=== PATIENT | female | born 1960 | race Two or more races ===

== ENCOUNTER 2020-02-11 13:58 | Inpatient (IN) | payer MEDICARE, OTHER ==
[~2020-02-11] VITALS: Ht 165.1 cm; Wt 74.9 kg
[2020-02-11 16:23] VITALS: BP 128/94
[2020-02-11] MEDS ORDERED: MAG HYDROX/AL HYDROX/SIMETH 30 ML ORAL.SUSP PO PRN ×2 (16:45)
[2020-02-11] MEDS ORDERED: METHYL SALICYLATE/MENTHOL TOPICAL OINTMENT 57GM TUBE. TP PRN ×2 (16:45)
[2020-02-11] MEDS ORDERED: MAGNESIUM HYDROXIDE 2,400 MG/30 ML ORAL.SUSP. PO PRN ×2 (16:45)
[2020-02-11] MEDS ORDERED: ACETAMINOPHEN 325 MG TABLET PO PRN (16:45)
--- NOTE | 2020-02-11 17:00 | NUR ---
Admission Note with Justification for Admission to [facility] Patient admitted to [facility] for protective oversight for emergency stabilization of acute psychiatric crisis. Pt admitted from: [facility] ER Mode of arrival: Secure Transport Accompanied By: Secure Transport Precipitating behaviors that initiated intake and admission: Patient was reportedly for agitation, aggression, scared, unable to settle, skin picking, and had six falls in a 24hour period. Description of failure of out patient attempts at stabilization in previous setting list behavior and medication trials: Patient recently returned form [facility], sent to [facility] ER Behaviors and assessment findings upon admission: Patient was minimally responsive to questions or directions. She did not assist in transfer from Secure transport and -weighted as staff transferred her into a wheelchair and then into her bed. She was minimally participatory in assessment and when asked questions. Patient has multiple tattoos and some mild redness in skin folds. She has several small wounds on her buttocks; photos taken. She also has small wounds in between her left great toe and second toe, and an abrasion just inferior to her left knee. Plan: Admit for protective oversight for adjustment and stabilization of medications, behaviors and mood. Intense treatment regimen including groups, medication adjustments, therapy, consistent regimen for ADL's, self care, and sleep hygiene. Daily monitoring by Inpatient staff, Psychiatry, and Medical Physician.
[2020-02-11] MEDS ORDERED: CETIRIZINE HCL 10 MG TABLET PO PRN (17:45)
[2020-02-11] MEDS ORDERED: LEVO25TA55 PO (17:50)
[2020-02-11] MEDS ORDERED: LORA-254 PO (17:50)
[2020-02-11] MEDS ORDERED: CETI10TA16 PO (17:50)
[2020-02-11] MEDS ORDERED: MELA3TAB4 PO (17:50)
[2020-02-11] MEDS ORDERED: LIPITOR80 MG PO (17:50)
[2020-02-11] MEDS ORDERED: CITA40TA12 PO (17:50)
[2020-02-11] MEDS ORDERED: METF500T16 PO (17:50)
[2020-02-11] MEDS ORDERED: LAMO100T5 PO (17:50)
[2020-02-11] MEDS ORDERED: METF10007 PO (17:50)
[2020-02-11] MEDS ORDERED: LISI10TA2 PO (17:50)
[2020-02-11] MEDS ORDERED: FAMO20TA5 PO (17:50)
[2020-02-11] MEDS: MELATONIN 3 MG TABLET PO SCH (20:52)
[2020-02-11] MEDS: ATORVASTATIN CALCIUM 20 MG TABLET PO SCH (20:52)
--- NOTE | 2020-02-11 21:11 | NUR ---
Pt lying in bed with eyes open at shift change. Pt calm but tearful at times, confused, and disorganized. Pt will will respond to questions with one word or short answers. Pt cooperative with assessment and compliant with medications administered whole in applesauce. Pt daughter/DPOA called and informed this nurse that pt better able to feed herself when given finger foods. Diet order modified in EMR.
--- NOTE | 2020-02-11 22:15 | PDOC ---
Exam Note: Gary Note: Please also refer to the separate dictated note~for this date of service dictated separately. Discussed the patient with Nursing staff reviewed the chart.~Reviewed interim history and current functioning. Reviewed vital signs,~Labs/ Radiology~and current medications noted below. Continue current treatment with the changes noted in the dictated addendum note Assessment: Vital Signs/I&O: Vital Signs Date Time Temp Pulse Resp B/P (MAP) Pulse Ox O2 Delivery O2 Flow Rate FiO2 02/11/20 20:26 98.3 95 02/11/20 16:23 102 18 128/94 (105) Current Medications: Meds: Current Medications Medications (Trade) Dose Ordered Sig/Britta Route PRN Reason Start Time Stop Time Status Last Admin Dose Admin Melatonin (Melatonin) 9 mg QHS PO 02/11/20 21:00 02/11/20 20:52 Atorvastatin Calcium (Lipitor) 80 mg QHS PO 02/11/20 21:00 02/11/20 20:52 I have reviewed the current psychotropics carefully including drug interactions. Risk benefit ratio favors no change other than as noted in my dictated progress note. KISHAN BECK MD Feb 11, 2020 22:15
[2020-02-12] MEDS: LEVOTHYROXINE 25 MCG TABLET. PO SCH (05:18)
[2020-02-12 05:43] VITALS: BP 119/74
[2020-02-12 07:34] LABS: ALBUMIN 3.2 g/dL (3.4-5.0); ALBUMIN/GLOBULIN RATIO 0.8 (1.0-1.7); CALCIUM 9.4 mg/dL (8.5-10.1); CREATININE 0.6 mg/dL (0.6-1.0); GFR 101.3; MAGNESIUM 1.8 mg/dL (1.8-2.4); POTASSIUM 3.3 mmol/L (3.5-5.1); TOTAL BILIRUBIN 0.5 mg/dL (0.2-1.0); TOTAL PROTEIN 7.3 g/dL (6.4-8.2)
[2020-02-12 07:47] LABS: BASO # 0.1 x10^3/uL (0.0-0.2); BASO % 1 % (0-3); EOS # 0.2 x10^3/uL (0.0-0.7); EOS % 3 % (0-3); HEMATOCRIT 44.6 % (36.0-47.0); LYMPH # 3.9 x10^3/uL (1.0-4.8); LYMPH % 44 % (24-48); MEAN CORPUSCULAR HEMOGLOBIN 32 pg (25-35); MEAN CORPUSCULAR HGB CONC 34 g/dL (31-37); MEAN CORPUSCULAR VOLUME 94 fL (79-100); MONO # 0.8 x10^3/uL (0.0-1.1); MONO % 9 % (0-9); NEUT # 3.9 x10^3uL (1.8-7.7); NEUT % 44 % (31-73); PLATELET COUNT 256 x10^3/uL (140-400); RED BLOOD COUNT 4.75 x10^6/uL (3.50-5.40); RED CELL DISTRIBUTION WIDTH 14.5 % (11.5-14.5); WHITE BLOOD COUNT 8.8 x10^3/uL (4.0-11.0)
[2020-02-12] MEDS: metFORMIN 500 MG TABLET PO SCH ×2 (09:22→17:20)
[2020-02-12] MEDS: LISINOPRIL 10 MG TABLET PO SCH (09:22)
[2020-02-12] MEDS: FAMOTIDINE 20 MG TABLET PO SCH (09:22)
[2020-02-12] MEDS: CITALOPRAM 20 MG TABLET. PO SCH (09:22)
[2020-02-12] MEDS: lamoTRIgine 100 MG TABLET. PO SCH (09:22)
[2020-02-12] MEDS ORDERED: POTASSIUM CHLORIDE 20 MEQ TABLET.ER. PO ONE (09:30)
[2020-02-12 15:57] VITALS: BP 138/81
[2020-02-12 16:31] LABS: THYROID STIM HORMONE (TSH) 1.386 uIU/mL (0.358-3.740)
--- NOTE | 2020-02-12 17:44 | NUR ---
Pt in room for morning meds and assessment. Pt sleeping, hard to wake for meds, but took them whole in pudding. Non-verbal for this nurse, tearful in the afternoon.
--- NOTE | 2020-02-12 20:09 | CONS ---
DATE OF CONSULTATION: 02/12/2020 REASON FOR CONSULTATION: Medical management. HISTORY OF PRESENT ILLNESS: The patient is a 60-year-old female patient who was referred from [facility], where she was seen for worsening agitation and aggression, she is scared, unable to settle, skin picking. She apparently was at [facility] and had had 6 falls and since then she has been unable to walk, all this in a background of major neurocognitive disorder, vascular Alzheimer with delusion, depression, behavioral disturbances. Medically, the patient is known to have hypertension, type 2 diabetes, gastroesophageal reflux disease, chronic back pain, and carpal tunnel syndrome. PAST PSYCHIATRIC HISTORY: Significant for schizophrenia, bipolar disorder, anxiety and Alzheimer's disease. PAST SURGICAL HISTORY: Unobtainable. ALLERGIES: She is allergic to ARIPIPRAZOLE and RISPERIDONE. MEDICATIONS: She is currently on cetirizine 10 mg once a day, atorvastatin calcium 80 mg once a day, lisinopril 10 mg once a day, lamotrigine 100 mg once a day, citalopram hydrobromide 40 mg once a day, lorazepam 0.5 mg every 6 hours, famotidine 20 mg once a day, metformin 1000 mg daily and 500 mg with supper, levothyroxine sodium 25 mcg once a day and melatonin 9 mg at bedtime. FAMILY HISTORY: Unobtainable. SOCIAL HISTORY: Unobtainable. PHYSICAL EXAMINATION: GENERAL: When I examined her this afternoon, she was resting slightly propped up in bed, in no apparent respiratory distress. She was pale, but no jaundice or cyanosis. No lymphadenopathy or thyromegaly. No jugular venous distention or limb edema. VITAL SIGNS: Her heart rate was 79, blood pressure was 138/81, temperature was 97.8, respiratory rate was 18 and oxygen saturation was 97%. HEAD, EYES, EARS, NOSE AND THROAT: Showed normocephalic, atraumatic. NECK: Supple. HEART: Showed normal first and second heart sounds. No gallop, rub or murmur. CHEST: Clear to auscultation. No crepitation or rhonchi. ABDOMEN: Distended, soft, nontender. NEUROLOGIC: She is awake, alert, opens eyes, occasionally attempts to mouth some words, but mostly she is nonverbal. She seemed to be able to move her upper extremities to much good extent than lower extremities and she has myoclonic jerks that is episodic and non-purposeful. LABORATORY DATA: Showed a white cell count of 8800, hemoglobin 15, hematocrit 44, MCV 94 and platelet count 256,000. Her serum sodium was 142, potassium 3.3, chloride 105, bicarbonate 29, anion gap of 8, BUN 8, creatinine 0.6, estimated GFR was 101 mL per minute. Her glucose was 100, calcium was 9.4, magnesium was 1.8. Serum iron, TIBC and iron saturation are low. Her total bilirubin, AST, ALT, alkaline phosphatase were normal. Total protein 7.3, albumin 3.2. Her serum triglycerides were 104, total cholesterol 105, LDL was 46, VLDL was 20, HDL was 39, the ratio was 2. Her vitamin B12 was 529 pg/mL, 25-hydroxy vitamin D is extremely low at 5.5 and her TSH was normal and her Treponema pallidum antibodies were nonreactive. IMPRESSION: In summary, this is a 60-year-old female patient who was admitted on account of increased agitation, aggression, scared, unable to settle, skin picking, she is mostly nonverbal, has had 6 falls after returning from [place], apparently all this in a background of major neurocognitive disorder, vascular Alzheimer with delusion, depression. Medically, she seemed to have some form of almost like myoclonic jerks. She is complaining of pain in her neck that she describes as shooting and in her lab work, she has hypokalemia and severe vitamin D deficiency. PLAN: My plan is to replenish potassium and vitamin D. I will also arrange for her to have a CT scan of her cervical spine and we will follow the rest of her lab work and make any necessary recommendations. Thank you, Dr. Cao for allowing me to participate in the care of this patient. LEE CASTANEDA MD DR: SUHAS/kitty JOB#: [id number] / [id number]
--- NOTE | 2020-02-12 20:23 | HP ---
ADMIT DATE: 02/11/2020 ADMISSION HISTORY/EVALUATION This late entry of 02/11/2020 covers the elements not covered in my initial note of 02/11/2020. SUBJECTIVE: I met with the patient in the evening of 02/11/2020. IDENTIFYING DATA: The patient is a 60-year-old female referred to us from [facility] where she presented from the skilled nursing where she resides on account of increased agitation and aggression. She had appeared paranoid, scared, unable to settle down, picking on her skin. This was all within the context of her dementia, Alzheimer's, vascular with delusions, behavioral disturbance. She was medically stable with no evidence of UTI, had failed outpatient psychiatric interventions, deemed a potential danger, disruptive, unable to be cared for at the facility resulting in this referral. CHIEF COMPLAINT: "No." HISTORY OF PRESENT ILLNESS: The patient has a history of dementia, Alzheimer's, vascular type. She has been residing at the above skilled nursing for some time. Recently, she has been more anxious, agitated with sleep and appetite changes, paranoid, marked mood lability, difficult to redirect, picking on her skin. She has failed outpatient psychiatric interventions resulting in this referral. PAST PSYCHIATRIC HISTORY: As above. MEDICAL HISTORY: Hypertension, type 2 diabetes mellitus, GERD, chronic back pain, carpal tunnel syndrome. ACCU-CHEKS: None. DIET: Regular, diabetic. She eats finger foods. Takes medications whole in applesauce, ambulates in Nina, normally ambulates with walker. ALLERGIES: ABILIFY. CODE STATUS: DNR. CURRENT PSYCHOTROPICS: Celexa 40 mg a day, Lamictal 100 mg a day, Ativan p.r.n., melatonin 9 mg at bedtime. FAMILY HISTORY: Noncontributory. SOCIAL HISTORY: No history of alcohol, drug abuse, physical, sexual or elder abuse. She is not known to be a perpetrator. REACTION TO HOSPITALIZATION: The patient oblivious of this. ASSETS: Supportive family, supportive living at the above facility. MENTAL STATUS EXAMINATION: I met with the patient in the evening of 02/11/2020 in her room. This was shortly after she was admitted. She was lying in bed, anxious, restless, constantly moving, oriented to herself, not very verbal. Insight, judgment, recent and remote memory, attention, concentration, fund of knowledge poor, consistent with her diagnoses. IMPRESSION: Major neurocognitive disorder, Alzheimer's, vascular with delusion; depression; behavioral disturbance; anxiety disorder, unspecified; impulse control disorder, unspecified. Rest unchanged as above. PLAN: Admit to Geropsychiatry Unit at . I will see the patient daily individually from a psychiatric standpoint. Medical followup per Dr. Hedrick/Dr. Salinas. Continue the patient on her current psychotropics, observe baseline, then adjust as clinically indicated. Consider changing Celexa to Zoloft and adjusting her Lamictal, considering an atypical antipsychotic Seroquel if psychotic symptoms, mood lability persist despite this. ESTIMATED LENGTH OF STAY: 10-12 days. DISPOSITION: Plans back to skilled nursing when stable. MAN Zenobia BECK MD DR: WILLIAM/kitty JOB#: [id number] / [id number]
[2020-02-12] MEDS: CHOLECALCIFEROL (VITAMIN D3) 50,000 UNIT CAPSULE PO SCH (20:35)
[2020-02-12] MEDS: ATORVASTATIN CALCIUM 20 MG TABLET PO SCH (20:35)
[2020-02-12] MEDS: POTASSIUM CHLORIDE 20 MEQ TABLET.ER. PO SCH (20:36)
[2020-02-12] MEDS: MELATONIN 3 MG TABLET PO SCH (20:36)
[2020-02-12] MEDS: LORazepam 0.5 MG TABLET PO PRN (20:40)
--- NOTE | 2020-02-12 20:42 | PN ---
DATE: 02/12/2020 PSYCHIATRIC PROGRESS NOTE This note covers elements not covered in my initial note 02/12/2020. SUBJECTIVE: I met with the patient evening of 02/12/2020 and staffed a treatment team meeting with the entire team morning of 02/12/2020. Reviewed further background historical information including history of frequent falls while at the half-way. She remains in a Broda chair, confused, unable to even feed herself, was nonweightbearing, potassium 3.31. Slept 7-1/2 hours previous night. At the treatment team meeting, we discussed with TRA Lees, Annemarie Carver and Randa, social service staff and Renata, activity therapy staff. In the evening, discussed with TRA Johnson. She has been tearful, somewhat tired in the morning. REVIEW OF SYSTEMS: No CV, , pulmonary, eye, ENT system symptoms on review. MENTAL STATUS EXAM: Oriented to herself. Insight, judgment, recent and remote memory, attention, concentration, fund of knowledge poor, consistent with her diagnoses. IMPRESSION: Major neurocognitive disorder, Alzheimer, vascular with delusion, depression, behavioral disturbance, anxiety disorder, unspecified; impulse control disorder, unspecified. Rest unchanged. PLAN: Continue psychotropics from initial note. Consider adding Seroquel as a mood stabilizer. We will give another 24 hours for baseline evaluation before deciding on this. Estimated length of stay 10-12 days. MAN Zenobia BECK MD DR: WILLIAM/kitty JOB#: [id number] / [id number]
--- NOTE | 2020-02-12 22:00 | NUR ---
Patient in her room on assumption of care, laying down in bed with her eyes open. Disorganized, confused, anxious, tearful. Seems to have difficulty verbalizing thoughts, responds to questions with one word answers if at all. Compliant with assessments and medications taken whole floated in applesauce. PRN Ativan given with HS meds for increased anxiety, with good effect. Patient appears to be sleeping comfortabably at present time. Will continue to monitor.
--- NOTE | 2020-02-12 22:08 | PDOC ---
Exam Note: Gary Note: Please also refer to the separate dictated note~for this date of service dictated separately.~Patient seen individually. Discussed the patient with Nursing staff reviewed the chart.~Reviewed interim history and current functioning. Reviewed vital signs,~Labs/ Radiology~and current medications noted below. Continue current treatment with the changes noted in the dictated addendum note Assessment: Vital Signs/I&O: Vital Signs Date Time Temp Pulse Resp B/P (MAP) Pulse Ox O2 Delivery O2 Flow Rate FiO2 02/12/20 22:04 97.8 96 02/12/20 15:57 79 138/81 (100) 02/12/20 05:43 18 Room Air I & O 02/11/20 02/11/20 02/12/20 15:00 23:00 07:00 Intake Total 440 ml Balance 440 ml Labs: Laboratory Tests Test 02/12/20 06:54 White Blood Count 8.8 x10^3/uL (4.0-11.0) Red Blood Count 4.75 x10^6/uL (3.50-5.40) Hemoglobin 15.0 g/dL (12.0-15.5) Hematocrit 44.6 % (36.0-47.0) Mean Corpuscular Volume 94 fL (79-100) Mean Corpuscular Hemoglobin 32 pg (25-35) Mean Corpuscular Hemoglobin Concent 34 g/dL (31-37) Red Cell Distribution Width 14.5 % (11.5-14.5) Platelet Count 256 x10^3/uL (140-400) Neutrophils (%) (Auto) 44 % (31-73) Lymphocytes (%) (Auto) 44 % (24-48) Monocytes (%) (Auto) 9 % (0-9) Eosinophils (%) (Auto) 3 % (0-3) Basophils (%) (Auto) 1 % (0-3) Neutrophils # (Auto) 3.9 x10^3uL (1.8-7.7) Lymphocytes # (Auto) 3.9 x10^3/uL (1.0-4.8) Monocytes # (Auto) 0.8 x10^3/uL (0.0-1.1) Eosinophils # (Auto) 0.2 x10^3/uL (0.0-0.7) Basophils # (Auto) 0.1 x10^3/uL (0.0-0.2) Sodium Level 142 mmol/L (136-145) Potassium Level 3.3 mmol/L (3.5-5.1) L Chloride Level 105 mmol/L (98-107) Carbon Dioxide Level 29 mmol/L (21-32) Anion Gap 8 (6-14) Blood Urea Nitrogen 8 mg/dL (7-20) Creatinine 0.6 mg/dL (0.6-1.0) Estimated GFR (Cockcroft-Gault) 101.3 BUN/Creatinine Ratio 13 (6-20) Glucose Level 100 mg/dL (70-99) H Calcium Level 9.4 mg/dL (8.5-10.1) Magnesium Level 1.8 mg/dL (1.8-2.4) Iron Level 59 ug/dL (50-170) Total Iron Binding Capacity 279 ug/dL (250-450) Iron Saturation 21 % (15-34) Total Bilirubin 0.5 mg/dL (0.2-1.0) Aspartate Amino Transferase (AST) 16 U/L (15-37) Alanine Aminotransferase (ALT) 24 U/L (14-59) Alkaline Phosphatase 61 U/L (46-116) Total Protein 7.3 g/dL (6.4-8.2) Albumin 3.2 g/dL (3.4-5.0) L Albumin/Globulin Ratio 0.8 (1.0-1.7) L Triglycerides Level 104 mg/dL (0-150) Cholesterol Level 105 mg/dL (0-200) LDL Cholesterol, Calculated 46 mg/dL (0-100) VLDL Cholesterol, Calculated 20 mg/dL (0-40) Non-HDL Cholesterol Calculated 66 mg/dL (0-129) HDL Cholesterol 39 mg/dL (40-60) L Cholesterol/HDL Ratio 2.0 Vitamin B12 Level 529 pg/mL (247-911) 25-Hydroxy Vitamin D Total 5.5 ng/mL (30-100) L Thyroid Stimulating Hormone (TSH) 1.386 uIU/mL (0.358-3.740) Treponema pallidum Antibody Nonreactive (Nonreactive) Current Medications: Meds: Current Medications Medications (Trade) Dose Ordered Sig/Britta Route PRN Reason Start Time Stop Time Status Last Admin Dose Admin Famotidine (Pepcid) 20 mg DAILY PO 02/12/20 09:00 02/12/20 09:22 Lamotrigine (LaMICtal) 100 mg DAILY PO 02/12/20 09:00 02/12/20 09:22 Levothyroxine Sodium (Synthroid) 25 mcg DAILY06 PO 02/12/20 06:00 02/12/20 05:18 Lisinopril (Prinivil) 10 mg DAILY PO 02/12/20 09:00 02/12/20 09:22 Metformin HCl (Glucophage) 500 mg DAILYBFRSUP PO 02/12/20 17:00 02/12/20 17:20 Citalopram Hydrobromide (CeleXA) 40 mg DAILY PO 02/12/20 09:00 02/12/20 09:22 Metformin HCl (Glucophage) 1,000 mg DAILYWBKFT PO 02/12/20 08:00 02/12/20 09:22 Potassium Chloride (Klor-Con) 40 meq 1X ONCE PO 02/12/20 09:30 02/12/20 09:31 DC 02/12/20 09:30 Vitamin D (Vitamin D3) 50,000 unit WEEKLY PO 02/12/20 19:10 02/12/20 20:35 Potassium Chloride (Klor-Con) 20 meq BID PO 02/12/20 21:00 02/12/20 20:36 I have reviewed the current psychotropics carefully including drug interactions. Risk benefit ratio favors no change other than as noted in my dictated progress note. Diagnosis: Problems: (1) Major neurocognitive disorder, due to vascular disease, with behavioral disturbance, mild (2) Dementia in Alzheimer's disease with delusions (3) Dementia in Alzheimer's disease with depression (4) Dementia, vascular, with delusions (5) Dementia, vascular, with depression (6) Anxiety disorder, unspecified (7) Impulse control disorder, unspecified KSIHAN BECK MD Feb 12, 2020 22:08
[2020-02-12 23:07] LABS: THYROXINE 7.8 ug/dL (4.5-12.0)
[2020-02-13 00:07] LABS: HEMOGLOBIN A1C 5.5 % (4.8-5.6)
[2020-02-13] MEDS: ACETAMINOPHEN 325 MG TABLET PO PRN (05:56)
[2020-02-13] MEDS: LEVOTHYROXINE 25 MCG TABLET. PO SCH (05:56)
[2020-02-13 06:40] VITALS: BP 129/87
[2020-02-13] MEDS: lamoTRIgine 100 MG TABLET. PO SCH (08:35)
[2020-02-13] MEDS: metFORMIN 500 MG TABLET PO SCH ×2 (08:35→16:23)
[2020-02-13] MEDS: FAMOTIDINE 20 MG TABLET PO SCH (08:35)
[2020-02-13] MEDS: POTASSIUM CHLORIDE 20 MEQ TABLET.ER. PO SCH ×2 (08:35→20:32)
[2020-02-13] MEDS: CITALOPRAM 20 MG TABLET. PO SCH (08:35)
[2020-02-13] MEDS: LISINOPRIL 10 MG TABLET PO SCH (08:36)
--- NOTE | 2020-02-13 13:47 | NUR ---
Patient was in the hallway during morning rounding working on her breakfast, took medications whole floated in apple sauce, allowed for morning assessment. Pt didn't appear to be anxious at this time, no agitation noted. Will continue to monitor.
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
[2020-02-13] MEDS: LORazepam 0.5 MG TABLET PO PRN (16:23)
[2020-02-13 16:28] VITALS: BP 124/83
--- NOTE | 2020-02-13 16:33 | EKG ---
[address] [address] Test Date: 2020-02-13 Test Time: 15:47:39 Pat Name: MARVIN GALDAMEZ Department: Room: [address] [place] [address] Gender: F Physical Anthropologist: : 1960 Requested By: KISHAN BECK Order Number: [id number] Reading MD: Galo Bose MD Measurements Intervals [place] Rate: 95 P: 52 KS: 158 QRS: 26 QRSD: 78 T: 16 QT: 348 QTc: 441 Interpretive Statements SINUS RHYTHM Electronically Signed On 02-19-2020 11:12:56 CDT by Galo Bose MD
--- NOTE | 2020-02-13 16:41 | NUR ---
Pt was in the hallway starting to become tearful, pt was upset, breathing deeply, PRN ativan given @1623. Pt is now calm and sitting by the nurse. Will continue to monitor.
[2020-02-13 18:27] LABS: BILIRUBIN,URINE NEG (NEG); CLARITY,URINE CLEAR; COLOR,URINE AMBER; GLUCOSE,URINE NEG (NEG); NITRITE,URINE NEG (NEG); RBC,URINE 0 /HPF (0-2)
[2020-02-13 18:28] LABS: BACTERIA,URINE FEW /HPF (0-FEW); HYALINE CASTS, URINE OCC /HPF; SQUAMOUS EPITHELIAL CELL,UR MOD /LPF
--- NOTE | 2020-02-13 19:18 | RAD ---
Exam: CT of abdomen and pelvis without contrast INDICATION: Left mass in groin TECHNIQUE: Sequential axial images through the abdomen and pelvis obtained without IV contrast. Sagittal and coronal reformatted images were reconstructed from the axial data and reviewed. Comparisons: None FINDINGS: Heart size is normal. No pericardial effusion. Evaluation lung bases limited secondary to respiratory motion. No pleural effusion. Evaluation of solid organs is limited secondary to noncontrast technique. Liver, spleen, pancreas, gallbladder and adrenals are unremarkable. No perinephric inflammation or hydronephrosis. No renal or ureteral calculi are identified. Bladder is decompressed not well evaluated. Red balloon is noted within the bladder. Uterus is not enlarged. No abnormal adnexal mass. Few scattered diverticula noted at the sigmoid colon without evidence of acute diverticulitis. The remainder of the large and small bowel are unremarkable. Appendix is not identified. No free intra-abdominal air or fluid. No obstruction. Abdominal aorta has a normal course and caliber. No enlarged abdominal lymph nodes are identified. No suspicious osseous lesions or acute fractures. IMPRESSION: 1. No groin mass identified. No inguinal hernia. 2. Diverticulosis without evidence of acute diverticulitis. Exposure: One or more of the following in the visualized dose reduction techniques were utilized for this examination: 1. Automated exposure control 2. Adjustment of the MA and/or KV according to patient size 3. Use of iterative of reconstructive technique Electronically signed by: Myles Quintero MD (02/13/2020 7:15 PM) [id number]
[2020-02-13] MEDS: MELATONIN 3 MG TABLET PO SCH (20:33)
[2020-02-13] MEDS: ATORVASTATIN CALCIUM 20 MG TABLET PO SCH (20:33)
--- NOTE | 2020-02-13 22:15 | PDOC ---
Exam Note: Gary Note: Please also refer to the separate dictated note~for this date of service dictated separately.~Patient seen individually. Discussed the patient with Nursing staff reviewed the chart.~Reviewed interim history and current functioning. Reviewed vital signs,~Labs/ Radiology~and current medications noted below. Continue current treatment with the changes noted in the dictated addendum note Assessment: Vital Signs/I&O: Vital Signs Date Time Temp Pulse Resp B/P (MAP) Pulse Ox O2 Delivery O2 Flow Rate FiO2 02/13/20 18:17 98.4 02/13/20 16:28 99 18 124/83 (97) 98 02/12/20 05:43 Room Air I & O 02/12/20 02/12/20 02/13/20 15:00 23:00 07:00 Intake Total 0 ml 1520 ml Balance 0 ml 1520 ml Labs: Laboratory Tests Test 02/13/20 17:56 Urine Collection Type U cath Urine Color Yadira Urine Clarity Clear Urine pH 6.0 Urine Specific [place] 1.020 Urine Protein Neg (NEG-TRACE) Urine Glucose (UA) Neg mg/dL (NEG) Urine Ketones (Stick) Trace mg/dL (NEG) Urine Blood Neg (NEG) Urine Nitrite Neg (NEG) Urine Bilirubin Neg (NEG) Urine Urobilinogen Dipstick 4.0 mg/dL (0.2 mg/dL) Urine Leukocyte Esterase Neg (NEG) Urine RBC 0 /HPF (0-2) Urine WBC 1-4 /HPF (0-4) Urine Squamous Epithelial Cells Mod /LPF Urine Bacteria Few /HPF (0-FEW) Urine Hyaline Casts Occ /HPF Urine Mucus Marked /LPF Current Medications: I have reviewed the current psychotropics carefully including drug interactions. Risk benefit ratio favors no change other than as noted in my dictated progress note. Diagnosis: Problems: (1) Impulse control disorder, unspecified (2) Anxiety disorder, unspecified (3) Dementia, vascular, with depression (4) Dementia, vascular, with delusions (5) Dementia in Alzheimer's disease with depression (6) Dementia in Alzheimer's disease with delusions (7) Major neurocognitive disorder, due to vascular disease, with behavioral disturbance, mild KISHAN BECK MD Feb 13, 2020 22:15
--- NOTE | 2020-02-14 01:10 | NUR ---
Nursing Note The patient was located in her room for her assessment and medication pass. The patient was very disorganized and was unable to reliably answer assessment questions. The patient was compliant with her medication and took them whole in ice cream. The patient was noted to have redness located on various areas of her body notably on her buttocks, side and shoulders. The patient is to be rotated from side to side on a 2 hour rotation to prevent skin breakdown and wounds. The patient is currently sleeping in her room.
[2020-02-14 05:59] VITALS: BP 132/76
[2020-02-14] MEDS: LEVOTHYROXINE 25 MCG TABLET. PO SCH (06:18)
[2020-02-14 07:43] LABS: BASO # 0.1 x10^3/uL (0.0-0.2); BASO % 1 % (0-3); EOS # 0.3 x10^3/uL (0.0-0.7); EOS % 3 % (0-3); HEMATOCRIT 44.4 % (36.0-47.0); HEMOGLOBIN 14.9 g/dL (12.0-15.5); LYMPH # 3.9 x10^3/uL (1.0-4.8); LYMPH % 36 % (24-48); MEAN CORPUSCULAR HEMOGLOBIN 32 pg (25-35); MEAN CORPUSCULAR HGB CONC 34 g/dL (31-37); MEAN CORPUSCULAR VOLUME 94 fL (79-100); MONO # 0.9 x10^3/uL (0.0-1.1); MONO % 9 % (0-9); NEUT # 5.5 x10^3uL (1.8-7.7); NEUT % 52 % (31-73); PLATELET COUNT 288 x10^3/uL (140-400); RED BLOOD COUNT 4.73 x10^6/uL (3.50-5.40); RED CELL DISTRIBUTION WIDTH 14.4 % (11.5-14.5); WHITE BLOOD COUNT 10.6 x10^3/uL (4.0-11.0)
[2020-02-14] MEDS: POTASSIUM CHLORIDE 20 MEQ TABLET.ER. PO SCH ×2 (08:10→20:07)
[2020-02-14] MEDS: lamoTRIgine 100 MG TABLET. PO SCH (08:10)
[2020-02-14] MEDS: FAMOTIDINE 20 MG TABLET PO SCH (08:10)
[2020-02-14] MEDS: CITALOPRAM 20 MG TABLET. PO SCH (08:10)
[2020-02-14] MEDS: LISINOPRIL 10 MG TABLET PO SCH (08:10)
--- NOTE | 2020-02-14 08:12 | NUR ---
Patient in Broda chair, asleep and snoring loudly with what sounds like intermittent apnea episodes. She does not appear to be having any s/s pain and does not appear anxious or agitated at this time.
[2020-02-14 08:34] LABS: ALBUMIN 3.1 g/dL (3.4-5.0); ALBUMIN/GLOBULIN RATIO 0.7 (1.0-1.7); CALCIUM 8.9 mg/dL (8.5-10.1); CREATININE 0.6 mg/dL (0.6-1.0); GFR 101.3; POTASSIUM 3.8 mmol/L (3.5-5.1); TOTAL BILIRUBIN 0.5 mg/dL (0.2-1.0); TOTAL PROTEIN 7.3 g/dL (6.4-8.2)
--- NOTE | 2020-02-14 09:33 | NUR ---
Morning medications given floated in applesauce. Patient continues to be drowsy and sleeping. Held metformin as patient did not eat breakfast. Will re-evaluate if she eats this morning.
[2020-02-14] MEDS: metFORMIN 500 MG TABLET PO SCH ×2 (09:52→17:00)
[2020-02-14] MEDS: LORazepam 0.5 MG TABLET PO PRN (10:19)
--- NOTE | 2020-02-14 10:21 | NUR ---
patient became very anxious, tearful and restless after being taken to the bathroom. Patient is in day room in broda chair. she is unable to state what is bothering her. PRN lorazepam given per order for anxiety.
[2020-02-14] MEDS: ACETAMINOPHEN 325 MG TABLET PO PRN (10:37)
--- NOTE | 2020-02-14 10:40 | NUR ---
Pt was saying she was in pain, asking for a pain pill. PRN tylenol given @1040. Pt is now in dayroom. Will continue to monitor.
--- NOTE | 2020-02-14 11:00 | NUR ---
ACTIVITY THERAPY ASSESSMENT Pt was laying down in her broda during the assessment. Pt was able to say yes and no at times, however she could not verbally and clearly communicate. Pt was able to make eye contact and facial expressions. Pt knows name however was unable to verbally confirm her age, location, and family. Pt has reddish, [place], and balck hair. Pt utilizes a broda to ambulate. Pt will need help with all forms of ADLs. Individual Therapy Assessment: Pt will engage In at least three individual/group activity therapy sessions per week that will increase recreation education and socialization. Addendum: 02/26/20 at 1049 by THEODORA KAPLAN ACT Goal changed 02/25: Pt. will participate in at least one individual/group activity therapy session before discharge
[2020-02-14 15:56] VITALS: BP 108/72
--- NOTE | 2020-02-14 18:23 | RAD ---
PQRS Compliance Statement: One or more of the following individualized dose reduction techniques were utilized for this examination: 1. Automated exposure control 2. Adjustment of the mA and/or kV according to patient size 3. Use of iterative reconstruction technique CT head and cervical spine without contrast 02/14/2020 5:12 PM INDICATION: Altered mental status with history of multiple falls COMPARISON: None available TECHNIQUE: Multiple axial CT images of the head were obtained from skull base through the vertex without intravenous contrast. Multiple axial CT images of the cervical spine were obtained without intravenous contrast. Coronal and sagittal reformats are provided. FINDINGS: Head: Ventricles, sulci and basal cisterns are prominent compatible with mild to moderate generalized cerebral volume loss. Low-attenuation in the periventricular white matter is suggestive of chronic small vessel ischemic changes. There is no hydrocephalus. Donaldson-white matter differentiation is normal. There is no acute intracranial hemorrhage. There is no mass, mass effect or midline shift. Posterior fossa is normal in appearance. Visualized portions of the orbits are normal. Mild mucosal thickening of the maxillary sinuses. Moderate mucosal thickening of the sphenoid sinus with air-fluid level. Mastoid air cells are well aerated. Scalp and calvaria are normal. Cervical spine: Rotation of the patient limits evaluation. No significant malalignment. Skull base is intact. Craniocervical junction is normal in appearance. Atlantoaxial articulation is normal. Vertebral body heights are maintained without evidence for acute fracture. Abnormality cervical spine spondylosis. During degrees of mild to moderate neuroforaminal stenosis. No significant osseous spinal canal stenosis. There is no prevertebral soft tissue swelling. Thyroid gland is normal in appearance. Visualized portions of the lung apices are normal without evidence for suspicious pulmonary nodule or infiltrate. IMPRESSION: 1. No acute intracranial hemorrhage. Mild to moderate generalized cerebral volume loss. Low-attenuation in the periventricular white matter is suggestive of chronic small vessel ischemic changes. 2. No acute fracture or malalignment of the cervical spine. Mild/moderate cervical spondylosis. 3. Mild to moderate mucosal plantar changes of the paranasal sinuses predominantly involving the sphenoid sinus. Electronically signed by: Shara Young MD (02/14/2020 6:21 PM) [facility]
[2020-02-14] MEDS: ATORVASTATIN CALCIUM 20 MG TABLET PO SCH (20:08)
[2020-02-14] MEDS: MELATONIN 3 MG TABLET PO SCH (20:08)
--- NOTE | 2020-02-14 21:56 | PDOC ---
Exam Note: Gary Note: Please also refer to the separate dictated note~for this date of service dictated separately.~Patient seen individually. Discussed the patient with Nursing staff reviewed the chart.~Reviewed interim history and current functioning. Reviewed vital signs,~Labs/ Radiology~and current medications noted below. Continue current treatment with the changes noted in the dictated addendum note Assessment: Vital Signs/I&O: Vital Signs Date Time Temp Pulse Resp B/P (MAP) Pulse Ox O2 Delivery O2 Flow Rate FiO2 02/14/20 15:56 97.5 69 18 108/72 (84) 97 Room Air I & O 02/13/20 02/13/20 02/14/20 15:00 23:00 07:00 Intake Total 720 ml 240 ml Output Total 200 ml Balance 720 ml 240 ml -200 ml Labs: Laboratory Tests Test 02/14/20 07:00 White Blood Count 10.6 x10^3/uL (4.0-11.0) Red Blood Count 4.73 x10^6/uL (3.50-5.40) Hemoglobin 14.9 g/dL (12.0-15.5) Hematocrit 44.4 % (36.0-47.0) Mean Corpuscular Volume 94 fL (79-100) Mean Corpuscular Hemoglobin 32 pg (25-35) Mean Corpuscular Hemoglobin Concent 34 g/dL (31-37) Red Cell Distribution Width 14.4 % (11.5-14.5) Platelet Count 288 x10^3/uL (140-400) Neutrophils (%) (Auto) 52 % (31-73) Lymphocytes (%) (Auto) 36 % (24-48) Monocytes (%) (Auto) 9 % (0-9) Eosinophils (%) (Auto) 3 % (0-3) Basophils (%) (Auto) 1 % (0-3) Neutrophils # (Auto) 5.5 x10^3uL (1.8-7.7) Lymphocytes # (Auto) 3.9 x10^3/uL (1.0-4.8) Monocytes # (Auto) 0.9 x10^3/uL (0.0-1.1) Eosinophils # (Auto) 0.3 x10^3/uL (0.0-0.7) Basophils # (Auto) 0.1 x10^3/uL (0.0-0.2) Sodium Level 138 mmol/L (136-145) Potassium Level 3.8 mmol/L (3.5-5.1) Chloride Level 105 mmol/L (98-107) Carbon Dioxide Level 22 mmol/L (21-32) Anion Gap 11 (6-14) Blood Urea Nitrogen 10 mg/dL (7-20) Creatinine 0.6 mg/dL (0.6-1.0) Estimated GFR (Cockcroft-Gault) 101.3 BUN/Creatinine Ratio 17 (6-20) Glucose Level 105 mg/dL (70-99) H Calcium Level 8.9 mg/dL (8.5-10.1) Total Bilirubin 0.5 mg/dL (0.2-1.0) Aspartate Amino Transferase (AST) 18 U/L (15-37) Alanine Aminotransferase (ALT) 23 U/L (14-59) Alkaline Phosphatase 61 U/L (46-116) Total Protein 7.3 g/dL (6.4-8.2) Albumin 3.1 g/dL (3.4-5.0) L Albumin/Globulin Ratio 0.7 (1.0-1.7) L Current Medications: I have reviewed the current psychotropics carefully including drug interactions. Risk benefit ratio favors no change other than as noted in my dictated progress note. Diagnosis: Problems: (1) Impulse control disorder, unspecified (2) Anxiety disorder, unspecified (3) Dementia, vascular, with depression (4) Dementia, vascular, with delusions (5) Dementia in Alzheimer's disease with depression (6) Dementia in Alzheimer's disease with delusions (7) Major neurocognitive disorder, due to vascular disease, with behavioral disturbance, mild KISHAN BECK MD Feb 14, 2020 21:56
--- NOTE | 2020-02-14 22:00 | NUR ---
Patient in her room on assumption of care, laying down in bed with her eyes open. Disorganized, confused, anxious. Seems to have difficulty verbalizing thoughts, responds to questions with one word answers if at all. Compliant with assessments and medications taken whole floated in applesauce. Patient appears to be sleeping comfortably at present time. Will continue to monitor.
--- NOTE | 2020-02-15 02:51 | PN ---
DATE: SUBJECTIVE: The patient was seen today at the request of the nursing staff as she seems to be encephalopathic. She has twitching movement in all 4 extremities that is sudden, ____ and she apparently has multiple falls when she was in [place] and she was extensively investigated. She had had a CT scan, which showed as she might have a subacute infarct. MRI could not be done because she was unable to sit still. In any case, I reviewed all her medication and she was on Celexa 40 mg and her symptoms are consistent with serotonin syndrome and I spoke with Dr. Cao and he agreed to discontinue the Celexa. PHYSICAL EXAMINATION: GENERAL: When I saw her this afternoon, she was resting slightly propped up in bed, no apparent distress. There was no pallor, jaundice, cyanosis or thyromegaly. No jugular venous distention. No lower limb edema. VITAL SIGNS: Her heart rate was 69, blood pressure was 108/72, temperature was 97.5, respiratory rate was 18 and oxygen saturation was 97%. HEAD, EYES, EARS, NOSE AND THROAT: Showed normocephalic, atraumatic. NECK: Supple. HEART: Showed normal first and second heart sounds. No gallop, rub or murmur. CHEST: Clear to auscultation. No crepitation or rhonchi. ABDOMEN: Distended, soft, nontender. NEUROLOGIC: She is awake, alert, but she is unresponsive, does not really respond verbally. She has all this twitching movement of both upper and lower extremities and therefore, I recommended to discontinue Celexa. I have arranged for her to have a CT scan of the head and cervical spine without contrast and given the dramatic decline in her mobility as apparently she was able to walk before, has had multiple falls before, I will arrange for her to have a total body bone scan probably on Sunday or Sunday. LEE CASTANEDA MD DR: SUHAS/kitty JOB#: [id number] / [id number]
[2020-02-15] MEDS: LEVOTHYROXINE 25 MCG TABLET. PO SCH (05:08)
[2020-02-15 06:26] VITALS: BP 108/73
--- NOTE | 2020-02-15 07:38 | PDOC ---
Exam Note: Gary Note: This note is a late entry for 02/13/2020 covers elements not covered in my initial note. Subjective: The patient was seen face to face in the evening of 02/13/2020. Nursing report was with Tammy DUTTA. She slept 2-3/4 hours previous night. She is complaining of abdominal pain, anxious. We will defer to Dr. Hedrick for the medical management. She received Ativan at 04.30.p.m. Review of Systems: No CV, , pulmonary, eye, ENT system symptoms on review. Reliability poor. Mental Status Exam: She was lying in bed. Insight and judgment, recent and remote memory, attention and concentration, fund of knowledge is poor consistent with her diagnoses. Laboratory Data: Reviewed. Impression: Major neurocognitive disorder, Alzheimer, vascular with delusions, depression and behavioral disturbance. Anxiety disorder unspecified. Impulse control disorder unspecified. Plan: The patient had a straight cath. Dr. Hedrick is working her up to rule out UTI. Continue psychotropics from initial note. Adjust further as clinically indicated. Assessment: Vital Signs/I&O: Vital Signs Date Time Temp Pulse Resp B/P (MAP) Pulse Ox O2 Delivery O2 Flow Rate FiO2 02/15/20 06:26 97.3 56 18 108/73 (85) 98 02/14/20 15:56 Room Air I & O 02/14/20 02/14/20 02/15/20 15:00 23:00 07:00 Intake Total 360 ml 240 ml Output Total 500 ml 250 ml Balance 360 ml -260 ml -250 ml Current Medications: I have reviewed the current psychotropics carefully including drug interactions. Risk benefit ratio favors no change other than as noted in my dictated progress note. Diagnosis: Problems: (1) Impulse control disorder, unspecified (2) Anxiety disorder, unspecified (3) Dementia, vascular, with depression (4) Dementia, vascular, with delusions (5) Dementia in Alzheimer's disease with depression (6) Dementia in Alzheimer's disease with delusions (7) Major neurocognitive disorder, due to vascular disease, with behavioral disturbance, mild KISHAN BECK MD Feb 15, 2020 07:38
--- NOTE | 2020-02-15 07:55 | PDOC ---
Exam Note: Gary Note: This note is a late entry for 02/14/2020 covers elements not covered in my initial note. Subjective: The patient was seen face to face in the evening of 02/14/2020. Nursing report was with Tammy DUTTA. She slept 5-1/2 hours previous night. She slept through breakfast, still complains of abdominal pain. I discussed the patient with Dr. Hedrick evening of 02/13. Dr. 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 She did have bladder scan which showed [address] Hedrick has recommended a Red catheter. She has a soft mass in the left inguinal area. CT abdomen was negative. Again defer to Dr. Hedrick. She was tearful, anxious. Received Ativan and Tylenol. Review of Systems: Ambulation impaired. She was lying in bed as I met with her. No CV, , pulmonary, eye, ENT system symptoms on review. Reliability poor. Mental Status Exam: Oriented to herself. Insight and judgment, recent and remote memory, attention and concentration, fund of knowledge is poor consistent with her diagnoses. Laboratory Data: Reviewed. Impression: Major neurocognitive disorder, Alzheimer, vascular with delusions, depression and behavioral disturbance. Anxiety disorder unspecified. Impulse control disorder unspecified. Plan: Stop the Celexa. Continue rest of the psychotropics from initial note. Adjust further as clinically indicated. Assessment: Vital Signs/I&O: Vital Signs Date Time Temp Pulse Resp B/P (MAP) Pulse Ox O2 Delivery O2 Flow Rate FiO2 02/15/20 06:26 97.3 56 18 108/73 (85) 98 02/14/20 15:56 Room Air I & O 02/14/20 02/14/20 02/15/20 15:00 23:00 07:00 Intake Total 360 ml 240 ml Output Total 500 ml 250 ml Balance 360 ml -260 ml -250 ml Current Medications: I have reviewed the current psychotropics carefully including drug interactions. Risk benefit ratio favors no change other than as noted in my dictated progress note. Diagnosis: Problems: (1) Impulse control disorder, unspecified (2) Anxiety disorder, unspecified (3) Dementia, vascular, with depression (4) Dementia, vascular, with delusions (5) Dementia in Alzheimer's disease with depression (6) Dementia in Alzheimer's disease with delusions (7) Major neurocognitive disorder, due to vascular disease, with behavioral disturbance, mild KISHAN BECK MD Feb 15, 2020 07:55
[2020-02-15] MEDS: FAMOTIDINE 20 MG TABLET PO SCH (08:35)
[2020-02-15] MEDS: POTASSIUM CHLORIDE 20 MEQ TABLET.ER. PO SCH ×2 (08:35→20:23)
[2020-02-15] MEDS: metFORMIN 500 MG TABLET PO SCH ×2 (08:36→17:09)
[2020-02-15] MEDS: lamoTRIgine 100 MG TABLET. PO SCH (08:36)
[2020-02-15] MEDS: LISINOPRIL 10 MG TABLET PO SCH (09:00)
[2020-02-15] MEDS: ACETAMINOPHEN 325 MG TABLET PO PRN (09:50)
--- NOTE | 2020-02-15 12:34 | NUR ---
Patient has been compliant, crying most of day. Will start to say a sentence then stop. Unable to verbalize concerns or needs. When asked if she had pain, pt said. "yes, over there". RN placed her hand on both sides of abdomen asking patient if it hurt, pt said yes. Dr Hedrick has orders for bone scan tomorrow since patient had 6 falls [employer]. Pt eats with assistance. RN had to crush pills and mix with applesauce as patient was chewing pills. Serotonin syndrome suspected by Dr Hedrick, Dr Cao stopped celexa. TM.
[2020-02-15 16:00] VITALS: BP 122/82
[2020-02-15] MEDS: MELATONIN 3 MG TABLET PO SCH (20:24)
[2020-02-15] MEDS: ATORVASTATIN CALCIUM 20 MG TABLET PO SCH (20:24)
--- NOTE | 2020-02-15 21:36 | NUR ---
Nursing note: Assumed care of pt in her room. She is withdrawn and tired. No c/o pain to me but she wasn't very interactive.
[2020-02-16] MEDS: LEVOTHYROXINE 25 MCG TABLET. PO SCH (05:44)
[2020-02-16 06:15] VITALS: BP 134/76
--- NOTE | 2020-02-16 06:48 | PDOC ---
Exam Note: Gary Note: This note is a late entry for 02/15/2020 covers elements not covered in my initial note. Subjective: The patient was seen face to face in the evening of 02/15/2020. Nursing report was with Radha DUTTA. She slept 7-1/2 hours previous night. She remains confused, but less restless, anxious and at times making very brief semi-lucid sentences per nursing staff. She takes her medications crushed in apple sauce. Dr. Hedrick has ordered a bone scan. UA is negative. We did stop her Celexa due to the consideration of serotonergic syndrome. Review of Systems: Ambulation impaired. No CV, , pulmonary, eye, ENT system symptoms on review. Mental Status Exam: Oriented to herself. Insight and judgment, recent and remote memory, attention and concentration, fund of knowledge is poor consistent with her diagnoses. Laboratory Data: Reviewed. Impression: Major neurocognitive disorder, Alzheimer, vascular with delusions, depression and behavioral disturbance. Anxiety disorder unspecified. Impulse control disorder unspecified. Plan: Maintain Lamictal 100 mg a day, Ativan p.r.n., melatonin 9 mg h.s. We will observe another 24 hours and then decide further changes in her psychotropics. Assessment: Vital Signs/I&O: Vital Signs Date Time Temp Pulse Resp B/P (MAP) Pulse Ox O2 Delivery O2 Flow Rate FiO2 02/16/20 06:15 97.4 75 18 134/76 (95) 96 02/15/20 16:00 Room Air I & O 02/15/20 02/15/20 02/16/20 14:59 22:59 06:59 Intake Total 480 ml 240 ml Output Total 500 ml 150 ml Balance 480 ml -260 ml -150 ml Labs: Laboratory Tests Test 02/15/20 10:00 Prothrombin Time 10.5 SEC (9.4-11.4) Prothrombin Time INR 1.0 (0.9-1.1) Ammonia 18 mcmol/L (11-34) Current Medications: I have reviewed the current psychotropics carefully including drug interactions. Risk benefit ratio favors no change other than as noted in my dictated progress note. Diagnosis: Problems: (1) Impulse control disorder, unspecified (2) Anxiety disorder, unspecified (3) Dementia, vascular, with depression (4) Dementia, vascular, with delusions (5) Dementia in Alzheimer's disease with depression (6) Dementia in Alzheimer's disease with delusions (7) Major neurocognitive disorder, due to vascular disease, with behavioral disturbance, mild KISHAN BECK MD Feb 16, 2020 06:48
[2020-02-16 07:53] LABS: CREATININE 0.6 mg/dL (0.6-1.0); GFR 101.3; POTASSIUM 4.1 mmol/L (3.5-5.1)
[2020-02-16 08:14] LABS: HEMATOCRIT 46.1 % (36.0-47.0); HEMOGLOBIN 15.6 g/dL (12.0-15.5); RED BLOOD COUNT 4.94 x10^6/uL (3.50-5.40); RED CELL DISTRIBUTION WIDTH 14.7 % (11.5-14.5); WHITE BLOOD COUNT 8.8 x10^3/uL (4.0-11.0)
[2020-02-16] MEDS: QUEtiapine 25 MG TABLET. PO SCH (08:51)
[2020-02-16] MEDS: POTASSIUM CHLORIDE 20 MEQ TABLET.ER. PO SCH ×2 (08:51→20:17)
[2020-02-16] MEDS: lamoTRIgine 100 MG TABLET. PO SCH (08:51)
[2020-02-16] MEDS: FAMOTIDINE 20 MG TABLET PO SCH (08:51)
[2020-02-16] MEDS: LISINOPRIL 10 MG TABLET PO SCH (08:52)
[2020-02-16] MEDS: metFORMIN 500 MG TABLET PO SCH ×2 (08:52→18:04)
--- NOTE | 2020-02-16 15:50 | NUR ---
Pt compliant with meds and assessment. Took meds crushed in pudding. Pt is non-verbal, doesn't appear to be in pain at this time.
[2020-02-16 16:03] VITALS: BP 115/89
--- NOTE | 2020-02-16 16:08 | RAD ---
Nuclear medicine whole body bone scan History: Recurrent falls with complaint of pain and poor mobility. Chronic back pain. Comparison: CT abdomen and pelvis without contrast, 3 days ago. Technique: Examination performed after intravenous administration of 25 mCi Technetium 99m MDP. Images of the whole body were obtained in the anterior and posterior projections after routine delay. PARKS and LPO static images of the ribs. Findings: Tracer uptake in the ribs is symmetric. Tracer uptake in the spine is moderately heterogeneous. There is increased tracer uptake of L3 and L4 that is likely due to multilevel facet hypertrophy and endplate sclerosis at L3/L4. Tracer uptake of pelvic bones is symmetric. Tracer in the urinary bladder obscures the pubic rami and the lower sacrum. Periarticular tracer uptake of the knees is probably degenerative. Tracer uptake in the feet is nonspecific. Tracer distribution in the soft tissues appears normal. IMPRESSION: There are no suspicious or acute bone scan findings. Electronically signed by: Demar Hernandez MD (02/16/2020 4:05 PM) [facility]
[2020-02-16] MEDS: MELATONIN 3 MG TABLET PO SCH (20:16)
[2020-02-16] MEDS: ATORVASTATIN CALCIUM 20 MG TABLET PO SCH (20:17)
--- NOTE | 2020-02-16 22:07 | PDOC ---
Exam Note: Gary Note: Please also refer to the separate dictated note~for this date of service dictated separately.~Patient seen individually. Discussed the patient with Nursing staff reviewed the chart.~Reviewed interim history and current functioning. Reviewed vital signs,~Labs/ Radiology~and current medications noted below. Continue current treatment with the changes noted in the dictated addendum note Assessment: Vital Signs/I&O: Vital Signs Date Time Temp Pulse Resp B/P (MAP) Pulse Ox O2 Delivery O2 Flow Rate FiO2 02/16/20 16:03 97.8 108 20 115/89 (98) 97 02/15/20 16:00 Room Air I & O 02/15/20 02/15/20 02/16/20 15:00 23:00 07:00 Intake Total 480 ml 240 ml Output Total 500 ml 150 ml Balance 480 ml -260 ml -150 ml Labs: Laboratory Tests Test 02/16/20 07:08 White Blood Count 8.8 x10^3/uL (4.0-11.0) Red Blood Count 4.94 x10^6/uL (3.50-5.40) Hemoglobin 15.6 g/dL (12.0-15.5) H Hematocrit 46.1 % (36.0-47.0) Mean Corpuscular Volume 93 fL (79-100) Mean Corpuscular Hemoglobin 32 pg (25-35) Mean Corpuscular Hemoglobin Concent 34 g/dL (31-37) Red Cell Distribution Width 14.7 % (11.5-14.5) H Platelet Count 340 x10^3/uL (140-400) Sodium Level 142 mmol/L (136-145) Potassium Level 4.1 mmol/L (3.5-5.1) Chloride Level 108 mmol/L (98-107) H Carbon Dioxide Level 23 mmol/L (21-32) Anion Gap 11 (6-14) Blood Urea Nitrogen 16 mg/dL (7-20) Creatinine 0.6 mg/dL (0.6-1.0) Estimated GFR (Cockcroft-Gault) 101.3 Glucose Level 112 mg/dL (70-99) H Calcium Level 9.0 mg/dL (8.5-10.1) Current Medications: Meds: Current Medications Medications (Trade) Dose Ordered Sig/Britta Route PRN Reason Start Time Stop Time Status Last Admin Dose Admin Quetiapine Fumarate (SEROquel) 12.5 mg DAILY PO 02/16/20 09:00 02/16/20 08:51 I have reviewed the current psychotropics carefully including drug interactions. Risk benefit ratio favors no change other than as noted in my dictated progress note. Diagnosis: Problems: (1) Impulse control disorder, unspecified (2) Anxiety disorder, unspecified (3) Dementia, vascular, with depression (4) Dementia, vascular, with delusions (5) Dementia in Alzheimer's disease with depression (6) Dementia in Alzheimer's disease with delusions (7) Major neurocognitive disorder, due to vascular disease, with behavioral disturbance, mild KISHAN BECK MD Feb 16, 2020 22:07
[2020-02-17] MEDS: LEVOTHYROXINE 25 MCG TABLET. PO SCH (05:23)
[2020-02-17 05:56] VITALS: BP 125/84
[2020-02-17] MEDS: buPROPion 100 MG TABLET PO SCH ×2 (08:54→20:29)
[2020-02-17] MEDS: LISINOPRIL 10 MG TABLET PO SCH (08:55)
[2020-02-17] MEDS: FAMOTIDINE 20 MG TABLET PO SCH (08:55)
[2020-02-17] MEDS: metFORMIN 500 MG TABLET PO SCH ×2 (08:56→17:24)
[2020-02-17] MEDS: lamoTRIgine 100 MG TABLET. PO SCH (08:56)
[2020-02-17] MEDS: QUEtiapine 25 MG TABLET. PO SCH (08:56)
[2020-02-17] MEDS: POTASSIUM CHLORIDE 20 MEQ TABLET.ER. PO SCH ×2 (08:57→20:30)
[2020-02-17] MEDS ORDERED: buPROPion XL 150 MG TAB.ER.24H PO SCH (09:00)
[2020-02-17] MEDS: LORazepam 0.5 MG TABLET PO PRN ×2 (12:54→18:10)
[2020-02-17] MEDS: ACETAMINOPHEN 325 MG TABLET PO PRN (12:55)
[2020-02-17 16:00] VITALS: BP 127/84
[2020-02-17] MEDS: oxyCODONE IR 5 MG TABLET PO PRN (18:10)
--- NOTE | 2020-02-17 18:12 | NUR ---
Patient is tearful and quivering, she appears to be hallucinating or having some thoughts that are distressing her. PRN given for anxiety. Patient is saying "ow' and "that hurts" but is unable to report wear her pain is. PRN pain medication given for pain. Patients nurse is at her side, assisting her to eat dinner and comforting her.
[2020-02-17] MEDS: MELATONIN 3 MG TABLET PO SCH (20:30)
[2020-02-17] MEDS: ATORVASTATIN CALCIUM 20 MG TABLET PO SCH (20:30)
--- NOTE | 2020-02-17 21:48 | PDOC ---
Exam Note: Gary Note: Please also refer to the separate dictated note~for this date of service dictated separately.~Patient seen individually. Discussed the patient with Nursing staff reviewed the chart.~Reviewed interim history and current functioning. Reviewed vital signs,~Labs/ Radiology~and current medications noted below. Continue current treatment with the changes noted in the dictated addendum note Assessment: Vital Signs/I&O: Vital Signs Date Time Temp Pulse Resp B/P (MAP) Pulse Ox O2 Delivery O2 Flow Rate FiO2 02/17/20 18:10 18 97 Room Air 02/17/20 16:00 97.9 94 127/84 (98) I & O 02/16/20 02/16/20 02/17/20 15:00 23:00 07:00 Intake Total 960 ml 360 ml Output Total 525 ml Balance 960 ml -165 ml Current Medications: Meds: Current Medications Medications (Trade) Dose Ordered Sig/Britta Route PRN Reason Start Time Stop Time Status Last Admin Dose Admin Bupropion HCl (Wellbutrin) 100 mg BID PO 02/17/20 09:00 02/17/20 20:29 Oxycodone HCl (Roxicodone) 5 mg PRN Q6HRS PRN PO PAIN, 2ND CHOICE 02/17/20 13:45 02/17/20 18:10 I have reviewed the current psychotropics carefully including drug interactions. Risk benefit ratio favors no change other than as noted in my dictated progress note. Diagnosis: Problems: (1) Impulse control disorder, unspecified (2) Anxiety disorder, unspecified (3) Dementia, vascular, with depression (4) Dementia, vascular, with delusions (5) Dementia in Alzheimer's disease with depression (6) Dementia in Alzheimer's disease with delusions (7) Major neurocognitive disorder, due to vascular disease, with behavioral disturbance, mild KISHAN BECK MD Feb 17, 2020 21:48
--- NOTE | 2020-02-18 01:40 | NUR ---
Last evening pt was in day room dozing in her broda. She was awake for meds taken in applesauce. She responds to name and only says a word or two if she speaks at all. After going to bed she has slept well and has had no behaviors tonight.
[2020-02-18] MEDS: LEVOTHYROXINE 25 MCG TABLET. PO SCH (05:24)
[2020-02-18 06:06] VITALS: BP 126/84
--- NOTE | 2020-02-18 07:44 | PDOC ---
Exam Note: Gary Note: This note is a late entry for 02/16/2020 covers elements not covered in my initial note. Subjective: The patient was seen face to face in the evening of 02/16/2020. Nursing report was with Elizabeth DUTTA. She slept 8-1/2 hours previous night. She is quite non-verbal, tearful, labile in her mood, anxious. Dr. Hedrick is following up medically. Bone scan has been requested. Review of Systems: Ambulation impaired. No CV, , pulmonary, eye, ENT system symptoms on review. Mental Status Exam: Oriented to herself. Insight and judgment, recent and remote memory, attention and concentration, fund of knowledge is poor consistent with her diagnoses. Laboratory Data: Reviewed. Impression: Major neurocognitive disorder, Alzheimer, vascular with delusions, depression and behavioral disturbance. Anxiety disorder unspecified. Impulse control disorder unspecified. Plan: Continue Lamictal 100 mg a day, Ativan p.r.n., melatonin 9 mg h.s., Seroquel 12.5 mg daily. Start Wellbutrin XL 150 mg a day for apathy, withdrawal, depressive symptoms. Adjust further as clinically indicated. Assessment: Vital Signs/I&O: Vital Signs Date Time Temp Pulse Resp B/P (MAP) Pulse Ox O2 Delivery O2 Flow Rate FiO2 02/18/20 06:06 97.8 86 22 126/84 (98) 95 02/17/20 18:10 Room Air I & O 02/17/20 02/17/20 02/18/20 15:00 23:00 07:00 Intake Total 720 ml 240 ml Output Total 1200 ml 525 ml Balance 720 ml -960 ml -525 ml Current Medications: Meds: Current Medications Medications (Trade) Dose Ordered Sig/Britta Route PRN Reason Start Time Stop Time Status Last Admin Dose Admin Bupropion HCl (Wellbutrin) 100 mg BID PO 02/17/20 09:00 02/17/20 20:29 Oxycodone HCl (Roxicodone) 5 mg PRN Q6HRS PRN PO PAIN, 2ND CHOICE 02/17/20 13:45 02/17/20 18:10 I have reviewed the current psychotropics carefully including drug interactions. Risk benefit ratio favors no change other than as noted in my dictated progress note. Diagnosis: Problems: (1) Impulse control disorder, unspecified (2) Anxiety disorder, unspecified (3) Dementia, vascular, with depression (4) Dementia, vascular, with delusions (5) Dementia in Alzheimer's disease with depression (6) Dementia in Alzheimer's disease with delusions (7) Major neurocognitive disorder, due to vascular disease, with behavioral disturbance, mild KISHAN BECK MD Feb 18, 2020 07:44
--- NOTE | 2020-02-18 07:45 | PDOC ---
Exam Note: Gray Note: This note is a late entry for 02/17/2020 covers elements not covered in my initial note. Subjective: The patient was seen face to face in the evening of 02/17/2020. Nursing report was with Elizabeth DUTTA. She slept 6-3/4 hours previous night. Pharmacy has substituted Wellbutrin XL 150 mg a day to Wellbutrin 100 mg twice a day since the patient chews her medications. Appetite is 50% for lunch. She is restless, tearful at lunch time. She received Seroquel 12.5 mg at 1 p.m. and we will use this scheduled. Review of Systems: Ambulation impaired. No CV, , pulmonary, eye, ENT system symptoms on review. Mental Status Exam: Oriented to herself. Insight and judgment, recent and remote memory, attention and concentration, fund of knowledge is poor consistent with her diagnoses. Laboratory Data: Reviewed. Impression: Major neurocognitive disorder, Alzheimer, vascular with delusions, depression and behavioral disturbance. Anxiety disorder unspecified. Impulse control disorder unspecified. Plan: She received Seroquel 12.5 mg at 1 p.m. and we will use this scheduled. Rest unchanged for now. Assessment: Vital Signs/I&O: Vital Signs Date Time Temp Pulse Resp B/P (MAP) Pulse Ox O2 Delivery O2 Flow Rate FiO2 02/18/20 06:06 97.8 86 22 126/84 (98) 95 02/17/20 18:10 Room Air I & O 02/17/20 02/17/20 02/18/20 15:00 23:00 07:00 Intake Total 720 ml 240 ml Output Total 1200 ml 525 ml Balance 720 ml -960 ml -525 ml Current Medications: Meds: Current Medications Medications (Trade) Dose Ordered Sig/Britta Route PRN Reason Start Time Stop Time Status Last Admin Dose Admin Bupropion HCl (Wellbutrin) 100 mg BID PO 02/17/20 09:00 02/17/20 20:29 Oxycodone HCl (Roxicodone) 5 mg PRN Q6HRS PRN PO PAIN, 2ND CHOICE 02/17/20 13:45 02/17/20 18:10 I have reviewed the current psychotropics carefully including drug interactions. Risk benefit ratio favors no change other than as noted in my dictated progress note. Diagnosis: Problems: (1) Impulse control disorder, unspecified (2) Anxiety disorder, unspecified (3) Dementia, vascular, with depression (4) Dementia, vascular, with delusions (5) Dementia in Alzheimer's disease with depression (6) Dementia in Alzheimer's disease with delusions (7) Major neurocognitive disorder, due to vascular disease, with behavioral disturbance, mild KISHAN BECK MD Feb 18, 2020 07:45
[2020-02-18] MEDS: buPROPion 100 MG TABLET PO SCH (08:37)
[2020-02-18] MEDS: metFORMIN 500 MG TABLET PO SCH ×2 (08:38→17:20)
[2020-02-18] MEDS: LORazepam 0.5 MG TABLET PO PRN ×2 (08:38→18:33)
[2020-02-18] MEDS: LISINOPRIL 10 MG TABLET PO SCH (08:38)
[2020-02-18] MEDS: FAMOTIDINE 20 MG TABLET PO SCH (08:38)
[2020-02-18] MEDS: lamoTRIgine 100 MG TABLET. PO SCH (08:38)
[2020-02-18] MEDS: POTASSIUM CHLORIDE 20 MEQ TABLET.ER. PO SCH ×2 (08:38→20:15)
[2020-02-18] MEDS: QUEtiapine 25 MG TABLET. PO SCH ×2 (08:39→12:50)
--- NOTE | 2020-02-18 15:43 | NUR ---
Patient has been labile, tearful, disorganized, and anxious this morning. She has difficulties following commands and answering questions; she occasionally makes random statements, otherwise says very little. She has been in bed since lunch, eyes closed, NAD. Will continue to monitor.
[2020-02-18 15:49] VITALS: BP 115/76
--- NOTE | 2020-02-18 18:34 | NUR ---
Patient has been tearful, anxious, calling out 'No' and 'Mama' as well as making whimpering sounds. Prn medication provided per eMAR, will continue to monitor.
--- NOTE | 2020-02-18 19:12 | TX PLAN ---
Interdisciplinary Tx Plan Admission Information Feb 11, 2020 at 15:47 Legal Status (on Admission): Voluntary DPOA/Guardian Name: Asia Bhatt Contact Other Contact Name: [facility] Other Contact Verified Code Status: DNR Allergies: Coded Allergies: aripiprazole (Verified Allergy, Intermediate, 02/11/20) risperidone (Verified Allergy, Intermediate, 02/11/20) Diagnoses Primary Diagnosis: Major Neurocognitive D/O vascular Alzheimer's with delusions, depressions, BD; Anxiety D/O unspecified, Impulse Control D/O Reasons for Admission: Agitated, Anxiety/Panic, Poor impulse control, Other Problem in Patient's Words: Decline within her Dementia Additional Admission Comments: According to the intake, pt is anxious, agitated, scared and unable to be redirected. Pt is impulsive, name calling, verbally aggressive and picking her skin. Problems Active Problems: Delusions Impulsive Tearful Anxious Restless Inactive Problems: Medication compliant Pt Strengths/Limitations Ability for [place]: Poor Cognitive Functioning/Ability: Poor Communication Skills/Ability: Poor Financial Resources: Fair Insight/Judgement: Poor Intellectual Ability: Poor Physical Health: Poor Social Skills: Poor Stability in Family: Fair Stability in School/Work: Poor Verbal Skills: Poor Discharge Criteria Discharge Criteria: No need for close observ., Adequate arrangements @DC, Improved behavior, Improved mood/thought Preliminary Discharge Plan Preliminary DC Plan: Current Living Arrange. Special Precautions Fall Risk: Moderate Initial D/C Plan Pt will plan to return to [facility] Identified Discharge Needs: Continued psychiatric follow up Currently Utilized Resources Currently Utilized Resources/P: PCP Psychiatrist Identified Problems/Hx/Goals Objectives/Short-Term Goals Short Term Goals: Dec. Anxiety/Panic, Dec. Hallucination/Delus, Dec. Outbursts, Medication Stabilization, Promote Coping Skill Short Term Goals in Patient's: N/A Interventions/Frequency Staff Interventions/Frequency&: Psychiatrist to asses pt at least 3x per week. Social Work to assess pt at least 2x per week. Nursing to assess medications, behaviors and complete 15 minutes checks daily Encouarge participation in activities or 1:1 engagement based of activity assessment and goals. 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 Education: Pt did graduate high school in 1975 and attended some college courses. Pt applied for the police academy and completed over 3/4 of the program before dropping out. "She never finished anything". Community Follow-up PCP Psychiatrist Treatment Plan Explained Patient/Wide Area Network Administrator had this treatment plan explained to him/her as indicated by the signature below and has been given the opportunity to ask questions and make suggestions: Date: Patient/Wide Area Network Administrator Signature: Patient/Wide Area Network Administrator Decline: No (Pt dtr to participate in pt care on [facility] JOSY RUSSO Feb 18, 2020 19:12
[2020-02-18] MEDS: MELATONIN 3 MG TABLET PO SCH (20:14)
[2020-02-18] MEDS: ATORVASTATIN CALCIUM 20 MG TABLET PO SCH (20:14)
--- NOTE | 2020-02-18 22:10 | PDOC ---
Exam Note: Gary Note: Please also refer to the separate dictated note~for this date of service dictated separately.~Patient seen individually. Discussed the patient with Nursing staff reviewed the chart.~Reviewed interim history and current functioning. Reviewed vital signs,~Labs/ Radiology~and current medications noted below. Continue current treatment with the changes noted in the dictated addendum note Assessment: Vital Signs/I&O: Vital Signs Date Time Temp Pulse Resp B/P (MAP) Pulse Ox O2 Delivery O2 Flow Rate FiO2 02/18/20 15:49 97.2 94 16 115/76 (89) 96 02/17/20 18:10 Room Air I & O 02/17/20 02/17/20 02/18/20 15:00 23:00 07:00 Intake Total 720 ml 240 ml Output Total 1200 ml 525 ml Balance 720 ml -960 ml -525 ml Current Medications: Meds: Current Medications Medications (Trade) Dose Ordered Sig/Britta Route PRN Reason Start Time Stop Time Status Last Admin Dose Admin Quetiapine Fumarate (SEROquel) 12.5 mg Q24H PO 02/18/20 13:00 02/18/20 12:50 I have reviewed the current psychotropics carefully including drug interactions. Risk benefit ratio favors no change other than as noted in my dictated progress note. Diagnosis: Problems: (1) Impulse control disorder, unspecified (2) Anxiety disorder, unspecified (3) Dementia, vascular, with depression (4) Dementia, vascular, with delusions (5) Dementia in Alzheimer's disease with depression (6) Dementia in Alzheimer's disease with delusions (7) Major neurocognitive disorder, due to vascular disease, with behavioral disturbance, mild KISHAN BECK MD Feb 18, 2020 22:10
[2020-02-19 05:25] VITALS: BP 123/86
[2020-02-19] MEDS: ACETAMINOPHEN 325 MG TABLET PO PRN (06:00)
[2020-02-19] MEDS: LEVOTHYROXINE 25 MCG TABLET. PO SCH (06:01)
--- NOTE | 2020-02-19 06:10 | NUR ---
Last evening pt was in day room, she responded to name but barely spoke. Meds were given crushed in pudding with some prompting. She was cooperative with cares and slept fairly well. When awake through the night she laid in bed quietly. This morning she is in her broda in the day room quietly sobbing and appears anxious. She will not answer questions but did nod yes to having pain but gave no indication of where she hurts. PRN tylenol given .
--- NOTE | 2020-02-19 07:16 | PN ---
DATE: 02/18/2020 PSYCHIATRIC PROGRESS NOTE This late entry 02/18/2020 covers elements not covered in my initial note. SUBJECTIVE: I met with the patient evening of 02/18/2020. Per TRA Andrews, the patient slept 1-3/4 hours previous night. She remains confused, anxious, restless, disorganized. REVIEW OF SYSTEMS: Ambulation impaired. She is in Broda chair extremely tearful, labile in her mood, confused, crying as I met with her in the evening. REVIEW OF SYSTEMS: No CV, , pulmonary, eye system symptoms on review. Reliability poor. MENTAL STATUS EXAM: Oriented to herself. Insight, judgment, recent and remote memory, attention, concentration, fund of knowledge poor, consistent with her diagnoses. IMPRESSION: Major neurocognitive disorder, Alzheimer, vascular with delusion, depression, behavioral disturbance; anxiety disorder, unspecified; impulse control disorder, unspecified. Rest unchanged. PLAN: The patient's Wellbutrin-XL 150 mg a day was changed to Wellbutrin 100 mg a.m. and at bedtime per pharmacy intervention. The bedtime Wellbutrin could well be worsening her marked insomnia and we will change it to 100 mg 9 a.m. and noon. Continue rest unchanged, but may need to increase her Seroquel as a mood stabilizer, currently at 12.5 mg daily and 1 p.m. MAN Zenobia BECK MD DR: WILLIAM/kitty JOB#: [id number] / [id number]
[2020-02-19] MEDS: FAMOTIDINE 20 MG TABLET PO SCH (08:33)
[2020-02-19] MEDS: lamoTRIgine 100 MG TABLET. PO SCH (08:33)
[2020-02-19] MEDS: CHOLECALCIFEROL (VITAMIN D3) 50,000 UNIT CAPSULE PO SCH (08:33)
[2020-02-19] MEDS: buPROPion 100 MG TABLET PO SCH ×2 (08:33→14:10)
[2020-02-19] MEDS: POTASSIUM CHLORIDE 20 MEQ TABLET.ER. PO SCH ×2 (08:33→20:39)
[2020-02-19] MEDS: metFORMIN 500 MG TABLET PO SCH ×2 (08:33→17:00)
[2020-02-19] MEDS: QUEtiapine 25 MG TABLET. PO SCH ×2 (08:34→14:10)
[2020-02-19] MEDS: oxyCODONE IR 5 MG TABLET PO PRN (08:34)
[2020-02-19] MEDS: LISINOPRIL 10 MG TABLET PO SCH (08:34)
--- NOTE | 2020-02-19 10:25 | NUR ---
WEEKLY ACTIVITY THERAPY NOTE Date of Admission: 02/11/20 Date of AT Assessment: 02/14/20 Precipitating behaviors that initiated intake and admission: Patient was reportedly for agitation, aggression, scared, unable to settle, skin picking, and had six falls in a 24hour period. Goal aimed: to increase recreation education and socialization Initial Goal: Pt will engage In at least three individual/group activity therapy sessions per week Weekly progress towards goal: achieved 3/3 Group participation level: varied Weekly highlights: listened to music Behaviors observed: isolated to room (admission policy on ), sleeps a lot, tearful/ crying spells, restless, not around group much Plan: no change to goal Beneficial adaptations: sensory stimulation possibly
[2020-02-19 10:54] LABS: BASO # 0.1 x10^3/uL (0.0-0.2); BASO % 1 % (0-3); EOS # 0.3 x10^3/uL (0.0-0.7); EOS % 3 % (0-3); HEMATOCRIT 45.7 % (36.0-47.0); HEMOGLOBIN 15.4 g/dL (12.0-15.5); LYMPH # 3.2 x10^3/uL (1.0-4.8); LYMPH % 32 % (24-48); MEAN CORPUSCULAR HEMOGLOBIN 31 pg (25-35); MEAN CORPUSCULAR HGB CONC 34 g/dL (31-37); MEAN CORPUSCULAR VOLUME 92 fL (79-100); MONO # 0.8 x10^3/uL (0.0-1.1); MONO % 8 % (0-9); NEUT # 5.6 x10^3uL (1.8-7.7); NEUT % 56 % (31-73); PLATELET COUNT 352 x10^3/uL (140-400); RED BLOOD COUNT 4.97 x10^6/uL (3.50-5.40); RED CELL DISTRIBUTION WIDTH 14.4 % (11.5-14.5)
[2020-02-19 11:04] LABS: ALBUMIN 3.4 g/dL (3.4-5.0); ALBUMIN/GLOBULIN RATIO 0.9 (1.0-1.7); CALCIUM 9.9 mg/dL (8.5-10.1); CREATININE 0.7 mg/dL (0.6-1.0); GFR 84.8; TOTAL BILIRUBIN 0.5 mg/dL (0.2-1.0); TOTAL PROTEIN 7.4 g/dL (6.4-8.2)
--- NOTE | 2020-02-19 11:54 | TX PLAN ---
Interdisciplinary Tx Plan Admission Information Feb 11, 2020 at 15:47 Legal Status (on Admission): Voluntary DPOA/Guardian Name: Asia Bhatt Contact Other Contact Name: [facility] Other Contact Verified Code Status: DNR Allergies: Coded Allergies: aripiprazole (Verified Allergy, Intermediate, 02/11/20) risperidone (Verified Allergy, Intermediate, 02/11/20) Diagnoses Primary Diagnosis: Major Neurocognitive D/O vascular Alzheimer's with delusions, depressions, BD; Anxiety D/O unspecified, Impulse Control D/O Reasons for Admission: Agitated, Anxiety/Panic, Poor impulse control, Other Problem in Patient's Words: Decline within her Dementia Additional Admission Comments: According to the intake, pt is anxious, agitated, scared and unable to be redirected. Pt is impulsive, name calling, verbally aggressive and picking her skin. Problems Active Problems: Delusions Impulsive Tearful Anxious Restless Inactive Problems: Medication compliant Pt Strengths/Limitations Ability for [place]: Poor Cognitive Functioning/Ability: Poor Communication Skills/Ability: Poor Financial Resources: Fair Insight/Judgement: Poor Intellectual Ability: Poor Physical Health: Poor Social Skills: Poor Stability in Family: Fair Stability in School/Work: Poor Verbal Skills: Poor Discharge Criteria Discharge Criteria: No need for close observ., Adequate arrangements @DC, Improved behavior, Improved mood/thought Preliminary Discharge Plan Preliminary DC Plan: Current Living Arrange. Special Precautions Fall Risk: Moderate Initial D/C Plan Pt will plan to return to [facility] Identified Discharge Needs: Continued psychiatric follow up Currently Utilized Resources Currently Utilized Resources/P: PCP Psychiatrist Identified Problems/Hx/Goals Objectives/Short-Term Goals Short Term Goals: Dec. Anxiety/Panic, Dec. Hallucination/Delus, Dec. Outbursts, Medication Stabilization, Promote Coping Skill Short Term Goals in Patient's: N/A Interventions/Frequency Staff Interventions/Frequency&: Psychiatrist to asses pt at least 3x per week. Social Work to assess pt at least 2x per week. Nursing to assess medications, behaviors and complete 15 minutes checks daily Encouarge participation in activities or 1:1 engagement based of activity assessment and goals. 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 Education: Pt did graduate high school in 1975 and attended some college courses. Pt applied for the police academy and completed over 3/4 of the program before dropping out. "She never finished anything". Community Follow-up PCP Psychiatrist Treatment Plan Explained Patient/Enamel Cracker had this treatment plan explained to him/her as indicated by the signature below and has been given the opportunity to ask questions and make suggestions: Date: Patient/Enamel Cracker Signature: Status Update Update Please note that pt first treatment team was held on 02/11. This is an update on pt care on [facility]. Pt dtr, Asia, participated in tx team via telephone. Pt is eating roughly 50% of meals and sleeping on average 6 hours per night. Pt is medication compliant; however, pt is tearful, anxious and very restless. Pt tends to be mute with staff during the assessment, but during periods of hallucinations, pt is seen talking to herself and to others who are not present. 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 Pt will have her Depakote increased to 250mg q HS with labs and levels in 3 days. Pt will plan to return to [facility] once stable. SW will continue to follow up with pt dtr and the facility on pt progress. JOSY RUSSO Feb 19, 2020 11:54
--- NOTE | 2020-02-19 13:30 | NUR ---
Patient has been labile, tearful, disorganized, and anxious this morning. She was hallucinating, reaching out above her to grab whatever she is seeing. At breakfast, patient did answer 'yes' when asked if she had pain; prn medication provided. She has been in bed since just before lunch, eyes closed, NAD. Will continue to monitor.
--- NOTE | 2020-02-19 14:15 | NUR ---
Patient is in bed, eyes open, laying quietly. Scheduled meds provided per eMAR. Patient is calm, will let her sta in bed for now and continue to monitor.
[2020-02-19 15:31] VITALS: BP 94/66
--- NOTE | 2020-02-19 17:56 | NUR ---
Unit [facility] are not connecting to hospital network. Suppertime medications administered manually.
[2020-02-19] MEDS: DIVALPROEX 125 MG CAP.SPRINK PO SCH (20:39)
[2020-02-19] MEDS: MELATONIN 3 MG TABLET PO SCH (20:39)
[2020-02-19] MEDS: ATORVASTATIN CALCIUM 20 MG TABLET PO SCH (20:39)
--- NOTE | 2020-02-19 22:27 | PDOC ---
Exam Note: Gary Note: Please also refer to the separate dictated note~for this date of service dictated separately.~Patient seen individually. Discussed the patient with Nursing staff reviewed the chart.~Reviewed interim history and current functioning. Reviewed vital signs,~Labs/ Radiology~and current medications noted below. Continue current treatment with the changes noted in the dictated addendum note Assessment: Vital Signs/I&O: Vital Signs Date Time Temp Pulse Resp B/P (MAP) Pulse Ox O2 Delivery O2 Flow Rate FiO2 02/19/20 15:31 97.8 93 18 94/66 (75) 96 02/19/20 09:40 Room Air I & O 02/18/20 02/18/20 02/19/20 15:00 23:00 07:00 Intake Total 600 ml 480 ml Output Total 650 ml Balance 600 ml 480 ml -650 ml Labs: Laboratory Tests Test 02/19/20 10:17 White Blood Count 10.0 x10^3/uL (4.0-11.0) Red Blood Count 4.97 x10^6/uL (3.50-5.40) Hemoglobin 15.4 g/dL (12.0-15.5) Hematocrit 45.7 % (36.0-47.0) Mean Corpuscular Volume 92 fL (79-100) Mean Corpuscular Hemoglobin 31 pg (25-35) Mean Corpuscular Hemoglobin Concent 34 g/dL (31-37) Red Cell Distribution Width 14.4 % (11.5-14.5) Platelet Count 352 x10^3/uL (140-400) Neutrophils (%) (Auto) 56 % (31-73) Lymphocytes (%) (Auto) 32 % (24-48) Monocytes (%) (Auto) 8 % (0-9) Eosinophils (%) (Auto) 3 % (0-3) Basophils (%) (Auto) 1 % (0-3) Neutrophils # (Auto) 5.6 x10^3uL (1.8-7.7) Lymphocytes # (Auto) 3.2 x10^3/uL (1.0-4.8) Monocytes # (Auto) 0.8 x10^3/uL (0.0-1.1) Eosinophils # (Auto) 0.3 x10^3/uL (0.0-0.7) Basophils # (Auto) 0.1 x10^3/uL (0.0-0.2) Sodium Level 139 mmol/L (136-145) Potassium Level 4.0 mmol/L (3.5-5.1) Chloride Level 105 mmol/L (98-107) Carbon Dioxide Level 21 mmol/L (21-32) Anion Gap 13 (6-14) Blood Urea Nitrogen 15 mg/dL (7-20) Creatinine 0.7 mg/dL (0.6-1.0) Estimated GFR (Cockcroft-Gault) 84.8 BUN/Creatinine Ratio 21 (6-20) H Glucose Level 148 mg/dL (70-99) H Calcium Level 9.9 mg/dL (8.5-10.1) Total Bilirubin 0.5 mg/dL (0.2-1.0) Aspartate Amino Transferase (AST) 16 U/L (15-37) Alanine Aminotransferase (ALT) 28 U/L (14-59) Alkaline Phosphatase 73 U/L (46-116) Total Protein 7.4 g/dL (6.4-8.2) Albumin 3.4 g/dL (3.4-5.0) Albumin/Globulin Ratio 0.9 (1.0-1.7) L Current Medications: Meds: Current Medications Medications (Trade) Dose Ordered Sig/Britta Route PRN Reason Start Time Stop Time Status Last Admin Dose Admin Bupropion HCl (Wellbutrin) 100 mg 0900,1300 PO 02/19/20 09:00 02/19/20 14:10 Divalproex Sodium (Depakote Sprinkles) 250 mg HS PO 02/19/20 21:00 02/19/20 20:39 I have reviewed the current psychotropics carefully including drug interactions. Risk benefit ratio favors no change other than as noted in my dictated progress note. Diagnosis: Problems: (1) Impulse control disorder, unspecified (2) Anxiety disorder, unspecified (3) Dementia, vascular, with depression (4) Dementia, vascular, with delusions (5) Dementia in Alzheimer's disease with depression (6) Dementia in Alzheimer's disease with delusions (7) Major neurocognitive disorder, due to vascular disease, with behavioral disturbance, mild KISHAN BECK MD Feb 19, 2020 22:27
--- NOTE | 2020-02-20 00:25 | NUR ---
Last evening pt was in bed and was alert and cooperative. Meds were taken crushed in pudding. She responds to speaker but does not answer. No behaviors tonight.
[2020-02-20] MEDS: LEVOTHYROXINE 25 MCG TABLET. PO SCH (05:28)
[2020-02-20 05:57] VITALS: BP 127/86
[2020-02-20] MEDS: lamoTRIgine 100 MG TABLET. PO SCH (08:00)
[2020-02-20] MEDS: LISINOPRIL 10 MG TABLET PO SCH (08:00)
[2020-02-20] MEDS: FAMOTIDINE 20 MG TABLET PO SCH (08:01)
[2020-02-20] MEDS: oxyCODONE IR 5 MG TABLET PO PRN ×3 (08:01→22:30)
[2020-02-20] MEDS: buPROPion 100 MG TABLET PO SCH ×2 (08:01→12:31)
[2020-02-20] MEDS: metFORMIN 500 MG TABLET PO SCH ×2 (08:01→17:10)
[2020-02-20] MEDS: POTASSIUM CHLORIDE 20 MEQ TABLET.ER. PO SCH ×2 (08:02→20:08)
[2020-02-20] MEDS: QUEtiapine 25 MG TABLET. PO SCH ×2 (08:02→12:31)
[2020-02-20 15:45] VITALS: BP 107/74
[2020-02-20] MEDS ORDERED: traZODone 50 MG TABLET. PO PRN (17:45)
--- NOTE | 2020-02-20 18:09 | NUR ---
Patient was labile, tearful, disorganized, and anxious this morning. She was hallucinating, reaching out above her to grab whatever she is seeing. At breakfast, patient complained of pain; prn medication provided. She was calmer throughout the rest of the morning and into the afternoon, becoming more agitated at supper. Patient again complained of pain; prn med provided per eMAR. Will continue to monitor.
[2020-02-20 18:39] LABS: BILIRUBIN,URINE NEG (NEG); CLARITY,URINE CLOUDY; COLOR,URINE AMBER; GLUCOSE,URINE NEG (NEG)
[2020-02-20 18:40] LABS: BACTERIA,URINE MANY /HPF (0-FEW); NITRITE,URINE NEG (NEG); RBC,URINE >40 /HPF (0-2); SQUAMOUS EPITHELIAL CELL,UR FEW /LPF; WBC,URINE >40 /HPF (0-4)
[2020-02-20] MEDS: MELATONIN 3 MG TABLET PO SCH (20:08)
[2020-02-20] MEDS: ATORVASTATIN CALCIUM 20 MG TABLET PO SCH (20:08)
[2020-02-20] MEDS: DIVALPROEX 125 MG CAP.SPRINK PO SCH (20:09)
[2020-02-20] MEDS: traZODone 50 MG TABLET. PO SCH (20:09)
--- NOTE | 2020-02-20 22:21 | PDOC ---
Exam Note: Gary Note: Please also refer to the separate dictated note~for this date of service dictated separately.~Patient seen individually. Discussed the patient with Nursing staff reviewed the chart.~Reviewed interim history and current functioning. Reviewed vital signs,~Labs/ Radiology~and current medications noted below. Continue current treatment with the changes noted in the dictated addendum note Assessment: Vital Signs/I&O: Vital Signs Date Time Temp Pulse Resp B/P (MAP) Pulse Ox O2 Delivery O2 Flow Rate FiO2 02/20/20 18:27 16 98 Room Air 02/20/20 15:45 97.8 104 107/74 (85) I & O 02/19/20 02/19/20 02/20/20 15:00 23:00 07:00 Intake Total 720 ml 480 ml Output Total 550 ml Balance 720 ml 480 ml -550 ml Labs: Laboratory Tests Test 02/20/20 18:10 Urine Collection Type U cath Urine Color Yadira Urine Clarity Cloudy Urine pH 7.5 Urine Specific Irons 1.025 Urine Protein >100 mg/dl (NEG-TRACE) Urine Glucose (UA) Neg mg/dL (NEG) Urine Ketones (Stick) Trace mg/dL (NEG) Urine Blood Large (NEG) Urine Nitrite Neg (NEG) Urine Bilirubin Neg (NEG) Urine Urobilinogen Dipstick 1.0 mg/dL (0.2 mg/dL) Urine Leukocyte Esterase Small (NEG) Urine RBC >40 /HPF (0-2) Urine WBC >40 /HPF (0-4) Urine Squamous Epithelial Cells Few /LPF Urine Bacteria Many /HPF (0-FEW) Current Medications: Meds: Current Medications Medications (Trade) Dose Ordered Sig/Britta Route PRN Reason Start Time Stop Time Status Last Admin Dose Admin Trazodone HCl (Desyrel) 50 mg QHS PO 02/20/20 21:00 02/20/20 20:09 I have reviewed the current psychotropics carefully including drug interactions. Risk benefit ratio favors no change other than as noted in my dictated progress note. Diagnosis: Problems: (1) Impulse control disorder, unspecified (2) Anxiety disorder, unspecified (3) Dementia, vascular, with depression (4) Dementia, vascular, with delusions (5) Dementia in Alzheimer's disease with depression (6) Dementia in Alzheimer's disease with delusions (7) Major neurocognitive disorder, due to vascular disease, with behavioral disturbance, mild KISHAN BECK MD Feb 20, 2020 22:21
--- NOTE | 2020-02-20 23:17 | NUR ---
Pt located in the dayroom this evening resting quietly in her broda chair. Pt resistant to medications crushed in pudding, requiring multiple attempts. Later in the evening, pt became tearful and restless. PRN Oxycodone administered. Will continue to monitor.
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
[2020-02-21] MEDS: LEVOTHYROXINE 25 MCG TABLET. PO SCH (05:04)
[2020-02-21] MEDS: oxyCODONE IR 5 MG TABLET PO PRN ×3 (05:53→17:29)
[2020-02-21 06:03] VITALS: BP 125/88
[2020-02-21] MEDS: metFORMIN 500 MG TABLET PO SCH ×2 (08:29→17:29)
[2020-02-21] MEDS: LISINOPRIL 10 MG TABLET PO SCH (08:30)
[2020-02-21] MEDS: QUEtiapine 25 MG TABLET. PO SCH ×2 (08:30→12:28)
[2020-02-21] MEDS: lamoTRIgine 100 MG TABLET. PO SCH (08:30)
[2020-02-21] MEDS: FAMOTIDINE 20 MG TABLET PO SCH (08:30)
[2020-02-21] MEDS: POTASSIUM CHLORIDE 20 MEQ TABLET.ER. PO SCH ×2 (08:30→20:13)
[2020-02-21] MEDS: buPROPion 100 MG TABLET PO SCH ×2 (08:30→12:28)
--- NOTE | 2020-02-21 10:39 | NUR ---
Pt is confused, disorganized, unable to verbalize wants and needs at times. Pt is restless and cries at times. She is compliant with her medication and assessment.
[2020-02-21] MEDS: LORazepam 0.5 MG TABLET PO PRN ×2 (12:28→17:29)
[2020-02-21 15:58] VITALS: BP 112/72
[2020-02-21] MEDS ORDERED: BISACODYL 10 MG SUPP.RECT PR PRN (19:45)
[2020-02-21] MEDS: ATORVASTATIN CALCIUM 20 MG TABLET PO SCH (20:12)
[2020-02-21] MEDS: DIVALPROEX 125 MG CAP.SPRINK PO SCH (20:12)
[2020-02-21] MEDS: traZODone 50 MG TABLET. PO SCH (20:12)
[2020-02-21] MEDS: MELATONIN 3 MG TABLET PO SCH (20:12)
--- NOTE | 2020-02-21 22:14 | PDOC ---
Exam Note: Gary Note: Please also refer to the separate dictated note~for this date of service dictated separately.~Patient seen individually. Discussed the patient with Nursing staff reviewed the chart.~Reviewed interim history and current functioning. Reviewed vital signs,~Labs/ Radiology~and current medications noted below. Continue current treatment with the changes noted in the dictated addendum note Assessment: Vital Signs/I&O: Vital Signs Date Time Temp Pulse Resp B/P (MAP) Pulse Ox O2 Delivery O2 Flow Rate FiO2 02/21/20 19:14 98 02/21/20 17:29 20 02/21/20 15:58 98.3 107 112/72 (85) 02/21/20 06:03 Room Air I & O 02/20/20 02/20/20 02/21/20 15:00 23:00 07:00 Intake Total 1080 ml 840 ml Output Total 250 ml 1000 ml Balance 1080 ml 590 ml -1000 ml Current Medications: I have reviewed the current psychotropics carefully including drug interactions. Risk benefit ratio favors no change other than as noted in my dictated progress note. Diagnosis: Problems: (1) Impulse control disorder, unspecified (2) Anxiety disorder, unspecified (3) Dementia, vascular, with depression (4) Dementia, vascular, with delusions (5) Dementia in Alzheimer's disease with depression (6) Dementia in Alzheimer's disease with delusions (7) Major neurocognitive disorder, due to vascular disease, with behavioral disturbance, mild KISHAN BECK MD Feb 21, 2020 22:14
--- NOTE | 2020-02-21 23:23 | NUR ---
Pt located in the dayroom this evening. Pt restless in her broda chair, tearful and yelling out at times. Compliant with crushed medications after multiple attempts.
[2020-02-22] MEDS: LEVOTHYROXINE 25 MCG TABLET. PO SCH (05:08)
[2020-02-22 06:09] VITALS: BP 84/62
[2020-02-22] MEDS: oxyCODONE IR 5 MG TABLET PO PRN (06:30)
[2020-02-22 07:24] LABS: BASO # 0.1 x10^3/uL (0.0-0.2); BASO % 1 % (0-3); EOS # 0.3 x10^3/uL (0.0-0.7); EOS % 3 % (0-3); HEMATOCRIT 46.1 % (36.0-47.0); HEMOGLOBIN 15.6 g/dL (12.0-15.5); LYMPH # 4.5 x10^3/uL (1.0-4.8); LYMPH % 44 % (24-48); MEAN CORPUSCULAR HEMOGLOBIN 31 pg (25-35); MEAN CORPUSCULAR HGB CONC 34 g/dL (31-37); MEAN CORPUSCULAR VOLUME 93 fL (79-100); MONO % 10 % (0-9); NEUT # 4.3 x10^3uL (1.8-7.7); NEUT % 42 % (31-73); PLATELET COUNT 411 x10^3/uL (140-400); RED BLOOD COUNT 4.98 x10^6/uL (3.50-5.40); RED CELL DISTRIBUTION WIDTH 14.6 % (11.5-14.5); WHITE BLOOD COUNT 10.2 x10^3/uL (4.0-11.0)
[2020-02-22 07:54] LABS: ALBUMIN 3.2 g/dL (3.4-5.0); ALBUMIN/GLOBULIN RATIO 0.8 (1.0-1.7); ALK PHOS 73 U/L (46-116); ALT (SGPT) 27 U/L (14-59); ANION GAP 12 (6-14); AST (SGOT) 19 U/L (15-37); BLOOD UREA NITROGEN 15 mg/dL (7-20); BUN/CREATININE RATIO 25 (6-20); CALCIUM 9.8 mg/dL (8.5-10.1); CARBON DIOXIDE 21 mmol/L (21-32); CHLORIDE 104 mmol/L (98-107); CREATININE 0.6 mg/dL (0.6-1.0); GFR 101.3; GLUCOSE 108 mg/dL (70-99); POTASSIUM 4.4 mmol/L (3.5-5.1); SODIUM 137 mmol/L (136-145); TOTAL BILIRUBIN 0.4 mg/dL (0.2-1.0); TOTAL PROTEIN 7.3 g/dL (6.4-8.2)
[2020-02-22 08:14] LABS: VAL ACID 16 mcg/mL (50-100)
[2020-02-22] MEDS: metFORMIN 500 MG TABLET PO SCH ×2 (08:34→17:29)
[2020-02-22] MEDS: FAMOTIDINE 20 MG TABLET PO SCH (08:34)
[2020-02-22] MEDS: POTASSIUM CHLORIDE 20 MEQ TABLET.ER. PO SCH ×2 (08:34→20:06)
[2020-02-22] MEDS: ACETAMINOPHEN 325 MG TABLET PO PRN (08:34)
[2020-02-22] MEDS: buPROPion 100 MG TABLET PO SCH ×2 (08:45→13:22)
[2020-02-22] MEDS: QUEtiapine 25 MG TABLET. PO SCH ×2 (08:45→13:22)
[2020-02-22 08:46] VITALS: BP 122/70
[2020-02-22] MEDS: LISINOPRIL 10 MG TABLET PO SCH ×2 (08:47→09:00)
--- NOTE | 2020-02-22 10:33 | NUR ---
Pt is confused, disorganized, unable to verbalize wants and needs at times. She is compliant with her medication and assessment. Pt is restless and cries at times.
--- NOTE | 2020-02-22 10:34 | NUR ---
Dr Salinas here for rounds and saw the pt. Reviewed labs. New order for keflex 500mg po TID x 5 days.
[2020-02-22] MEDS: CEPHALEXIN 250 MG/5 ML ORAL.SUSP. PO SCH ×2 (13:22→20:08)
--- NOTE | 2020-02-22 13:23 | PN ---
DATE: 02/20/2020 PSYCHIATRIC PROGRESS NOTE This late entry 02/20/2020 covers elements not covered in my initial note. SUBJECTIVE: I met with the patient evening of 02/20/2020. Per TRA Andrews, the patient slept 3-3/4 hours previous night. Labs from the day before BUN 15, creatinine 0.7. Appetite 50%. We will check a UA, make sure she does not have a UTI. She had no behaviors previous night. She was restless and tearful in the morning with lab draw, was in pain, received oxycodone then was calmer. REVIEW OF SYSTEMS: Ambulation impaired. No CV, , pulmonary, eye, ENT system symptoms on review. Reliability poor. MENTAL STATUS EXAM: Oriented to herself. Insight, judgment, recent and remote memory, attention, concentration, fund of knowledge poor, consistent with her diagnoses. IMPRESSION: Major neurocognitive disorder, Alzheimer, vascular with delusion, depression, behavioral disturbance; bipolar 1 disorder, mixed; anxiety disorder, unspecified; impulse control disorder, unspecified. PLAN: Given her insomnia, we will start trazodone 50 mg at bedtime, may repeat x 1 for insomnia. Maintain Depakote, which was initiated. We will stop the Lamictal in due course as the Depakote is adjusted. Continue melatonin, Seroquel, Wellbutrin for now. MAN Zenobia BECK MD DR: WILLIAM/kitty JOB#: [id number] / [id number]
--- NOTE | 2020-02-22 14:59 | NUR ---
Pt's mac line flushed with 100cc NS and stat lock replaced. Pt tolerated well.
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
[2020-02-22 16:59] VITALS: BP 101/70
[2020-02-22] MEDS: MELATONIN 3 MG TABLET PO SCH (20:06)
[2020-02-22] MEDS: traZODone 50 MG TABLET. PO SCH (20:06)
[2020-02-22] MEDS: DIVALPROEX 125 MG CAP.SPRINK PO SCH (20:08)
[2020-02-22] MEDS: ATORVASTATIN CALCIUM 20 MG TABLET PO SCH (20:08)
--- NOTE | 2020-02-22 22:22 | PDOC ---
Exam Note: Gary Note: Please also refer to the separate dictated note~for this date of service dictated separately.~Patient seen individually. Discussed the patient with Nursing staff reviewed the chart.~Reviewed interim history and current functioning. Reviewed vital signs,~Labs/ Radiology~and current medications noted below. Continue current treatment with the changes noted in the dictated addendum note Assessment: Vital Signs/I&O: Vital Signs Date Time Temp Pulse Resp B/P (MAP) Pulse Ox O2 Delivery O2 Flow Rate FiO2 02/22/20 16:59 97.4 98 16 101/70 (80) 97 02/22/20 06:09 Room Air I & O 02/21/20 02/21/20 02/22/20 14:59 22:59 06:59 Intake Total 840 ml 240 ml Output Total 300 ml 300 ml Balance 840 ml -60 ml -300 ml Labs: Laboratory Tests Test 02/22/20 06:38 White Blood Count 10.2 x10^3/uL (4.0-11.0) Red Blood Count 4.98 x10^6/uL (3.50-5.40) Hemoglobin 15.6 g/dL (12.0-15.5) H Hematocrit 46.1 % (36.0-47.0) Mean Corpuscular Volume 93 fL (79-100) Mean Corpuscular Hemoglobin 31 pg (25-35) Mean Corpuscular Hemoglobin Concent 34 g/dL (31-37) Red Cell Distribution Width 14.6 % (11.5-14.5) H Platelet Count 411 x10^3/uL (140-400) H Neutrophils (%) (Auto) 42 % (31-73) Lymphocytes (%) (Auto) 44 % (24-48) Monocytes (%) (Auto) 10 % (0-9) H Eosinophils (%) (Auto) 3 % (0-3) Basophils (%) (Auto) 1 % (0-3) Neutrophils # (Auto) 4.3 x10^3uL (1.8-7.7) Lymphocytes # (Auto) 4.5 x10^3/uL (1.0-4.8) Monocytes # (Auto) 1.0 x10^3/uL (0.0-1.1) Eosinophils # (Auto) 0.3 x10^3/uL (0.0-0.7) Basophils # (Auto) 0.1 x10^3/uL (0.0-0.2) Sodium Level 137 mmol/L (136-145) Potassium Level 4.4 mmol/L (3.5-5.1) Chloride Level 104 mmol/L (98-107) Carbon Dioxide Level 21 mmol/L (21-32) Anion Gap 12 (6-14) Blood Urea Nitrogen 15 mg/dL (7-20) Creatinine 0.6 mg/dL (0.6-1.0) Estimated GFR (Cockcroft-Gault) 101.3 BUN/Creatinine Ratio 25 (6-20) H Glucose Level 108 mg/dL (70-99) H Calcium Level 9.8 mg/dL (8.5-10.1) Total Bilirubin 0.4 mg/dL (0.2-1.0) Aspartate Amino Transferase (AST) 19 U/L (15-37) Alanine Aminotransferase (ALT) 27 U/L (14-59) Alkaline Phosphatase 73 U/L (46-116) Total Protein 7.3 g/dL (6.4-8.2) Albumin 3.2 g/dL (3.4-5.0) L Albumin/Globulin Ratio 0.8 (1.0-1.7) L Valproic Acid Level 16 mcg/mL (50-100) L Valproic Acid Last Dose Date 02/21/20 Valproic Acid Last Dose Time 2100 Current Medications: Meds: Current Medications Medications (Trade) Dose Ordered Sig/Britta Route PRN Reason Start Time Stop Time Status Last Admin Dose Admin Cephalexin HCl (Keflex Oral Susp) 500 mg TID PO 02/22/20 14:00 02/27/20 13:59 02/22/20 20:08 Divalproex Sodium (Depakote Sprinkles) 500 mg HS PO 02/22/20 21:00 02/22/20 20:08 I have reviewed the current psychotropics carefully including drug interactions. Risk benefit ratio favors no change other than as noted in my dictated progress note. Diagnosis: Problems: (1) Impulse control disorder, unspecified (2) Anxiety disorder, unspecified (3) Dementia, vascular, with depression (4) Dementia, vascular, with delusions (5) Dementia in Alzheimer's disease with depression (6) Dementia in Alzheimer's disease with delusions (7) Major neurocognitive disorder, due to vascular disease, with behavioral disturbance, mild KISHAN BECK MD Feb 22, 2020 22:22
--- NOTE | 2020-02-22 22:31 | NUR ---
Pt located in her room, restless in bed. Compliant with crushed medications and liquid Keflex. Pt continues to cry out at times.
[2020-02-23] MEDS: LEVOTHYROXINE 25 MCG TABLET. PO SCH (05:17)
[2020-02-23 06:02] VITALS: BP 112/78
[2020-02-23] MEDS: LISINOPRIL 10 MG TABLET PO SCH (09:00)
[2020-02-23] MEDS: metFORMIN 500 MG TABLET PO SCH ×2 (09:18→17:34)
[2020-02-23] MEDS: FAMOTIDINE 20 MG TABLET PO SCH (09:18)
[2020-02-23] MEDS: POTASSIUM CHLORIDE 20 MEQ TABLET.ER. PO SCH ×2 (09:18→20:20)
[2020-02-23] MEDS: buPROPion 100 MG TABLET PO SCH ×2 (09:20→12:26)
[2020-02-23] MEDS: CEPHALEXIN 250 MG/5 ML ORAL.SUSP. PO SCH ×3 (09:20→20:21)
[2020-02-23] MEDS: QUEtiapine 25 MG TABLET. PO SCH ×2 (09:20→12:26)
--- NOTE | 2020-02-23 10:20 | NUR ---
Pt is restless and cries at times. Pt is confused, disorganized, unable to verbalize wants and needs at times. She is compliant with her medication and assessment.
[2020-02-23] MEDS: oxyCODONE IR 5 MG TABLET PO PRN (11:17)
--- NOTE | 2020-02-23 13:30 | NUR ---
ODALYS received call from Asia, pt dtr, to discuss how pt is doing and to also talk about setting up a video conference for pt to see family. That video conference will happen around 1300 on . Asia then brought up a weekend report on how a staff member here knows her mother. Pt dtr has asked for specific time frames to see if she is able to put pieces together with pt history. ODALYS will ask and let Asia know on before having the pt join on the video call.
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
[2020-02-23 16:12] VITALS: BP 127/85
[2020-02-23] MEDS: traZODone 50 MG TABLET. PO SCH (20:17)
[2020-02-23] MEDS: MELATONIN 3 MG TABLET PO SCH (20:17)
[2020-02-23] MEDS: DIVALPROEX 125 MG CAP.SPRINK PO SCH (20:17)
[2020-02-23] MEDS: ATORVASTATIN CALCIUM 20 MG TABLET PO SCH (20:20)
--- NOTE | 2020-02-23 22:22 | PDOC ---
Exam Note: Gary Note: Please also refer to the separate dictated note~for this date of service dictated separately.~Patient seen individually. Discussed the patient with Nursing staff reviewed the chart.~Reviewed interim history and current functioning. Reviewed vital signs,~Labs/ Radiology~and current medications noted below. Continue current treatment with the changes noted in the dictated addendum note Assessment: Vital Signs/I&O: Vital Signs Date Time Temp Pulse Resp B/P (MAP) Pulse Ox O2 Delivery O2 Flow Rate FiO2 02/23/20 16:12 97.3 61 18 127/85 (99) 99 02/22/20 06:09 Room Air I & O 02/22/20 02/22/20 02/23/20 15:00 23:00 07:00 Intake Total 240 ml 600 ml Output Total 300 ml Balance 240 ml 600 ml -300 ml Current Medications: I have reviewed the current psychotropics carefully including drug interactions. Risk benefit ratio favors no change other than as noted in my dictated progress note. Diagnosis: Problems: (1) Impulse control disorder, unspecified (2) Anxiety disorder, unspecified (3) Dementia, vascular, with depression (4) Dementia, vascular, with delusions (5) Dementia in Alzheimer's disease with depression (6) Dementia in Alzheimer's disease with delusions (7) Major neurocognitive disorder, due to vascular disease, with behavioral disturbance, mild KISHAN BECK MD Feb 23, 2020 22:22
--- NOTE | 2020-02-23 22:29 | NUR ---
Pt located in her room, awake in bed. Pt continues to be restless and tearful. Compliant with crushed medications.
[2020-02-24] MEDS: LEVOTHYROXINE 25 MCG TABLET. PO SCH (05:31)
[2020-02-24 06:34] VITALS: BP 124/88
--- NOTE | 2020-02-24 07:30 | NUR ---
wound care patient seen per wound care consult. patient has a scab on the right 2nd toe, no open area noted at this time. skin prep applied to the area. wound care is signing off at this time, please re-consult wound care if the integumentary assessment changes. notified RN about the POC.
[2020-02-24] MEDS: FAMOTIDINE 20 MG TABLET PO SCH (08:08)
[2020-02-24] MEDS: CEPHALEXIN 250 MG/5 ML ORAL.SUSP. PO SCH ×3 (08:08→21:00)
[2020-02-24] MEDS: metFORMIN 500 MG TABLET PO SCH ×2 (08:08→16:59)
[2020-02-24] MEDS: QUEtiapine 25 MG TABLET. PO SCH ×2 (08:09→12:43)
[2020-02-24] MEDS: LISINOPRIL 10 MG TABLET PO SCH (08:09)
[2020-02-24] MEDS: buPROPion 100 MG TABLET PO SCH ×2 (08:09→12:43)
[2020-02-24] MEDS: POTASSIUM CHLORIDE 20 MEQ TABLET.ER. PO SCH ×2 (08:09→20:32)
--- NOTE | 2020-02-24 10:10 | NUR ---
Patient in dining room in a broda wheelchair. She does not answer orientation questions but does respond to her name. Staff is unsureif patient can't answer questions or is just refusing. Staff was assisting patient to eat by feeding her. Patient compliant with medications given crushed in apple sauce. Potassium was dissolved in juice. Patient spends her day in dayroom watching tv or sleeping. Patient is currently on antibiotics for UTI. Patient in Broda chair for safety and Nina lift is used for transferring. Patient does not appear to be in pain, she is restless but not aggressive.
[2020-02-24 15:47] VITALS: BP 101/68
[2020-02-24] MEDS: ATORVASTATIN CALCIUM 20 MG TABLET PO SCH (20:32)
[2020-02-24] MEDS: traZODone 50 MG TABLET. PO SCH (20:33)
[2020-02-24] MEDS: MELATONIN 3 MG TABLET PO SCH (20:33)
[2020-02-24] MEDS: DIVALPROEX 125 MG CAP.SPRINK PO SCH (20:33)
[2020-02-24] MEDS: oxyCODONE IR 5 MG TABLET PO PRN (20:34)
--- NOTE | 2020-02-24 22:15 | PN ---
DATE: 02/23/2020 PSYCHIATRIC PROGRESS NOTE This late entry of 02/23/2020 covers the elements not covered in my initial note. SUBJECTIVE: Per Freda RN, the patient slept 7-3/4 hours previous night. She remains confused, withdrawn with some mood lability, crying spells, but the latter are better. REVIEW OF SYSTEMS: Ambulation impaired, in Broda chair. No CV, , pulmonary, eye, ENT system symptoms on review. Reliability poor. MENTAL STATUS EXAM: Oriented to herself. Insight, judgment, recent and remote memory, attention, concentration, fund of knowledge poor, consistent with her diagnosis mentioned in my initial note. PLAN: No change from initial note. KISHAN BECK MD DR: WILLIAM/kitty JOB#: [id number] / [id number]
--- NOTE | 2020-02-24 22:16 | PN ---
DATE: 02/22/2020 This late entry of 02/21 covers elements not covered in my initial note. SUBJECTIVE: I met with the patient on the evening of 02/21. Per Freda RN, the patient slept 7 hours the previous night. She has been somewhat sedated. UA is positive and she is being started on Keflex 500 mg t.i.d. for 5 days, Proteus positive. REVIEW OF SYSTEMS: Ambulation impaired, in Broda chair. No CV, , pulmonary, eye, ENT system symptoms on review. Reliability poor. MENTAL STATUS EXAMINATION: Oriented to herself. Insight, judgment, recent and remote memory, attention, concentration, fund of knowledge poor; consistent with her diagnosis mentioned in my initial note. PLAN: Valproic acid level subtherapeutic. She is currently on Depakote 250 mg at bedtime, we will increase to 500 mg p.o. at bedtime. Check CBC, CMP, valproic acid level in 3 days. Heart rate varies up to 117 per minute; we will defer to Dr. Salinas/Dr. Hedrick for medical management. Rest unchanged from initial note. MAN Zenobia BECK MD DR: WILLIAM/kitty JOB#: [id number] / [id number]
--- NOTE | 2020-02-24 22:19 | PDOC ---
Exam Note: Gary Note: Please also refer to the separate dictated note~for this date of service dictated separately.~Patient seen individually. Discussed the patient with Nursing staff reviewed the chart.~Reviewed interim history and current functioning. Reviewed vital signs,~Labs/ Radiology~and current medications noted below. Continue current treatment with the changes noted in the dictated addendum note Assessment: Vital Signs/I&O: Vital Signs Date Time Temp Pulse Resp B/P (MAP) Pulse Ox O2 Delivery O2 Flow Rate FiO2 02/24/20 21:48 94 Room Air 02/24/20 20:34 20 02/24/20 15:47 97.5 114 101/68 (79) I & O 02/23/20 02/23/20 02/24/20 15:00 23:00 07:00 Intake Total 900 ml 360 ml 100 ml Output Total 300 ml 350 ml Balance 900 ml 60 ml -250 ml Current Medications: I have reviewed the current psychotropics carefully including drug interactions. Risk benefit ratio favors no change other than as noted in my dictated progress note. Diagnosis: Problems: (1) Impulse control disorder, unspecified (2) Anxiety disorder, unspecified (3) Dementia, vascular, with depression (4) Dementia, vascular, with delusions (5) Dementia in Alzheimer's disease with depression (6) Dementia in Alzheimer's disease with delusions (7) Major neurocognitive disorder, due to vascular disease, with behavioral disturbance, mild KISHAN BECK MD Feb 24, 2020 22:19
--- NOTE | 2020-02-24 23:56 | NUR ---
Pt. was sitting up in [facility] at time of assessment pt. moaning unable to answer any orientation questions pt. nodded yes when asked if she was in pain. pt. given PRN Oxycodone along with scheduled HS meds crushed in one bite of chocolate pudding requiring some coaxing. pt. assisted X2 to bed using lift now resting comfortably TRA Ybarra
[2020-02-25] MEDS: LEVOTHYROXINE 25 MCG TABLET. PO SCH (05:55)
[2020-02-25 06:04] VITALS: BP 144/72
--- NOTE | 2020-02-25 06:14 | NUR ---
While techs were performing morning cares, mac noted to be torn and leaking. This nurse accompanied by TRA Huang, replaced catheter using sterile technique. Pt. tolerated fair. TRA Ybarra
[2020-02-25 06:30] LABS: BASO % 1 % (0-3); EOS # 0.2 x10^3/uL (0.0-0.7); EOS % 3 % (0-3); HEMATOCRIT 42.6 % (36.0-47.0); HEMOGLOBIN 14.6 g/dL (12.0-15.5); LYMPH # 2.6 x10^3/uL (1.0-4.8); LYMPH % 36 % (24-48); MEAN CORPUSCULAR HEMOGLOBIN 32 pg (25-35); MEAN CORPUSCULAR HGB CONC 34 g/dL (31-37); MEAN CORPUSCULAR VOLUME 92 fL (79-100); MONO # 0.8 x10^3/uL (0.0-1.1); MONO % 11 % (0-9); NEUT # 3.5 x10^3uL (1.8-7.7); NEUT % 49 % (31-73); PLATELET COUNT 335 x10^3/uL (140-400); RED BLOOD COUNT 4.63 x10^6/uL (3.50-5.40); RED CELL DISTRIBUTION WIDTH 14.3 % (11.5-14.5); WHITE BLOOD COUNT 7.2 x10^3/uL (4.0-11.0)
[2020-02-25 06:54] LABS: ALBUMIN 2.9 g/dL (3.4-5.0); ALBUMIN/GLOBULIN RATIO 0.7 (1.0-1.7); ALK PHOS 67 U/L (46-116); ALT (SGPT) 24 U/L (14-59); ANION GAP 11 (6-14); AST (SGOT) 18 U/L (15-37); BLOOD UREA NITROGEN 7 mg/dL (7-20); BUN/CREATININE RATIO 14 (6-20); CALCIUM 9.2 mg/dL (8.5-10.1); CARBON DIOXIDE 22 mmol/L (21-32); CHLORIDE 103 mmol/L (98-107); CREATININE 0.5 mg/dL (0.6-1.0); GLUCOSE 99 mg/dL (70-99); POTASSIUM 3.6 mmol/L (3.5-5.1); SODIUM 136 mmol/L (136-145); TOTAL BILIRUBIN 0.3 mg/dL (0.2-1.0); TOTAL PROTEIN 6.9 g/dL (6.4-8.2); VAL ACID 29 mcg/mL (50-100)
--- NOTE | 2020-02-25 08:17 | NUR ---
Patient only slept 5.25 hours last night. Patient sleeping soundly at this time. Will save breakfast tray and awaken patient at 1000.
[2020-02-25] MEDS: LISINOPRIL 10 MG TABLET PO SCH (10:04)
[2020-02-25] MEDS: QUEtiapine 25 MG TABLET. PO SCH ×2 (10:04→13:28)
[2020-02-25] MEDS: buPROPion 100 MG TABLET PO SCH ×2 (10:04→13:28)
[2020-02-25] MEDS: POTASSIUM CHLORIDE 20 MEQ TABLET.ER. PO SCH ×2 (10:05→21:00)
[2020-02-25] MEDS: FAMOTIDINE 20 MG TABLET PO SCH (10:05)
[2020-02-25] MEDS: metFORMIN 500 MG TABLET PO SCH ×2 (10:06→17:27)
[2020-02-25] MEDS: oxyCODONE IR 5 MG TABLET PO PRN ×2 (10:08→17:27)
[2020-02-25] MEDS: CEPHALEXIN 250 MG/5 ML ORAL.SUSP. PO SCH ×3 (10:14→21:00)
--- NOTE | 2020-02-25 10:50 | NUR ---
Patient got up at 1000. Patient in day room in Broda chair, semi-reclined. Patient has tear filled eyes and is making small whimpering sounds. Patient unable to report pain but shook her head yes when nurse asked if she was having pain. PRN oxycodone given at 1008 with morning. meds. Patient compliant with medications given crushed in chocolate pudding. Potassium dissolved. Patient continues on antibiotic for UTI. Patient continues to have mac for urinary retention. Patient is calm, no aggression or agitation noted at this time.
[2020-02-25 15:42] VITALS: BP 134/84
--- NOTE | 2020-02-25 17:25 | NUR ---
Patient observed to be crying in hallway. Patient told a nurse that she had pain in her right side. Patient had been napping in bed prior to that and had just been brought to the dining room. PRN oxycodone provided for pain per order. Will continue to monitor.
--- NOTE | 2020-02-25 17:49 | NUR ---
Patient remains tearful and is mumbling words staff cannot understand. When nurse asks patient what is the matter, patient is unable to express herself and continues to cry. Multiple staff members have attempted to find out what is bothering her but patient is either unable or unwilling to talk. Patient appears to be in distress and is saying "no, no, no" while crying.
[2020-02-25] MEDS: DIVALPROEX 125 MG CAP.SPRINK PO SCH (21:00)
[2020-02-25] MEDS: traZODone 50 MG TABLET. PO SCH (21:00)
[2020-02-25] MEDS: MELATONIN 3 MG TABLET PO SCH (21:00)
[2020-02-25] MEDS: ATORVASTATIN CALCIUM 20 MG TABLET PO SCH (21:00)
--- NOTE | 2020-02-25 22:31 | PDOC ---
Exam Note: Gary Note: Please also refer to the separate dictated note~for this date of service dictated separately.~Patient seen individually. Discussed the patient with Nursing staff reviewed the chart.~Reviewed interim history and current functioning. Reviewed vital signs,~Labs/ Radiology~and current medications noted below. Continue current treatment with the changes noted in the dictated addendum note Assessment: Vital Signs/I&O: Vital Signs Date Time Temp Pulse Resp B/P (MAP) Pulse Ox O2 Delivery O2 Flow Rate FiO2 02/25/20 18:43 17 98 02/25/20 17:27 Room Air 02/25/20 15:42 97.8 63 134/84 (101) I & O 02/24/20 02/24/20 02/25/20 15:00 23:00 07:00 Intake Total 1200 ml 840 ml Output Total 500 ml Balance 1200 ml 340 ml Labs: Laboratory Tests Test 02/25/20 05:50 White Blood Count 7.2 x10^3/uL (4.0-11.0) Red Blood Count 4.63 x10^6/uL (3.50-5.40) Hemoglobin 14.6 g/dL (12.0-15.5) Hematocrit 42.6 % (36.0-47.0) Mean Corpuscular Volume 92 fL (79-100) Mean Corpuscular Hemoglobin 32 pg (25-35) Mean Corpuscular Hemoglobin Concent 34 g/dL (31-37) Red Cell Distribution Width 14.3 % (11.5-14.5) Platelet Count 335 x10^3/uL (140-400) Neutrophils (%) (Auto) 49 % (31-73) Lymphocytes (%) (Auto) 36 % (24-48) Monocytes (%) (Auto) 11 % (0-9) H Eosinophils (%) (Auto) 3 % (0-3) Basophils (%) (Auto) 1 % (0-3) Neutrophils # (Auto) 3.5 x10^3uL (1.8-7.7) Lymphocytes # (Auto) 2.6 x10^3/uL (1.0-4.8) Monocytes # (Auto) 0.8 x10^3/uL (0.0-1.1) Eosinophils # (Auto) 0.2 x10^3/uL (0.0-0.7) Basophils # (Auto) 0.0 x10^3/uL (0.0-0.2) Sodium Level 136 mmol/L (136-145) Potassium Level 3.6 mmol/L (3.5-5.1) Chloride Level 103 mmol/L (98-107) Carbon Dioxide Level 22 mmol/L (21-32) Anion Gap 11 (6-14) Blood Urea Nitrogen 7 mg/dL (7-20) Creatinine 0.5 mg/dL (0.6-1.0) L Estimated GFR (Cockcroft-Gault) 125.0 BUN/Creatinine Ratio 14 (6-20) Glucose Level 99 mg/dL (70-99) Calcium Level 9.2 mg/dL (8.5-10.1) Total Bilirubin 0.3 mg/dL (0.2-1.0) Aspartate Amino Transferase (AST) 18 U/L (15-37) Alanine Aminotransferase (ALT) 24 U/L (14-59) Alkaline Phosphatase 67 U/L (46-116) Total Protein 6.9 g/dL (6.4-8.2) Albumin 2.9 g/dL (3.4-5.0) L Albumin/Globulin Ratio 0.7 (1.0-1.7) L Valproic Acid Level 29 mcg/mL (50-100) L Valproic Acid Last Dose Date 02/24/2020 Valproic Acid Last Dose Time 2100 Current Medications: I have reviewed the current psychotropics carefully including drug interactions. Risk benefit ratio favors no change other than as noted in my dictated progress note. Diagnosis: Problems: (1) Impulse control disorder, unspecified (2) Anxiety disorder, unspecified (3) Dementia, vascular, with depression (4) Dementia, vascular, with delusions (5) Dementia in Alzheimer's disease with depression (6) Dementia in Alzheimer's disease with delusions (7) Major neurocognitive disorder, due to vascular disease, with behavioral disturbance, mild KISHAN BECK MD Feb 25, 2020 22:31
[2020-02-26 03:53] VITALS: BP 118/69
[2020-02-26] MEDS: oxyCODONE IR 5 MG TABLET PO PRN ×2 (05:55→15:24)
[2020-02-26] MEDS: LEVOTHYROXINE 25 MCG TABLET. PO SCH (05:55)
--- NOTE | 2020-02-26 05:58 | NUR ---
Pt has been in her bed until this morning, she slept off and on through the night. When awake she has not answered questions and is tearful at times. Th morning she is wimpering and appears in pain but will not indicate where. PRN oxycodone given
--- NOTE | 2020-02-26 08:55 | PDOC ---
Exam Note: Gary Note: This note is a late entry for 02/24/2020 covers elements not covered in my initial note. Subjective: The patient was seen face to face in the evening of 02/24/2020. Per Yoana DUTTA, she slept 6 hours previous night. She has been crying, restless, resistive to medications. She has had some diarrhea. We will hold the suppository. Platelet count was 411, trending upwards. Review of Systems: Ambulation impaired in bed. No CV, , pulmonary, eye, ENT system symptoms on review. Mental Status Exam: Oriented to herself. Insight and judgment, recent and remote memory, attention and concentration, fund of knowledge is poor consistent with her diagnoses. Laboratory Data: Reviewed. Impression: Major neurocognitive disorder, Alzheimer, vascular with delusions, depression and behavioral disturbance. Anxiety disorder unspecified. Impulse control disorder unspecified. Plan: No change from initial note. Assessment: Vital Signs/I&O: Vital Signs Date Time Temp Pulse Resp B/P (MAP) Pulse Ox O2 Delivery O2 Flow Rate FiO2 02/26/20 08:36 17 Room Air 02/26/20 03:53 97.4 96 118/69 (85) 99 I & O 02/25/20 02/25/20 02/26/20 15:00 23:00 07:00 Intake Total 360 ml 480 ml Balance 360 ml 480 ml Current Medications: Meds: Current Medications Medications (Trade) Dose Ordered Sig/Britta Route PRN Reason Start Time Stop Time Status Last Admin Dose Admin Divalproex Sodium (Depakote Sprinkles) 500 mg BID PO 02/25/20 21:00 02/25/20 21:00 I have reviewed the current psychotropics carefully including drug interactions. Risk benefit ratio favors no change other than as noted in my dictated progress note. Diagnosis: Problems: (1) Impulse control disorder, unspecified (2) Anxiety disorder, unspecified (3) Dementia, vascular, with depression (4) Dementia, vascular, with delusions (5) Dementia in Alzheimer's disease with depression (6) Dementia in Alzheimer's disease with delusions (7) Major neurocognitive disorder, due to vascular disease, with behavioral disturbance, mild KISHAN BECK MD Feb 26, 2020 08:55
--- NOTE | 2020-02-26 09:20 | PDOC ---
Exam Note: Gary Note: This note is a late entry for 02/25/2020 covers elements not covered in my initial note. Subjective: The patient was seen face to face in the evening of 02/25/2020. Per Yoana DUTTA, she slept 5-1/4 hours previous night. She has been whispering and whimpering under her breath. Review of Systems: Ambulation impaired. No CV, , pulmonary, eye, ENT system symptoms on review. Mental Status Exam: Oriented to herself. Insight and judgment, recent and remote memory, attention and concentration, fund of knowledge is poor consistent with her diagnoses. Laboratory Data: Reviewed. Valproic acid level is 29. CBC and CMP unremarkable. Creatinine is 0.5. Rest unremarkable. Impression: Major neurocognitive disorder, Alzheimer, vascular with delusions, depression and behavioral disturbance. Anxiety disorder unspecified. Impulse control disorder unspecified. Plan: Valproic acid level is subtherapeutic at 29 on Depakote Sprinkle 500 mg h.s. We will increase to 500 mg twice a day. Check, CBC, CMP, valproic acid level, ammonia level in 3 days. Rest unchanged for now. Assessment: Vital Signs/I&O: Vital Signs Date Time Temp Pulse Resp B/P (MAP) Pulse Ox O2 Delivery O2 Flow Rate FiO2 02/26/20 08:36 17 Room Air 02/26/20 03:53 97.4 96 118/69 (85) 99 I & O 02/25/20 02/25/20 02/26/20 14:59 22:59 06:59 Intake Total 360 ml 480 ml Balance 360 ml 480 ml Current Medications: Meds: Current Medications Medications (Trade) Dose Ordered Sig/Britta Route PRN Reason Start Time Stop Time Status Last Admin Dose Admin Divalproex Sodium (Depakote Sprinkles) 500 mg BID PO 02/25/20 21:00 02/25/20 21:00 I have reviewed the current psychotropics carefully including drug interactions. Risk benefit ratio favors no change other than as noted in my dictated progress note. Diagnosis: Problems: (1) Impulse control disorder, unspecified (2) Anxiety disorder, unspecified (3) Dementia, vascular, with depression (4) Dementia, vascular, with delusions (5) Dementia in Alzheimer's disease with depression (6) Dementia in Alzheimer's disease with delusions (7) Major neurocognitive disorder, due to vascular disease, with behavioral disturbance, mild KISHAN BECK MD Feb 26, 2020 09:20
--- NOTE | 2020-02-26 09:38 | NUR ---
WEEKLY ACTIVITY THERAPY NOTE Date of Admission: 02/11/20 Date of AT Assessment: 02/14/20 Precipitating behaviors that initiated intake and admission: Patient was reportedly for agitation, aggression, scared, unable to settle, skin picking, and had six falls in a 24hour period. Goal aimed: to increase recreation education and socialization Initial Goal: Pt will engage In at least three individual/group activity therapy sessions per week Weekly progress towards goal: did not achieve Group participation level: zero Weekly highlights: Behaviors observed: restless and tearful most of the time Plan: change goal to: Pt. will participate in at least one individual/group activity therapy session before discharge Beneficial adaptations: sensory stimulation possibly
[2020-02-26] MEDS: metFORMIN 500 MG TABLET PO SCH ×2 (11:04→17:17)
[2020-02-26] MEDS: CEPHALEXIN 250 MG/5 ML ORAL.SUSP. PO SCH ×3 (11:07→20:13)
[2020-02-26] MEDS: buPROPion 100 MG TABLET PO SCH ×2 (11:08→15:24)
[2020-02-26] MEDS: CHOLECALCIFEROL (VITAMIN D3) 50,000 UNIT CAPSULE PO SCH (11:08)
[2020-02-26] MEDS: DIVALPROEX 125 MG CAP.SPRINK PO SCH ×2 (11:08→20:11)
[2020-02-26] MEDS: QUEtiapine 25 MG TABLET. PO SCH ×2 (11:09→15:25)
[2020-02-26] MEDS: FAMOTIDINE 20 MG TABLET PO SCH (11:10)
[2020-02-26] MEDS: POTASSIUM CHLORIDE 20 MEQ TABLET.ER. PO SCH ×2 (11:10→20:12)
[2020-02-26] MEDS: LISINOPRIL 10 MG TABLET PO SCH (11:10)
[2020-02-26] MEDS: LORazepam 0.5 MG TABLET PO PRN ×2 (11:16→20:14)
--- NOTE | 2020-02-26 11:48 | NUR ---
TRA and Frank with SW spoke with john. Per john, prior to patients admittance to [facility] in November, pt was able to make needs known and was walking with a walker. When she returned from [facility] in December, pt was bed bound, tearful, not communicating- the same issues we are seeing here. John unsure of what caused dramatic change with patient while at [facility]. Will reach out to daughter about requesting records from [facility]. LAWSON
--- NOTE | 2020-02-26 13:50 | NUR ---
ODALYS did a Zoom meeting with pt and her dtr. Pt dtr talked to pt in saying frances, that she loved her and asked her to make sure she eats. Pt smiled and appeared to want to talk but could not find her words. SW informed pt dtr that she refused lunch and barely opened her mouth to take her medications. Pt dtr was informed about treatment team and would make sure to let her know about the hospitalist goals for labs.
--- NOTE | 2020-02-26 14:13 | NUR ---
Patient did not eat at breakfast, she drank 2 ensures at lunch. For morning medications patient only took one bite of pudding with meds in it and then refused to eat the rest of the pudding. She spit out half of the liquid antibiotics. Patient continues to cry and make "whimpering" sounds. She is unable to even gesture to anything that is painful to her. She does not seem to get relief from xanax or oxycodone. Patient does appear to have some tenderness on left flank area. Will advise dr babb on rounds.
--- NOTE | 2020-02-26 14:46 | NUR ---
Patient had been napping after lunch and then talking with medical social consultant and paitients daughter on speaker phone. PRN oxycodone given for pain. Patient is moaning and grimacing. This nurse is going to have male nurse give medications and see if she will be less resistive with him.
[2020-02-26 15:48] VITALS: BP 104/63
--- NOTE | 2020-02-26 18:11 | NUR ---
Dr. Hedrick evaluated patients L sided pain. Patient was laying on right side with her hand inside her brief when this nurse and doctor entered ther room. Patient did not communicate with Dr or nurse. Dr Hedrick ordered CRP, CMP AND HEMOGRAM to see if they indicate anything out of the ordinary. Patient has had multiple xrays and CT scans done this visit r/t her history of falls before arrival. He stated that the sediment in the urine was probably because she doesn't move around much and stays in one position.
[2020-02-26] MEDS: ATORVASTATIN CALCIUM 20 MG TABLET PO SCH (20:12)
[2020-02-26] MEDS: traZODone 50 MG TABLET. PO SCH (20:12)
[2020-02-26] MEDS: MELATONIN 3 MG TABLET PO SCH (20:13)
--- NOTE | 2020-02-26 22:27 | NUR ---
Pt lying in bed with eyes open at shift change. Pt anxious, tearful, and disorganized when approached. Pt cooperative with assessment and compliant with medications administered crushed in applesauce. PRN Ativan administered with HS medications for anxiety.
--- NOTE | 2020-02-26 23:01 | PDOC ---
Exam Note: Gary Note: Please also refer to the separate dictated note~for this date of service dictated separately.~Patient seen individually. Discussed the patient with Nursing staff reviewed the chart.~Reviewed interim history and current functioning. Reviewed vital signs,~Labs/ Radiology~and current medications noted below. Continue current treatment with the changes noted in the dictated addendum note Assessment: Vital Signs/I&O: Vital Signs Date Time Temp Pulse Resp B/P (MAP) Pulse Ox O2 Delivery O2 Flow Rate FiO2 02/26/20 16:53 16 98 Room Air 02/26/20 15:48 98.6 100 104/63 (77) I & O 02/25/20 02/25/20 02/26/20 15:00 23:00 07:00 Intake Total 360 ml 480 ml Balance 360 ml 480 ml Current Medications: I have reviewed the current psychotropics carefully including drug interactions. Risk benefit ratio favors no change other than as noted in my dictated progress note. Diagnosis: Problems: (1) Bipolar disorder with psychotic features (2) Dementia, vascular, with depression (3) Dementia, vascular, with delusions (4) Dementia in Alzheimer's disease with depression (5) Dementia in Alzheimer's disease with delusions (6) Major neurocognitive disorder, due to vascular disease, with behavioral disturbance, mild KISHAN BECK MD Feb 26, 2020 23:01
[2020-02-27] MEDS: LEVOTHYROXINE 25 MCG TABLET. PO SCH (05:05)
[2020-02-27 06:21] VITALS: BP 94/66
[2020-02-27 08:01] LABS: BASO # 0.1 x10^3/uL (0.0-0.2); BASO % 1 % (0-3); EOS # 0.3 x10^3/uL (0.0-0.7); EOS % 3 % (0-3); HEMATOCRIT 42.8 % (36.0-47.0); HEMOGLOBIN 14.7 g/dL (12.0-15.5); LYMPH # 2.9 x10^3/uL (1.0-4.8); LYMPH % 35 % (24-48); MEAN CORPUSCULAR HEMOGLOBIN 31 pg (25-35); MEAN CORPUSCULAR HGB CONC 34 g/dL (31-37); MEAN CORPUSCULAR VOLUME 91 fL (79-100); MONO # 0.9 x10^3/uL (0.0-1.1); MONO % 11 % (0-9); NEUT # 4.1 x10^3uL (1.8-7.7); NEUT % 50 % (31-73); PLATELET COUNT 312 x10^3/uL (140-400); RED BLOOD COUNT 4.69 x10^6/uL (3.50-5.40); WHITE BLOOD COUNT 8.3 x10^3/uL (4.0-11.0)
[2020-02-27 08:21] LABS: ALBUMIN 2.9 g/dL (3.4-5.0); ALBUMIN/GLOBULIN RATIO 0.7 (1.0-1.7); ALK PHOS 65 U/L (46-116); ALT (SGPT) 33 U/L (14-59); ANION GAP 10 (6-14); AST (SGOT) 25 U/L (15-37); BLOOD UREA NITROGEN 11 mg/dL (7-20); BUN/CREATININE RATIO 18 (6-20); C REACTIVE PROTEIN < 0.5 mg/L (0-3.3); CALCIUM 9.3 mg/dL (8.5-10.1); CARBON DIOXIDE 25 mmol/L (21-32); CHLORIDE 104 mmol/L (98-107); CREATININE 0.6 mg/dL (0.6-1.0); GFR 101.3; GLUCOSE 99 mg/dL (70-99); SODIUM 139 mmol/L (136-145); TOTAL BILIRUBIN 0.3 mg/dL (0.2-1.0); TOTAL PROTEIN 6.8 g/dL (6.4-8.2)
[2020-02-27] MEDS: LISINOPRIL 10 MG TABLET PO SCH (09:00)
[2020-02-27] MEDS: CEPHALEXIN 250 MG/5 ML ORAL.SUSP. PO SCH (09:50)
[2020-02-27] MEDS: FAMOTIDINE 20 MG TABLET PO SCH (09:51)
[2020-02-27] MEDS: buPROPion 100 MG TABLET PO SCH ×2 (09:51→12:43)
[2020-02-27] MEDS: metFORMIN 500 MG TABLET PO SCH ×2 (09:51→17:19)
[2020-02-27] MEDS: DIVALPROEX 125 MG CAP.SPRINK PO SCH ×2 (09:51→20:14)
[2020-02-27] MEDS: POTASSIUM CHLORIDE 20 MEQ TABLET.ER. PO SCH ×2 (09:51→20:14)
[2020-02-27] MEDS: QUEtiapine 25 MG TABLET. PO SCH ×2 (09:51→12:43)
[2020-02-27] MEDS: oxyCODONE IR 5 MG TABLET PO PRN (12:47)
--- NOTE | 2020-02-27 13:13 | NUR ---
Nursing note: Pt in her room this morning for meds and assessment. She was compliant with her meds crushed in a bite of applesauce and cooperative with her assessment. Pt appears to be in pain, very tearful and moaning. PRN pain med was given with her scheduled 1300 meds. Will continue to monitor.
[2020-02-27 15:54] VITALS: BP 132/81
[2020-02-27] MEDS: MELATONIN 3 MG TABLET PO SCH (20:13)
[2020-02-27] MEDS: traZODone 50 MG TABLET. PO SCH (20:13)
[2020-02-27] MEDS: ATORVASTATIN CALCIUM 20 MG TABLET PO SCH (20:14)
[2020-02-27] MEDS: LORazepam 0.5 MG TABLET PO PRN (20:20)
--- NOTE | 2020-02-27 23:02 | PDOC ---
Exam Note: Gary Note: Please also refer to the separate dictated note~for this date of service dictated separately.~Patient seen individually. Discussed the patient with Nursing staff reviewed the chart.~Reviewed interim history and current functioning. Reviewed vital signs,~Labs/ Radiology~and current medications noted below. Continue current treatment with the changes noted in the dictated addendum note Assessment: Vital Signs/I&O: Vital Signs Date Time Temp Pulse Resp B/P (MAP) Pulse Ox O2 Delivery O2 Flow Rate FiO2 02/27/20 15:54 97.8 111 20 132/81 (98) 97 02/26/20 16:53 Room Air I & O 02/26/20 02/26/20 02/27/20 15:00 23:00 07:00 Intake Total 1080 ml Output Total 900 ml Balance 1080 ml -900 ml Labs: Laboratory Tests Test 02/27/20 07:27 White Blood Count 8.3 x10^3/uL (4.0-11.0) Red Blood Count 4.69 x10^6/uL (3.50-5.40) Hemoglobin 14.7 g/dL (12.0-15.5) Hematocrit 42.8 % (36.0-47.0) Mean Corpuscular Volume 91 fL (79-100) Mean Corpuscular Hemoglobin 31 pg (25-35) Mean Corpuscular Hemoglobin Concent 34 g/dL (31-37) Red Cell Distribution Width 14.0 % (11.5-14.5) Platelet Count 312 x10^3/uL (140-400) Neutrophils (%) (Auto) 50 % (31-73) Lymphocytes (%) (Auto) 35 % (24-48) Monocytes (%) (Auto) 11 % (0-9) H Eosinophils (%) (Auto) 3 % (0-3) Basophils (%) (Auto) 1 % (0-3) Neutrophils # (Auto) 4.1 x10^3uL (1.8-7.7) Lymphocytes # (Auto) 2.9 x10^3/uL (1.0-4.8) Monocytes # (Auto) 0.9 x10^3/uL (0.0-1.1) Eosinophils # (Auto) 0.3 x10^3/uL (0.0-0.7) Basophils # (Auto) 0.1 x10^3/uL (0.0-0.2) Sodium Level 139 mmol/L (136-145) Potassium Level 4.0 mmol/L (3.5-5.1) Chloride Level 104 mmol/L (98-107) Carbon Dioxide Level 25 mmol/L (21-32) Anion Gap 10 (6-14) Blood Urea Nitrogen 11 mg/dL (7-20) Creatinine 0.6 mg/dL (0.6-1.0) Estimated GFR (Cockcroft-Gault) 101.3 BUN/Creatinine Ratio 18 (6-20) Glucose Level 99 mg/dL (70-99) Calcium Level 9.3 mg/dL (8.5-10.1) Total Bilirubin 0.3 mg/dL (0.2-1.0) Aspartate Amino Transferase (AST) 25 U/L (15-37) Alanine Aminotransferase (ALT) 33 U/L (14-59) Alkaline Phosphatase 65 U/L (46-116) C-Reactive Protein < 0.5 mg/L (0-3.3) Total Protein 6.8 g/dL (6.4-8.2) Albumin 2.9 g/dL (3.4-5.0) L Albumin/Globulin Ratio 0.7 (1.0-1.7) L Current Medications: I have reviewed the current psychotropics carefully including drug interactions. Risk benefit ratio favors no change other than as noted in my dictated progress note. Diagnosis: Problems: (1) Impulse control disorder, unspecified (2) Anxiety disorder, unspecified (3) Dementia, vascular, with depression (4) Dementia, vascular, with delusions (5) Dementia in Alzheimer's disease with depression (6) Dementia in Alzheimer's disease with delusions (7) Major neurocognitive disorder, due to vascular disease, with behavioral disturbance, mild (8) Bipolar disorder with psychotic features KISHAN BECK MD Feb 27, 2020 23:02
--- NOTE | 2020-02-27 23:03 | NUR ---
Pt sitting up in Broda chair in the day room at shift change. Pt anxious and tearful, disorganized. Pt cooperative with assessment and compliant with medications administered crushed i yogurt. Staff attempted to encourage pt to eat and drink this evening, however she only took a few bites of yogurt.
--- NOTE | 2020-02-28 01:19 | PN ---
DATE: 02/26/2020 PSYCHIATRIC PROGRESS NOTE This late entry 02/26/2020 covers elements not covered in my initial note. SUBJECTIVE: The patient was staffed at a treatment team meeting with the entire team in the morning and seen individually in the evening. Treatment team meeting and Lindsey, social service staff; Renata, activity therapy staff and TRA Angelo attended. She takes her medications crushed has had intermittent crying. Daughter could not attend the treatment team meeting as planned. Per TRA Lees in the evening, she has been quite labile in her mood. Oxycodone and Xanax helped a little, slept 5-1/4 hours previous night. Often spits out her medications. Does better with male staff members then female. REVIEW OF SYSTEMS: Ambulation impaired, in Broda chair. No CV, , pulmonary, eye, ENT system symptoms on review. Reliability poor. MENTAL STATUS EXAM: Oriented to herself. Insight, judgment, recent and remote memory, attention, concentration, fund of knowledge poor, consistent with her diagnoses. IMPRESSION: Major neurocognitive disorder, Alzheimer, vascular with delusion, depression, behavioral disturbance; anxiety disorder, unspecified; impulse control disorder, unspecified. PLAN: CT abdomen seemed to show diverticulitis, again will defer medical management to Dr. Hedrick. Continue psychotropics from initial note. Depakote is being adjusted to reach therapeutic level. Maintain Wellbutrin, melatonin, Seroquel, Ativan p.r.n., trazodone for insomnia. KISHAN BECK MD DR: WILLIAM/kitty JOB#: [id number] / [id number]
[2020-02-28] MEDS: LEVOTHYROXINE 25 MCG TABLET. PO SCH (05:09)
[2020-02-28 05:57] VITALS: BP 113/72
--- NOTE | 2020-02-28 08:47 | PDOC ---
Exam Note: Gary Note: This note is a late entry for 02/27/2020 covers elements not covered in my initial note. Subjective: The patient was seen individually in the evening of 02/27/2020. Per Yuliana DUTTA, she slept 5 hours previous night. She remains confused, tearful, mourning, anxious took some pain medications at lunch and was a little better. We will be checking labs for Depakote in the morning. Review of Systems: Ambulation impaired in Broda chair. No CV, , pulmonary, eye, ENT system symptoms on review. Reliability poor. Mental Status Exam: Oriented to herself. Insight and judgment, recent and remote memory, attention and concentration, fund of knowledge is poor consistent with her diagnoses. Laboratory Data: Reviewed. Impression: Major neurocognitive disorder, Alzheimer, vascular with delusions, depression and behavioral disturbance. Anxiety disorder unspecified. Impulse control disorder unspecified. Plan: Check labs in the morning. Rest unchanged for now. Assessment: Vital Signs/I&O: Vital Signs Date Time Temp Pulse Resp B/P (MAP) Pulse Ox O2 Delivery O2 Flow Rate FiO2 02/28/20 05:57 97.6 94 18 113/72 (86) 92 02/26/20 16:53 Room Air I & O 02/27/20 02/27/20 02/28/20 15:00 23:00 07:00 Intake Total 960 ml 360 ml Balance 960 ml 360 ml Current Medications: I have reviewed the current psychotropics carefully including drug interactions. Risk benefit ratio favors no change other than as noted in my dictated progress note. Diagnosis: Problems: (1) Impulse control disorder, unspecified (2) Anxiety disorder, unspecified (3) Dementia, vascular, with depression (4) Dementia, vascular, with delusions (5) Dementia in Alzheimer's disease with depression (6) Dementia in Alzheimer's disease with delusions (7) Major neurocognitive disorder, due to vascular disease, with behavioral disturbance, mild (8) Bipolar disorder with psychotic features KISHAN BECK MD Feb 28, 2020 08:47
[2020-02-28] MEDS: metFORMIN 500 MG TABLET PO SCH ×2 (08:48→17:00)
[2020-02-28] MEDS: DIVALPROEX 125 MG CAP.SPRINK PO SCH ×2 (08:50→21:10)
[2020-02-28] MEDS: FAMOTIDINE 20 MG TABLET PO SCH (08:52)
[2020-02-28] MEDS: POTASSIUM CHLORIDE 20 MEQ TABLET.ER. PO SCH ×2 (08:52→21:10)
[2020-02-28] MEDS: QUEtiapine 25 MG TABLET. PO SCH ×2 (08:53→12:17)
[2020-02-28] MEDS: buPROPion 100 MG TABLET PO SCH ×2 (08:53→12:17)
[2020-02-28] MEDS: LISINOPRIL 10 MG TABLET PO SCH (08:53)
[2020-02-28 10:06] LABS: BASO # 0.1 x10^3/uL (0.0-0.2); BASO % 1 % (0-3); EOS # 0.2 x10^3/uL (0.0-0.7); EOS % 3 % (0-3); HEMATOCRIT 44.3 % (36.0-47.0); LYMPH # 2.8 x10^3/uL (1.0-4.8); LYMPH % 41 % (24-48); MEAN CORPUSCULAR HEMOGLOBIN 31 pg (25-35); MEAN CORPUSCULAR HGB CONC 34 g/dL (31-37); MEAN CORPUSCULAR VOLUME 92 fL (79-100); MONO # 0.7 x10^3/uL (0.0-1.1); MONO % 11 % (0-9); NEUT % 44 % (31-73); PLATELET COUNT 285 x10^3/uL (140-400); RED CELL DISTRIBUTION WIDTH 14.1 % (11.5-14.5); WHITE BLOOD COUNT 6.7 x10^3/uL (4.0-11.0)
[2020-02-28 10:16] LABS: ALBUMIN 2.9 g/dL (3.4-5.0); ALBUMIN/GLOBULIN RATIO 0.8 (1.0-1.7); ALK PHOS 65 U/L (46-116); ALT (SGPT) 36 U/L (14-59); ANION GAP 7 (6-14); AST (SGOT) 22 U/L (15-37); BLOOD UREA NITROGEN 13 mg/dL (7-20); BUN/CREATININE RATIO 19 (6-20); CALCIUM 9.2 mg/dL (8.5-10.1); CARBON DIOXIDE 26 mmol/L (21-32); CHLORIDE 105 mmol/L (98-107); CREATININE 0.7 mg/dL (0.6-1.0); GFR 84.8; GLUCOSE 98 mg/dL (70-99); POTASSIUM 4.1 mmol/L (3.5-5.1); SODIUM 138 mmol/L (136-145); TOTAL BILIRUBIN 0.3 mg/dL (0.2-1.0); TOTAL PROTEIN 6.7 g/dL (6.4-8.2); VAL ACID 36 mcg/mL (50-100)
[2020-02-28] MEDS: oxyCODONE IR 5 MG TABLET PO PRN (12:17)
[2020-02-28] MEDS: LORazepam 0.5 MG TABLET PO PRN ×2 (12:17→21:11)
[2020-02-28] MEDS: ACETAMINOPHEN 325 MG TABLET PO PRN (12:18)
[2020-02-28 16:21] VITALS: BP 82/61
[2020-02-28 17:27] VITALS: BP 109/74
[2020-02-28] MEDS: ATORVASTATIN CALCIUM 20 MG TABLET PO SCH (21:09)
[2020-02-28] MEDS: MELATONIN 3 MG TABLET PO SCH (21:10)
[2020-02-28] MEDS: traZODone 50 MG TABLET. PO SCH (21:10)
--- NOTE | 2020-02-28 22:36 | PDOC ---
Exam Note: Gary Note: Please also refer to the separate dictated note~for this date of service dictated separately.~Patient seen individually. Discussed the patient with Nursing staff reviewed the chart.~Reviewed interim history and current functioning. Reviewed vital signs,~Labs/ Radiology~and current medications noted below. Continue current treatment with the changes noted in the dictated addendum note Assessment: Vital Signs/I&O: Vital Signs Date Time Temp Pulse Resp B/P (MAP) Pulse Ox O2 Delivery O2 Flow Rate FiO2 02/28/20 17:27 117 109/74 (86) 02/28/20 16:21 97.9 20 96 Room Air I & O 02/27/20 02/27/20 02/28/20 15:00 23:00 07:00 Intake Total 960 ml 360 ml Balance 960 ml 360 ml Labs: Laboratory Tests Test 02/28/20 09:35 02/28/20 09:40 Ammonia 16 mcmol/L (11-34) White Blood Count 6.7 x10^3/uL (4.0-11.0) Red Blood Count 4.80 x10^6/uL (3.50-5.40) Hemoglobin 15.0 g/dL (12.0-15.5) Hematocrit 44.3 % (36.0-47.0) Mean Corpuscular Volume 92 fL (79-100) Mean Corpuscular Hemoglobin 31 pg (25-35) Mean Corpuscular Hemoglobin Concent 34 g/dL (31-37) Red Cell Distribution Width 14.1 % (11.5-14.5) Platelet Count 285 x10^3/uL (140-400) Neutrophils (%) (Auto) 44 % (31-73) Lymphocytes (%) (Auto) 41 % (24-48) Monocytes (%) (Auto) 11 % (0-9) H Eosinophils (%) (Auto) 3 % (0-3) Basophils (%) (Auto) 1 % (0-3) Neutrophils # (Auto) 3.0 x10^3uL (1.8-7.7) Lymphocytes # (Auto) 2.8 x10^3/uL (1.0-4.8) Monocytes # (Auto) 0.7 x10^3/uL (0.0-1.1) Eosinophils # (Auto) 0.2 x10^3/uL (0.0-0.7) Basophils # (Auto) 0.1 x10^3/uL (0.0-0.2) Sodium Level 138 mmol/L (136-145) Potassium Level 4.1 mmol/L (3.5-5.1) Chloride Level 105 mmol/L (98-107) Carbon Dioxide Level 26 mmol/L (21-32) Anion Gap 7 (6-14) Blood Urea Nitrogen 13 mg/dL (7-20) Creatinine 0.7 mg/dL (0.6-1.0) Estimated GFR (Cockcroft-Gault) 84.8 BUN/Creatinine Ratio 19 (6-20) Glucose Level 98 mg/dL (70-99) Calcium Level 9.2 mg/dL (8.5-10.1) Total Bilirubin 0.3 mg/dL (0.2-1.0) Aspartate Amino Transferase (AST) 22 U/L (15-37) Alanine Aminotransferase (ALT) 36 U/L (14-59) Alkaline Phosphatase 65 U/L (46-116) Total Protein 6.7 g/dL (6.4-8.2) Albumin 2.9 g/dL (3.4-5.0) L Albumin/Globulin Ratio 0.8 (1.0-1.7) L Valproic Acid Level 36 mcg/mL (50-100) L Valproic Acid Last Dose Date 02/27/20 Valproic Acid Last Dose Time 2100 Current Medications: Meds: Current Medications Medications (Trade) Dose Ordered Sig/Britta Route PRN Reason Start Time Stop Time Status Last Admin Dose Admin Divalproex Sodium (Depakote Sprinkles) 750 mg BID PO 02/28/20 21:00 02/28/20 21:10 I have reviewed the current psychotropics carefully including drug interactions. Risk benefit ratio favors no change other than as noted in my dictated progress note. Diagnosis: Problems: (1) Impulse control disorder, unspecified (2) Anxiety disorder, unspecified (3) Dementia, vascular, with depression (4) Dementia, vascular, with delusions (5) Dementia in Alzheimer's disease with depression (6) Dementia in Alzheimer's disease with delusions (7) Major neurocognitive disorder, due to vascular disease, with behavioral disturbance, mild (8) Bipolar disorder with psychotic features KISHAN BECK MD Feb 28, 2020 22:36
--- NOTE | 2020-02-28 23:00 | NUR ---
Pt located in dayroom this evening. Pt restless, tearful and disorganized. Compliant with crushed medication in one bite of pudding. PRN Ativan administered with HS medications.
[2020-02-29] MEDS: LEVOTHYROXINE 25 MCG TABLET. PO SCH (05:33)
[2020-02-29 06:13] VITALS: BP 90/60
[2020-02-29] MEDS: LISINOPRIL 10 MG TABLET PO SCH (09:00)
[2020-02-29] MEDS: POTASSIUM CHLORIDE 20 MEQ TABLET.ER. PO SCH ×2 (09:13→20:20)
[2020-02-29] MEDS: metFORMIN 500 MG TABLET PO SCH ×2 (09:13→17:13)
[2020-02-29] MEDS: FAMOTIDINE 20 MG TABLET PO SCH (09:13)
[2020-02-29] MEDS: DIVALPROEX 125 MG CAP.SPRINK PO SCH ×2 (09:13→20:20)
[2020-02-29] MEDS: buPROPion 100 MG TABLET PO SCH ×2 (09:14→13:00)
[2020-02-29] MEDS: QUEtiapine 25 MG TABLET. PO SCH ×2 (09:14→13:00)
[2020-02-29 16:24] VITALS: BP 100/87
[2020-02-29] MEDS: ATORVASTATIN CALCIUM 20 MG TABLET PO SCH (20:19)
[2020-02-29] MEDS: traZODone 50 MG TABLET. PO SCH (20:20)
[2020-02-29] MEDS: MELATONIN 3 MG TABLET PO SCH (20:20)
--- NOTE | 2020-02-29 22:37 | PDOC ---
Exam Note: Gary Note: Please also refer to the separate dictated note~for this date of service dictated separately.~Patient seen individually. Discussed the patient with Nursing staff reviewed the chart.~Reviewed interim history and current functioning. Reviewed vital signs,~Labs/ Radiology~and current medications noted below. Continue current treatment with the changes noted in the dictated addendum note Assessment: Vital Signs/I&O: Vital Signs Date Time Temp Pulse Resp B/P (MAP) Pulse Ox O2 Delivery O2 Flow Rate FiO2 02/29/20 16:24 98.0 74 20 100/87 (91) 97 02/28/20 16:21 Room Air I & O 02/28/20 02/28/20 02/29/20 15:00 23:00 07:00 Intake Total 240 ml 240 ml 100 ml Output Total 300 ml 200 ml Balance 240 ml -60 ml -100 ml Current Medications: I have reviewed the current psychotropics carefully including drug interactions. Risk benefit ratio favors no change other than as noted in my dictated progress note. Diagnosis: Problems: (1) Impulse control disorder, unspecified (2) Anxiety disorder, unspecified (3) Dementia, vascular, with depression (4) Dementia, vascular, with delusions (5) Dementia in Alzheimer's disease with depression (6) Dementia in Alzheimer's disease with delusions (7) Major neurocognitive disorder, due to vascular disease, with behavioral disturbance, mild (8) Bipolar disorder with psychotic features KISHAN BECK MD Feb 29, 2020 22:37
--- NOTE | 2020-02-29 23:58 | NUR ---
Pt restless in her broda chair this evening. Pt continues to be tearful at times. Compliant with crushed medications in one bite of pudding.
[2020-03-01] MEDS: LEVOTHYROXINE 25 MCG TABLET. PO SCH (06:06)
[2020-03-01 06:32] VITALS: BP 110/75
[2020-03-01] MEDS: LISINOPRIL 10 MG TABLET PO SCH (09:00)
[2020-03-01] MEDS: metFORMIN 500 MG TABLET PO SCH ×2 (09:17→17:08)
[2020-03-01] MEDS: POTASSIUM CHLORIDE 20 MEQ TABLET.ER. PO SCH ×2 (09:17→20:14)
[2020-03-01] MEDS: DIVALPROEX 125 MG CAP.SPRINK PO SCH ×2 (09:17→20:14)
[2020-03-01] MEDS: QUEtiapine 25 MG TABLET. PO SCH ×2 (09:18→12:25)
[2020-03-01] MEDS: FAMOTIDINE 20 MG TABLET PO SCH (09:18)
[2020-03-01] MEDS: buPROPion 100 MG TABLET PO SCH ×2 (09:18→12:25)
--- NOTE | 2020-03-01 10:14 | PDOC ---
Exam Note: Gary Note: This note is a late entry for 02/28/2020 covers elements not covered in my initial note. Subjective: The patient was seen individually in the evening of 02/28/2020. Per Arlene DUTTA, she slept 6 hours previous night. She continues to have emotional ability whining, crying, less labile than before. Review of Systems: Ambulation impaired in wheelchair. No CV, , pulmonary, eye, ENT system symptoms on review. Reliability poor. Mental Status Exam: Oriented to herself. Insight and judgment, recent and remote memory, attention and concentration, fund of knowledge is poor consistent with her diagnoses. Laboratory Data: Reviewed. Impression: Major neurocognitive disorder, Alzheimer, vascular with delusions, depression and behavioral disturbance. Anxiety disorder unspecified. Impulse control disorder unspecified. Plan: Continue psychotropics from initial note. Valproic acid level at last check was 36 on Depakote Sprinkle 500 mg b.i.d. We will increase to 750 mg b.i.d. Check CBC, CMP, valproic acid level, ammonia level in 3 days. Rest unchanged. Assessment: Vital Signs/I&O: Vital Signs Date Time Temp Pulse Resp B/P (MAP) Pulse Ox O2 Delivery O2 Flow Rate FiO2 03/01/20 06:32 98.4 85 18 110/75 (87) 94 02/28/20 16:21 Room Air I & O 02/29/20 02/29/20 03/01/20 15:00 23:00 07:00 Intake Total 0 ml 240 ml Output Total 300 ml 300 ml Balance 0 ml -60 ml -300 ml Current Medications: I have reviewed the current psychotropics carefully including drug interactions. Risk benefit ratio favors no change other than as noted in my dictated progress note. Diagnosis: Problems: (1) Impulse control disorder, unspecified (2) Anxiety disorder, unspecified (3) Dementia, vascular, with depression (4) Dementia, vascular, with delusions (5) Dementia in Alzheimer's disease with depression (6) Dementia in Alzheimer's disease with delusions (7) Major neurocognitive disorder, due to vascular disease, with behavioral disturbance, mild (8) Bipolar disorder with psychotic features KISHAN BECK MD Mar 01, 2020 10:14
--- NOTE | 2020-03-01 10:48 | PDOC ---
Exam Note: Gary Note: This note is a late entry for 02/29/2020 covers elements not covered in my initial note. Subjective: The patient was seen individually in the evening of 02/29/2020. Per Arlene DUTTA, she is somewhat sleepy and tired during the day, less labile. I met with her at length in the evening. She was still somewhat labile in her mood but again better than before. Review of Systems: Ambulation impaired in wheelchair. No CV, , pulmonary, ey e, ENT system symptoms on review. Reliability poor. Mental Status Exam: Oriented to herself. Insight and judgment, recent and remote memory, attention and concentration, fund of knowledge is poor consistent with her diagnoses. Laboratory Data: Reviewed. Impression: Major neurocognitive disorder, Alzheimer, vascular with delusions, depression and behavioral disturbance. Anxiety disorder unspecified. Impulse control disorder unspecified. Plan: Rest unchanged from a psychiatric standpoint. Assessment: Vital Signs/I&O: Vital Signs Date Time Temp Pulse Resp B/P (MAP) Pulse Ox O2 Delivery O2 Flow Rate FiO2 03/01/20 06:32 98.4 85 18 110/75 (87) 94 02/28/20 16:21 Room Air I & O 02/29/20 02/29/20 03/01/20 15:00 23:00 07:00 Intake Total 0 ml 240 ml Output Total 300 ml 300 ml Balance 0 ml -60 ml -300 ml Current Medications: I have reviewed the current psychotropics carefully including drug interactions. Risk benefit ratio favors no change other than as noted in my dictated progress note. Diagnosis: Problems: (1) Impulse control disorder, unspecified (2) Anxiety disorder, unspecified (3) Dementia, vascular, with depression (4) Dementia, vascular, with delusions (5) Dementia in Alzheimer's disease with depression (6) Dementia in Alzheimer's disease with delusions (7) Major neurocognitive disorder, due to vascular disease, with behavioral disturbance, mild (8) Bipolar disorder with psychotic features KISHAN BECK MD Mar 01, 2020 10:48
[2020-03-01 12:59] LABS: BASO # 0.1 x10^3/uL (0.0-0.2); BASO % 1 % (0-3); EOS # 0.2 x10^3/uL (0.0-0.7); EOS % 1 % (0-3); HEMOGLOBIN 15.3 g/dL (12.0-15.5); LYMPH # 4.3 x10^3/uL (1.0-4.8); LYMPH % 37 % (24-48); MEAN CORPUSCULAR HEMOGLOBIN 31 pg (25-35); MEAN CORPUSCULAR HGB CONC 33 g/dL (31-37); MEAN CORPUSCULAR VOLUME 93 fL (79-100); MONO # 1.1 x10^3/uL (0.0-1.1); MONO % 9 % (0-9); NEUT # 6.1 x10^3uL (1.8-7.7); NEUT % 52 % (31-73); PLATELET COUNT 293 x10^3/uL (140-400); RED BLOOD COUNT 4.93 x10^6/uL (3.50-5.40); RED CELL DISTRIBUTION WIDTH 14.1 % (11.5-14.5); WHITE BLOOD COUNT 11.7 x10^3/uL (4.0-11.0)
[2020-03-01 13:08] LABS: ALBUMIN 3.3 g/dL (3.4-5.0); ALBUMIN/GLOBULIN RATIO 0.8 (1.0-1.7); CREATININE 0.7 mg/dL (0.6-1.0); GFR 84.8; POTASSIUM 4.7 mmol/L (3.5-5.1); TOTAL BILIRUBIN 0.3 mg/dL (0.2-1.0); TOTAL PROTEIN 7.4 g/dL (6.4-8.2)
[2020-03-01 13:35] LABS: % ATYL 1 % (0-0); % BANDS 3 % (0-9); % BASOS 1 % (0-3); % EOS 3 % (0-5); % LYMPHS 37 % (24-48); % MONOS 8 % (0-10); % SEGS 47 % (35-66)
[2020-03-01 13:36] LABS: PLT ESTIMATE ADEQUATE (ADEQUATE)
[2020-03-01 16:14] VITALS: BP 117/78
[2020-03-01] MEDS: traZODone 50 MG TABLET. PO SCH (20:14)
[2020-03-01] MEDS: MELATONIN 3 MG TABLET PO SCH (20:14)
[2020-03-01] MEDS: ATORVASTATIN CALCIUM 20 MG TABLET PO SCH (20:14)
[2020-03-01] MEDS: GABAPENTIN 100 MG CAPSULE. PO SCH (20:15)
--- NOTE | 2020-03-01 22:36 | PDOC ---
Exam Note: Gary Note: Please also refer to the separate dictated note~for this date of service dictated separately.~Patient seen individually. Discussed the patient with Nursing staff reviewed the chart.~Reviewed interim history and current functioning. Reviewed vital signs,~Labs/ Radiology~and current medications noted below. Continue current treatment with the changes noted in the dictated addendum note Assessment: Vital Signs/I&O: Vital Signs Date Time Temp Pulse Resp B/P (MAP) Pulse Ox O2 Delivery O2 Flow Rate FiO2 03/01/20 16:14 97.5 98 22 117/78 (91) 95 02/28/20 16:21 Room Air I & O 02/29/20 02/29/20 03/01/20 15:00 23:00 07:00 Intake Total 0 ml 240 ml Output Total 300 ml 300 ml Balance 0 ml -60 ml -300 ml Labs: Laboratory Tests Test 03/01/20 12:41 White Blood Count 11.7 x10^3/uL (4.0-11.0) H Red Blood Count 4.93 x10^6/uL (3.50-5.40) Hemoglobin 15.3 g/dL (12.0-15.5) Hematocrit 46.0 % (36.0-47.0) Mean Corpuscular Volume 93 fL (79-100) Mean Corpuscular Hemoglobin 31 pg (25-35) Mean Corpuscular Hemoglobin Concent 33 g/dL (31-37) Red Cell Distribution Width 14.1 % (11.5-14.5) Platelet Count 293 x10^3/uL (140-400) Neutrophils (%) (Auto) 52 % (31-73) Lymphocytes (%) (Auto) 37 % (24-48) Monocytes (%) (Auto) 9 % (0-9) Eosinophils (%) (Auto) 1 % (0-3) Basophils (%) (Auto) 1 % (0-3) Neutrophils # (Auto) 6.1 x10^3uL (1.8-7.7) Lymphocytes # (Auto) 4.3 x10^3/uL (1.0-4.8) Monocytes # (Auto) 1.1 x10^3/uL (0.0-1.1) Eosinophils # (Auto) 0.2 x10^3/uL (0.0-0.7) Basophils # (Auto) 0.1 x10^3/uL (0.0-0.2) Segmented Neutrophils % 47 % (35-66) Band Neutrophils % 3 % (0-9) Lymphocytes % 37 % (24-48) Atypical Lymphocytes % (Manual) 1 % (0-0) H Monocytes % 8 % (0-10) Eosinophils % 3 % (0-5) Basophils % 1 % (0-3) Platelet Estimate Adequate (ADEQUATE) Sodium Level 137 mmol/L (136-145) Potassium Level 4.7 mmol/L (3.5-5.1) Chloride Level 103 mmol/L (98-107) Carbon Dioxide Level 24 mmol/L (21-32) Anion Gap 10 (6-14) Blood Urea Nitrogen 18 mg/dL (7-20) Creatinine 0.7 mg/dL (0.6-1.0) Estimated GFR (Cockcroft-Gault) 84.8 BUN/Creatinine Ratio 26 (6-20) H Glucose Level 86 mg/dL (70-99) Calcium Level 10.0 mg/dL (8.5-10.1) Total Bilirubin 0.3 mg/dL (0.2-1.0) Aspartate Amino Transferase (AST) 23 U/L (15-37) Alanine Aminotransferase (ALT) 37 U/L (14-59) Alkaline Phosphatase 69 U/L (46-116) Total Protein 7.4 g/dL (6.4-8.2) Albumin 3.3 g/dL (3.4-5.0) L Albumin/Globulin Ratio 0.8 (1.0-1.7) L Current Medications: Meds: Current Medications Medications (Trade) Dose Ordered Sig/Britta Route PRN Reason Start Time Stop Time Status Last Admin Dose Admin Gabapentin (Neurontin) 100 mg TID PO 03/01/20 21:00 03/01/20 20:15 I have reviewed the current psychotropics carefully including drug interactions. Risk benefit ratio favors no change other than as noted in my dictated progress note. Diagnosis: Problems: (1) Impulse control disorder, unspecified (2) Anxiety disorder, unspecified (3) Dementia, vascular, with depression (4) Dementia, vascular, with delusions (5) Dementia in Alzheimer's disease with depression (6) Dementia in Alzheimer's disease with delusions (7) Major neurocognitive disorder, due to vascular disease, with behavioral disturbance, mild KISHAN BECK MD Mar 01, 2020 22:36
--- NOTE | 2020-03-02 00:28 | NUR ---
Pt restless in her broda this evening. Pt hollering out and tearful at times. Compliant with crushed medications.
[2020-03-02] MEDS: LEVOTHYROXINE 25 MCG TABLET. PO SCH (05:14)
[2020-03-02 06:24] VITALS: BP 113/81
--- NOTE | 2020-03-02 09:57 | PDOC ---
Exam Note: Gary Note: This note is a late entry for 03/01/2020 covers elements not covered in my initial note. Subjective: The patient was seen individually in the evening of 03/01/2020. Per Arlene DUTTA, she is tired during the day, less labile. She was still somewhat labile in her mood but again better than before. Review of Systems: Ambulation impaired in Broda chair. No CV, , pulmonary, eye, ENT system symptoms on review. Reliability poor. Mental Status Exam: Oriented to herself. Insight and judgment, recent and remote memory, attention and concentration, fund of knowledge is poor consistent with her diagnoses. Laboratory Data: Reviewed. Impression: Major neurocognitive disorder, Alzheimer, vascular with delusions, depression and behavioral disturbance. Anxiety disorder unspecified. Impulse control disorder unspecified. Plan: Rest unchanged from a psychiatric standpoint. Assessment: Vital Signs/I&O: Vital Signs Date Time Temp Pulse Resp B/P (MAP) Pulse Ox O2 Delivery O2 Flow Rate FiO2 03/02/20 06:24 97.0 78 20 113/81 (92) 100 02/28/20 16:21 Room Air I & O 03/01/20 03/01/20 03/02/20 15:00 23:00 07:00 Intake Total 480 ml 120 ml Output Total 500 ml Balance 480 ml 120 ml -500 ml Labs: Laboratory Tests Test 03/01/20 12:41 White Blood Count 11.7 x10^3/uL (4.0-11.0) H Red Blood Count 4.93 x10^6/uL (3.50-5.40) Hemoglobin 15.3 g/dL (12.0-15.5) Hematocrit 46.0 % (36.0-47.0) Mean Corpuscular Volume 93 fL (79-100) Mean Corpuscular Hemoglobin 31 pg (25-35) Mean Corpuscular Hemoglobin Concent 33 g/dL (31-37) Red Cell Distribution Width 14.1 % (11.5-14.5) Platelet Count 293 x10^3/uL (140-400) Neutrophils (%) (Auto) 52 % (31-73) Lymphocytes (%) (Auto) 37 % (24-48) Monocytes (%) (Auto) 9 % (0-9) Eosinophils (%) (Auto) 1 % (0-3) Basophils (%) (Auto) 1 % (0-3) Neutrophils # (Auto) 6.1 x10^3uL (1.8-7.7) Lymphocytes # (Auto) 4.3 x10^3/uL (1.0-4.8) Monocytes # (Auto) 1.1 x10^3/uL (0.0-1.1) Eosinophils # (Auto) 0.2 x10^3/uL (0.0-0.7) Basophils # (Auto) 0.1 x10^3/uL (0.0-0.2) Segmented Neutrophils % 47 % (35-66) Band Neutrophils % 3 % (0-9) Lymphocytes % 37 % (24-48) Atypical Lymphocytes % (Manual) 1 % (0-0) H Monocytes % 8 % (0-10) Eosinophils % 3 % (0-5) Basophils % 1 % (0-3) Platelet Estimate Adequate (ADEQUATE) Sodium Level 137 mmol/L (136-145) Potassium Level 4.7 mmol/L (3.5-5.1) Chloride Level 103 mmol/L (98-107) Carbon Dioxide Level 24 mmol/L (21-32) Anion Gap 10 (6-14) Blood Urea Nitrogen 18 mg/dL (7-20) Creatinine 0.7 mg/dL (0.6-1.0) Estimated GFR (Cockcroft-Gault) 84.8 BUN/Creatinine Ratio 26 (6-20) H Glucose Level 86 mg/dL (70-99) Calcium Level 10.0 mg/dL (8.5-10.1) Total Bilirubin 0.3 mg/dL (0.2-1.0) Aspartate Amino Transferase (AST) 23 U/L (15-37) Alanine Aminotransferase (ALT) 37 U/L (14-59) Alkaline Phosphatase 69 U/L (46-116) Total Protein 7.4 g/dL (6.4-8.2) Albumin 3.3 g/dL (3.4-5.0) L Albumin/Globulin Ratio 0.8 (1.0-1.7) L Current Medications: Meds: Current Medications Medications (Trade) Dose Ordered Sig/Britta Route PRN Reason Start Time Stop Time Status Last Admin Dose Admin Gabapentin (Neurontin) 100 mg TID PO 03/01/20 21:00 03/01/20 20:15 I have reviewed the current psychotropics carefully including drug interactions. Risk benefit ratio favors no change other than as noted in my dictated progress note. Diagnosis: Problems: (1) Impulse control disorder, unspecified (2) Anxiety disorder, unspecified (3) Dementia, vascular, with depression (4) Dementia, vascular, with delusions (5) Dementia in Alzheimer's disease with depression (6) Dementia in Alzheimer's disease with delusions (7) Major neurocognitive disorder, due to vascular disease, with behavioral disturbance, mild KISHAN BECK MD Mar 02, 2020 09:56
--- NOTE | 2020-03-02 11:16 | NUR ---
[facility] faxed over referrals on pt to [facility].
[2020-03-02] MEDS: metFORMIN 500 MG TABLET PO SCH ×2 (11:45→17:27)
[2020-03-02] MEDS: FAMOTIDINE 20 MG TABLET PO SCH (11:45)
[2020-03-02] MEDS: QUEtiapine 25 MG TABLET. PO SCH ×2 (11:46→15:13)
[2020-03-02] MEDS: DIVALPROEX 125 MG CAP.SPRINK PO SCH ×2 (11:46→20:23)
[2020-03-02] MEDS: buPROPion 100 MG TABLET PO SCH ×2 (11:46→15:13)
[2020-03-02] MEDS: LISINOPRIL 10 MG TABLET PO SCH (11:46)
[2020-03-02] MEDS: POTASSIUM CHLORIDE 20 MEQ TABLET.ER. PO SCH ×2 (11:47→20:24)
[2020-03-02] MEDS: GABAPENTIN 100 MG CAPSULE. PO SCH ×3 (11:47→20:30)
[2020-03-02 17:07] VITALS: BP 117/81
[2020-03-02] MEDS: traZODone 50 MG TABLET. PO SCH (20:23)
[2020-03-02] MEDS: MELATONIN 3 MG TABLET PO SCH (20:23)
[2020-03-02] MEDS: ATORVASTATIN CALCIUM 20 MG TABLET PO SCH (20:23)
--- NOTE | 2020-03-02 22:19 | PDOC ---
Exam Note: Gary Note: Please also refer to the separate dictated note~for this date of service dictated separately.~Patient seen individually. Discussed the patient with Nursing staff reviewed the chart.~Reviewed interim history and current functioning. Reviewed vital signs,~Labs/ Radiology~and current medications noted below. Continue current treatment with the changes noted in the dictated addendum note Assessment: Vital Signs/I&O: Vital Signs Date Time Temp Pulse Resp B/P (MAP) Pulse Ox O2 Delivery O2 Flow Rate FiO2 03/02/20 17:07 117/81 (93) 03/02/20 16:00 97.6 88 22 98 Room Air I & O 03/01/20 03/01/20 03/02/20 15:00 23:00 07:00 Intake Total 480 ml 120 ml Output Total 500 ml Balance 480 ml 120 ml -500 ml Current Medications: I have reviewed the current psychotropics carefully including drug interactions. Risk benefit ratio favors no change other than as noted in my dictated progress note. Diagnosis: Problems: (1) Impulse control disorder, unspecified (2) Anxiety disorder, unspecified (3) Dementia, vascular, with depression (4) Dementia, vascular, with delusions (5) Dementia in Alzheimer's disease with depression (6) Dementia in Alzheimer's disease with delusions (7) Major neurocognitive disorder, due to vascular disease, with behavioral disturbance, mild KISHAN BECK MD Mar 02, 2020 22:19
--- NOTE | 2020-03-02 23:11 | NUR ---
Pt sitting up in Broda chair in the day room at shift change. Pt anxious and tearful, disorganized. Pt cooperative with assessment and compliant with medications administered crushed in applesauce.
[2020-03-03] MEDS: LEVOTHYROXINE 25 MCG TABLET. PO SCH (05:24)
[2020-03-03 05:55] VITALS: BP 113/50
[2020-03-03 06:52] LABS: BASO # 0.1 x10^3/uL (0.0-0.2); BASO % 1 % (0-3); EOS # 0.2 x10^3/uL (0.0-0.7); EOS % 2 % (0-3); HEMATOCRIT 41.9 % (36.0-47.0); HEMOGLOBIN 14.1 g/dL (12.0-15.5); LYMPH % 44 % (24-48); MEAN CORPUSCULAR HEMOGLOBIN 31 pg (25-35); MEAN CORPUSCULAR HGB CONC 34 g/dL (31-37); MEAN CORPUSCULAR VOLUME 93 fL (79-100); MONO # 0.9 x10^3/uL (0.0-1.1); MONO % 9 % (0-9); NEUT % 44 % (31-73); PLATELET COUNT 266 x10^3/uL (140-400); RED BLOOD COUNT 4.52 x10^6/uL (3.50-5.40); RED CELL DISTRIBUTION WIDTH 14.2 % (11.5-14.5); WHITE BLOOD COUNT 9.1 x10^3/uL (4.0-11.0)
[2020-03-03 07:05] LABS: ALBUMIN 2.9 g/dL (3.4-5.0); ALBUMIN/GLOBULIN RATIO 0.8 (1.0-1.7); ALK PHOS 60 U/L (46-116); ALT (SGPT) 33 U/L (14-59); ANION GAP 9 (6-14); AST (SGOT) 21 U/L (15-37); BLOOD UREA NITROGEN 12 mg/dL (7-20); BUN/CREATININE RATIO 15 (6-20); CALCIUM 9.2 mg/dL (8.5-10.1); CARBON DIOXIDE 25 mmol/L (21-32); CHLORIDE 104 mmol/L (98-107); CREATININE 0.8 mg/dL (0.6-1.0); GFR 72.7; GLUCOSE 80 mg/dL (70-99); POTASSIUM 4.2 mmol/L (3.5-5.1); SODIUM 138 mmol/L (136-145); TOTAL BILIRUBIN 0.3 mg/dL (0.2-1.0); TOTAL PROTEIN 6.7 g/dL (6.4-8.2)
[2020-03-03 07:16] LABS: VAL ACID 68 mcg/mL (50-100)
[2020-03-03] MEDS: LISINOPRIL 10 MG TABLET PO SCH (09:00)
[2020-03-03] MEDS: FAMOTIDINE 20 MG TABLET PO SCH (11:45)
[2020-03-03] MEDS: DIVALPROEX 125 MG CAP.SPRINK PO SCH ×2 (11:45→20:18)
[2020-03-03] MEDS: metFORMIN 500 MG TABLET PO SCH ×2 (11:46→17:00)
[2020-03-03] MEDS: buPROPion 100 MG TABLET PO SCH ×2 (11:46→15:06)
[2020-03-03] MEDS: GABAPENTIN 100 MG CAPSULE. PO SCH ×3 (11:46→20:18)
[2020-03-03] MEDS: POTASSIUM CHLORIDE 20 MEQ TABLET.ER. PO SCH ×2 (11:46→20:17)
[2020-03-03] MEDS: QUEtiapine 25 MG TABLET. PO SCH ×2 (11:46→13:00)
[2020-03-03 12:03] VITALS: BP 113/76
[2020-03-03 15:02] VITALS: BP 86/67
--- NOTE | 2020-03-03 17:05 | NUR ---
Patient has been restless, tearful, confused. Not able to verbalize concerns. Not eating well, difficult to administer meds due to patient not opening mouth very wide and patient is a bit reluctant to take the meds crushed with applesauce as it appears pt does not like the taste. Pts BP this afternoon low, held afternoon seroquel. Dr Nash mccray. TM.
--- NOTE | 2020-03-03 17:19 | NUR ---
Holding patients glucophage this evening due to BG 80's and patient not eating well. BID accu checks ordered.
[2020-03-03] MEDS: traZODone 50 MG TABLET. PO SCH (20:18)
[2020-03-03] MEDS: ATORVASTATIN CALCIUM 20 MG TABLET PO SCH (20:18)
[2020-03-03] MEDS: MELATONIN 3 MG TABLET PO SCH (20:18)
--- NOTE | 2020-03-03 22:23 | PDOC ---
Exam Note: Gary Note: Please also refer to the separate dictated note~for this date of service dictated separately.~Patient seen individually. Discussed the patient with Nursing staff reviewed the chart.~Reviewed interim history and current functioning. Reviewed vital signs,~Labs/ Radiology~and current medications noted below. Continue current treatment with the changes noted in the dictated addendum note Assessment: Vital Signs/I&O: Vital Signs Date Time Temp Pulse Resp B/P (MAP) Pulse Ox O2 Delivery O2 Flow Rate FiO2 03/03/20 15:02 97.8 96 86/67 (73) 96 03/03/20 05:55 18 Room Air I & O 03/02/20 03/02/20 03/03/20 15:00 23:00 07:00 Intake Total 720 ml 360 ml Output Total 500 ml Balance 720 ml 360 ml -500 ml Labs: Laboratory Tests Test 03/03/20 06:33 03/03/20 17:16 03/03/20 19:12 White Blood Count 9.1 x10^3/uL (4.0-11.0) Red Blood Count 4.52 x10^6/uL (3.50-5.40) Hemoglobin 14.1 g/dL (12.0-15.5) Hematocrit 41.9 % (36.0-47.0) Mean Corpuscular Volume 93 fL (79-100) Mean Corpuscular Hemoglobin 31 pg (25-35) Mean Corpuscular Hemoglobin Concent 34 g/dL (31-37) Red Cell Distribution Width 14.2 % (11.5-14.5) Platelet Count 266 x10^3/uL (140-400) Neutrophils (%) (Auto) 44 % (31-73) Lymphocytes (%) (Auto) 44 % (24-48) Monocytes (%) (Auto) 9 % (0-9) Eosinophils (%) (Auto) 2 % (0-3) Basophils (%) (Auto) 1 % (0-3) Neutrophils # (Auto) 4.0 x10^3uL (1.8-7.7) Lymphocytes # (Auto) 4.0 x10^3/uL (1.0-4.8) Monocytes # (Auto) 0.9 x10^3/uL (0.0-1.1) Eosinophils # (Auto) 0.2 x10^3/uL (0.0-0.7) Basophils # (Auto) 0.1 x10^3/uL (0.0-0.2) Sodium Level 138 mmol/L (136-145) Potassium Level 4.2 mmol/L (3.5-5.1) Chloride Level 104 mmol/L (98-107) Carbon Dioxide Level 25 mmol/L (21-32) Anion Gap 9 (6-14) Blood Urea Nitrogen 12 mg/dL (7-20) Creatinine 0.8 mg/dL (0.6-1.0) Estimated GFR (Cockcroft-Gault) 72.7 BUN/Creatinine Ratio 15 (6-20) Glucose Level 80 mg/dL (70-99) Calcium Level 9.2 mg/dL (8.5-10.1) Total Bilirubin 0.3 mg/dL (0.2-1.0) Aspartate Amino Transferase (AST) 21 U/L (15-37) Alanine Aminotransferase (ALT) 33 U/L (14-59) Alkaline Phosphatase 60 U/L (46-116) Ammonia < 10 mcmol/L (11-34) L Total Protein 6.7 g/dL (6.4-8.2) Albumin 2.9 g/dL (3.4-5.0) L Albumin/Globulin Ratio 0.8 (1.0-1.7) L Valproic Acid Level 68 mcg/mL (50-100) Valproic Acid Last Dose Date 03/02/20 Valproic Acid Last Dose Time 2100 Glucose (Fingerstick) 80 mg/dL (70-99) 113 mg/dL (70-99) H Current Medications: I have reviewed the current psychotropics carefully including drug interactions. Risk benefit ratio favors no change other than as noted in my dictated progress note. Diagnosis: Problems: (1) Major neurocognitive disorder, due to vascular disease, with behavioral disturbance, mild (2) Dementia in Alzheimer's disease with delusions (3) Dementia in Alzheimer's disease with depression (4) Dementia, vascular, with delusions (5) Impulse control disorder, unspecified (6) Dementia, vascular, with depression (7) Anxiety disorder, unspecified KISHAN BECK MD Mar 03, 2020 22:23
--- NOTE | 2020-03-03 23:14 | NUR ---
Pt sitting up in Broda chair in the day room at shift change. Pt anxious and tearful, disorganized. Pt cooperative with assessment and compliant with medications administered crushed in honey thickened water.
[2020-03-04] MEDS: LEVOTHYROXINE 25 MCG TABLET. PO SCH (05:43)
[2020-03-04 06:24] VITALS: BP 119/82
[2020-03-04] MEDS: metFORMIN 500 MG TABLET PO SCH ×2 (08:00→16:57)
--- NOTE | 2020-03-04 09:14 | PDOC ---
Exam Note: Gary Note: This note is a late entry for 03/02/2020 covers elements not covered in my initial note. Subjective: The patient was seen individually in the evening of 03/02/2020. Per Radha DUTTA, she slept 5-1/2 hours previous night. Her appetite is 25%. She continues to have mood lability, occasional crying, whimpering but better than before. Review of Systems: Ambulation impaired in Broda chair. No CV, , pulmonary, eye, ENT system symptoms on review. Mental Status Exam: Oriented to herself. Insight and judgment, recent and remote memory, attention and concentration, fund of knowledge is poor consistent with her diagnoses. Laboratory Data: Reviewed. Impression: Major neurocognitive disorder, Alzheimer, vascular with delusions, depression and behavioral disturbance. Anxiety disorder unspecified. Impulse control disorder unspecified. Plan: No change from initial note. Assessment: Vital Signs/I&O: Vital Signs Date Time Temp Pulse Resp B/P (MAP) Pulse Ox O2 Delivery O2 Flow Rate FiO2 03/04/20 06:24 97.6 88 22 119/82 (94) 96 03/03/20 05:55 Room Air I & O 03/03/20 03/03/20 03/04/20 14:59 22:59 06:59 Intake Total 60 ml 240 ml 30 ml Output Total 550 ml Balance 60 ml 240 ml -520 ml Labs: Laboratory Tests Test 03/03/20 17:16 03/03/20 19:12 03/04/20 07:56 Glucose (Fingerstick) 80 mg/dL (70-99) 113 mg/dL (70-99) H 78 mg/dL (70-99) Current Medications: I have reviewed the current psychotropics carefully including drug interactions. Risk benefit ratio favors no change other than as noted in my dictated progress note. Diagnosis: Problems: (1) Impulse control disorder, unspecified (2) Anxiety disorder, unspecified (3) Dementia, vascular, with depression (4) Dementia, vascular, with delusions (5) Dementia in Alzheimer's disease with depression (6) Dementia in Alzheimer's disease with delusions (7) Major neurocognitive disorder, due to vascular disease, with behavioral di sturbance, mild KISHAN BECK MD Mar 04, 2020 09:14
--- NOTE | 2020-03-04 09:46 | NUR ---
WEEKLY NOTE: Pt dtr, Asia, participated in tx team via phone. Pt is eating less than 50% of meals and sleeping on average 6 hours at night. Pt continues to be restless, anxious and very tearful. Pt has come to group more but does not have much attendance. Dr. Hedrick did start a little bit of Gabapentin to aid in potential nerve pain as pt appears to jerk and reach out to her left side. Pt is on Depakote 750mg Bid, Seroquel 12.5mg BID and Wellbutrin 100mg BID. Her complete blood count is unremarkable and appears to physically be very healthy. We can get Dr. Finch to see pt just to double check and make sure nothing else is being missed. MARY will be for the latter part of next.
[2020-03-04] MEDS: DIVALPROEX 125 MG CAP.SPRINK PO SCH ×2 (09:58→20:10)
[2020-03-04] MEDS: FAMOTIDINE 20 MG TABLET PO SCH (09:59)
[2020-03-04] MEDS: GABAPENTIN 100 MG CAPSULE. PO SCH (09:59)
[2020-03-04] MEDS: QUEtiapine 25 MG TABLET. PO SCH ×2 (09:59→13:03)
[2020-03-04] MEDS: POTASSIUM CHLORIDE 20 MEQ TABLET.ER. PO SCH ×2 (09:59→20:10)
[2020-03-04] MEDS: buPROPion 100 MG TABLET PO SCH ×2 (09:59→12:58)
[2020-03-04] MEDS: LISINOPRIL 10 MG TABLET PO SCH (10:00)
[2020-03-04] MEDS: CHOLECALCIFEROL (VITAMIN D3) 50,000 UNIT CAPSULE PO SCH (10:05)
[2020-03-04] MEDS: GABAPENTIN 250 MG/5 ML ORAL SOLUTION. PO SCH (10:30)
--- NOTE | 2020-03-04 11:33 | NUR ---
WEEKLY ACTIVITY THERAPY NOTE Date of Admission: 02/11/20 Date of AT Assessment: 02/14/20 Precipitating behaviors that initiated intake and admission: Patient was reportedly for agitation, aggression, scared, unable to settle, skin picking, and had six falls in a 24hour period. Goal aimed: to increase recreation education and socialization Initial Goal: Pt will engage In at least three individual/group activity therapy sessions per week Goal changed 02/18: pt. will participate in at least one individual/ group Activity Therapy session per week. Goal changed 02/25: Pt. will participate in at least one individual/group activity therapy session before discharge Weekly progress towards goal: on track Group participation level: zero Weekly highlights: around group half the time this week Behaviors observed: laying on right side, restless and tearful but more calm in her chair, difficult to get engaged in groups Plan: no change to goal Beneficial adaptations: sensory stimulation possibly
--- NOTE | 2020-03-04 14:00 | NUR ---
Patient has been restless, tearful, confused. Not able to verbalize concerns. Not eating well, difficult to administer meds due to patient not opening mouth very wide and patient is a bit reluctant to take the meds crushed in pudding as it appears pt does not like the taste.
[2020-03-04 15:52] VITALS: BP 100/66
[2020-03-04] MEDS: traZODone 50 MG TABLET. PO SCH (20:10)
[2020-03-04] MEDS: MELATONIN 3 MG TABLET PO SCH (20:10)
[2020-03-04] MEDS: ATORVASTATIN CALCIUM 20 MG TABLET PO SCH (20:10)
--- NOTE | 2020-03-04 22:17 | PDOC ---
Exam Note: Gary Note: Please also refer to the separate dictated note~for this date of service dictated separately.~Patient seen individually. Discussed the patient with Nursing staff reviewed the chart.~Reviewed interim history and current functioning. Reviewed vital signs,~Labs/ Radiology~and current medications noted below. Continue current treatment with the changes noted in the dictated addendum note Assessment: Vital Signs/I&O: Vital Signs Date Time Temp Pulse Resp B/P (MAP) Pulse Ox O2 Delivery O2 Flow Rate FiO2 03/04/20 15:52 97.3 81 20 100/66 (77) 93 Room Air I & O 03/03/20 03/03/20 03/04/20 15:00 23:00 07:00 Intake Total 60 ml 240 ml 30 ml Output Total 550 ml Balance 60 ml 240 ml -520 ml Labs: Laboratory Tests Test 03/04/20 07:56 03/04/20 19:13 Glucose (Fingerstick) 78 mg/dL (70-99) 140 mg/dL (70-99) H Current Medications: I have reviewed the current psychotropics carefully including drug interactions. Risk benefit ratio favors no change other than as noted in my dictated progress note. Diagnosis: Problems: (1) Impulse control disorder, unspecified (2) Anxiety disorder, unspecified (3) Dementia, vascular, with depression (4) Dementia, vascular, with delusions (5) Dementia in Alzheimer's disease with depression (6) Dementia in Alzheimer's disease with delusions (7) Major neurocognitive disorder, due to vascular disease, with behavioral disturbance, mild KISHAN BECK MD Mar 04, 2020 22:17
--- NOTE | 2020-03-04 22:53 | NUR ---
Pt sitting up in Broda chair in the day room at shift change. Pt anxious and tearful, disorganized. Pt cooperative with assessment and compliant with medications administered crushed in orange sherbert/vanilla Ensure shake.
[2020-03-05] MEDS: LEVOTHYROXINE 25 MCG TABLET. PO SCH (04:55)
[2020-03-05 06:24] VITALS: BP 111/66
[2020-03-05] MEDS: LISINOPRIL 10 MG TABLET PO SCH (08:41)
[2020-03-05] MEDS: NYSTATIN 100,000 UNIT/GM TOPICAL CREAM 15GM TUBE. TP SCH ×2 (09:00→20:59)
[2020-03-05] MEDS: QUEtiapine 25 MG TABLET. PO SCH ×2 (12:28→13:00)
[2020-03-05] MEDS: buPROPion 100 MG TABLET PO SCH ×2 (12:29→13:00)
[2020-03-05] MEDS: POTASSIUM CHLORIDE 20 MEQ TABLET.ER. PO SCH ×2 (12:29→20:58)
[2020-03-05] MEDS: metFORMIN 500 MG TABLET PO SCH ×2 (12:29→17:33)
[2020-03-05] MEDS: FAMOTIDINE 20 MG TABLET PO SCH (12:29)
[2020-03-05] MEDS: GABAPENTIN 250 MG/5 ML ORAL SOLUTION. PO SCH (12:30)
[2020-03-05] MEDS: DIVALPROEX 125 MG CAP.SPRINK PO SCH (12:30)
[2020-03-05] MEDS: NYSTATIN TOPICAL POWDER 15GM BOTTLE. TP SCH ×2 (12:30→12:31)
--- NOTE | 2020-03-05 14:29 | NUR ---
Pt slept in until about 1130. Pt took medications crushed in applesauce. Pt still not opening mouth very wide to eat. Did well taking liquid gabapentin from syringe. Pt face is depressed, did cry out a few times. Not as tearful today. WCTM.
[2020-03-05 15:37] VITALS: BP 102/80
[2020-03-05] MEDS: VALPROATE ACID 250 MG/5 ML ORAL SOLUTION PO SCH (20:58)
[2020-03-05] MEDS: traZODone 50 MG TABLET. PO SCH (20:58)
[2020-03-05] MEDS: ATORVASTATIN CALCIUM 20 MG TABLET PO SCH (20:58)
[2020-03-05] MEDS: MELATONIN 3 MG TABLET PO SCH (20:58)
[2020-03-05 21:01] LABS: BILIRUBIN,URINE NEG (NEG); CLARITY,URINE TURBID; COLOR,URINE YELLOW; GLUCOSE,URINE NEG (NEG); NITRITE,URINE POS (NEG)
[2020-03-05 21:02] LABS: BACTERIA,URINE MANY /HPF (0-FEW); SQUAMOUS EPITHELIAL CELL,UR OCC /LPF; WBC,URINE >40 /HPF (0-4)
[2020-03-05 21:03] LABS: AMORPHOUS SEDIMENT,UR PRESENT /HPF
--- NOTE | 2020-03-05 22:27 | PDOC ---
Exam Note: Gary Note: Please also refer to the separate dictated note~for this date of service dictated separately.~Patient seen individually. Discussed the patient with Nursing staff reviewed the chart.~Reviewed interim history and current functioning. Reviewed vital signs,~Labs/ Radiology~and current medications noted below. Continue current treatment with the changes noted in the dictated addendum note Assessment: Vital Signs/I&O: Vital Signs Date Time Temp Pulse Resp B/P (MAP) Pulse Ox O2 Delivery O2 Flow Rate FiO2 03/05/20 15:37 98.0 104 22 102/80 (87) 99 03/05/20 06:24 Room Air I & O 03/04/20 03/04/20 03/05/20 15:00 23:00 07:00 Intake Total 60 ml 240 ml 80 ml Output Total 500 ml Balance 60 ml 240 ml -420 ml Labs: Laboratory Tests Test 03/05/20 07:39 03/05/20 17:06 03/05/20 19:16 03/05/20 20:20 Glucose (Fingerstick) 88 mg/dL (70-99) 82 mg/dL (70-99) 105 mg/dL (70-99) H Urine Collection Type Unknown Urine Color Yellow Urine Clarity Turbid Urine pH 8.5 Urine Specific [place] 1.020 Urine Protein >100 mg/dl (NEG-TRACE) Urine Glucose (UA) Neg mg/dL (NEG) Urine Ketones (Stick) 40 mg/dL (NEG) Urine Blood Small (NEG) Urine Nitrite Pos (NEG) Urine Bilirubin Neg (NEG) Urine Urobilinogen Dipstick 1.0 mg/dL (0.2 mg/dL) Urine Leukocyte Esterase Small (NEG) Urine RBC 3-5 /HPF (0-2) Urine WBC >40 /HPF (0-4) Urine Squamous Epithelial Cells Occ /LPF Urine Amorphous Sediment Present /HPF Urine Bacteria Many /HPF (0-FEW) Current Medications: Meds: Current Medications Medications (Trade) Dose Ordered Sig/Britta Route PRN Reason Start Time Stop Time Status Last Admin Dose Admin Nystatin (Mycostatin) 1 laura BID TP 03/05/20 09:00 03/05/20 09:00 Valproic Acid (Depakene) 750 mg BID PO 03/05/20 21:00 03/05/20 20:58 I have reviewed the current psychotropics carefully including drug interactions. Risk benefit ratio favors no change other than as noted in my dictated progress note. Diagnosis: Problems: (1) Impulse control disorder, unspecified (2) Anxiety disorder, unspecified (3) Dementia, vascular, with depression (4) Dementia, vascular, with delusions (5) Dementia in Alzheimer's disease with depression (6) Dementia in Alzheimer's disease with delusions (7) Major neurocognitive disorder, due to vascular disease, with behavioral disturbance, mild KISHAN BECK MD Mar 05, 2020 22:27
--- NOTE | 2020-03-05 23:56 | NUR ---
Pt located in dayroom. Pt restless and tearful this evening. Compliant with crushed medications. Pt currently sleeping in bed.
[2020-03-06] MEDS: LEVOTHYROXINE 25 MCG TABLET. PO SCH (05:16)
[2020-03-06 06:48] VITALS: BP 150/69
--- NOTE | 2020-03-06 07:14 | PDOC ---
Exam Note: Gary Note: This note is a late entry for 03/03/2020 covers elements not covered in my initial note. Subjective: The patient was seen individually in the evening of 03/03/2020. Per Radah DUTTA, she slept 7 hours previous night and 5 hours morning of . She remains withdrawn in her Broda chair. Blood pressure is 80/60 mmHg. Seroquel was held due to low blood pressure. Review of Systems: Ambulation impaired in Broda chair. No CV, , pulmonary, eye, ENT system symptoms on review. Reliability poor. Mental Status Exam: Oriented to herself. Insight and judgment, recent and remote memory, attention and concentration, fund of knowledge is poor consistent with her diagnoses. Laboratory Data: Reviewed. Impression: Major neurocognitive disorder, Alzheimer, vascular with delusions, depression and behavioral disturbance. Anxiety disorder unspecified. Impulse control disorder unspecified. Plan: We will check valproic acid level, CBC, CMP and ammonia level morning of 03/04. Make further adjustments as clinically indicated. Valproic acid level is 68 on 03/03. Assessment: Vital Signs/I&O: Vital Signs Date Time Temp Pulse Resp B/P (MAP) Pulse Ox O2 Delivery O2 Flow Rate FiO2 03/06/20 06:48 97.4 99 16 150/69 (96) 96 03/05/20 06:24 Room Air I & O 03/05/20 03/05/20 03/06/20 15:00 23:00 07:00 Intake Total 240 ml 340 ml Output Total 250 ml 125 ml Balance 240 ml 90 ml -125 ml Labs: Laboratory Tests Test 03/05/20 07:39 03/05/20 17:06 03/05/20 19:16 03/05/20 20:20 Glucose (Fingerstick) 88 mg/dL (70-99) 82 mg/dL (70-99) 105 mg/dL (70-99) H Urine Collection Type Unknown Urine Color Yellow Urine Clarity Turbid Urine pH 8.5 Urine Specific [place] 1.020 Urine Protein >100 mg/dl (NEG-TRACE) Urine Glucose (UA) Neg mg/dL (NEG) Urine Ketones (Stick) 40 mg/dL (NEG) Urine Blood Small (NEG) Urine Nitrite Pos (NEG) Urine Bilirubin Neg (NEG) Urine Urobilinogen Dipstick 1.0 mg/dL (0.2 mg/dL) Urine Leukocyte Esterase Small (NEG) Urine RBC 3-5 /HPF (0-2) Urine WBC >40 /HPF (0-4) Urine Squamous Epithelial Cells Occ /LPF Urine Amorphous Sediment Present /HPF Urine Bacteria Many /HPF (0-FEW) Current Medications: Meds: Current Medications Medications (Trade) Dose Ordered Sig/Britta Route PRN Reason Start Time Stop Time Status Last Admin Dose Admin Nystatin (Mycostatin) 1 laura BID TP 03/05/20 09:00 03/05/20 09:00 Valproic Acid (Depakene) 750 mg BID PO 03/05/20 21:00 03/05/20 20:58 I have reviewed the current psychotropics carefully including drug interactions. Risk benefit ratio favors no change other than as noted in my dictated progress note. Diagnosis: Problems: (1) Impulse control disorder, unspecified (2) Anxiety disorder, unspecified (3) Dementia, vascular, with depression (4) Dementia, vascular, with delusions (5) Dementia in Alzheimer's disease with depression (6) Dementia in Alzheimer's disease with delusions (7) Major neurocognitive disorder, due to vascular disease, with behavioral disturbance, mild KISHAN BECK MD Mar 06, 2020 07:14
--- NOTE | 2020-03-06 07:44 | PDOC ---
Exam Note: Gary Note: This note is a late entry for 03/04/2020 covers elements not covered in my initial note. Subjective: The patient was seen individually in the morning of 03/04/2020 with treatment team meeting with Fany (social service staff), [facility] staff and patients daughter Asia attended. She is sleeping 6 hours average. Appetite is 30%. Dr. Finch, Neurology has been consulted. Discussed with Elizabeth DUTTA in the evening. She has had a labile mood, poor oral intake. Review of Systems: Ambulation impaired in Broda chair. No CV, , pulmonary, eye, ENT system symptoms on review. Mental Status Exam: Oriented to herself. Insight and judgment, recent and remote memory, attention and concentration, fund of knowledge is poor consistent with her diagnoses. Laboratory Data: Reviewed. Impression: Major neurocognitive disorder, Alzheimer, vascular with delusions, depression and behavioral disturbance. Anxiety disorder unspecified. Impulse control disorder unspecified. Plan: No change from initial note. Check CBC and CMP. Nursing staff wonder whether some of the pain worsens her agitation, we will start gabapentin 300 mg a.m. which should also help with her anxiety. We will repeat valproic acid level on 03/04. Adjust further as clinically indicated. Assessment: Vital Signs/I&O: Vital Signs Date Time Temp Pulse Resp B/P (MAP) Pulse Ox O2 Delivery O2 Flow Rate FiO2 03/06/20 06:48 97.4 99 16 150/69 (96) 96 03/05/20 06:24 Room Air I & O 03/05/20 03/05/20 03/06/20 15:00 23:00 07:00 Intake Total 240 ml 340 ml Output Total 250 ml 125 ml Balance 240 ml 90 ml -125 ml Labs: Laboratory Tests Test 03/05/20 17:06 03/05/20 19:16 03/05/20 20:20 Glucose (Fingerstick) 82 mg/dL (70-99) 105 mg/dL (70-99) H Urine Collection Type Unknown Urine Color Yellow Urine Clarity Turbid Urine pH 8.5 Urine Specific [place] 1.020 Urine Protein >100 mg/dl (NEG-TRACE) Urine Glucose (UA) Neg mg/dL (NEG) Urine Ketones (Stick) 40 mg/dL (NEG) Urine Blood Small (NEG) Urine Nitrite Pos (NEG) Urine Bilirubin Neg (NEG) Urine Urobilinogen Dipstick 1.0 mg/dL (0.2 mg/dL) Urine Leukocyte Esterase Small (NEG) Urine RBC 3-5 /HPF (0-2) Urine WBC >40 /HPF (0-4) Urine Squamous Epithelial Cells Occ /LPF Urine Amorphous Sediment Present /HPF Urine Bacteria Many /HPF (0-FEW) Current Medications: Meds: Current Medications Medications (Trade) Dose Ordered Sig/Britta Route PRN Reason Start Time Stop Time Status Last Admin Dose Admin Nystatin (Mycostatin) 1 laura BID TP 03/05/20 09:00 03/05/20 09:00 Valproic Acid (Depakene) 750 mg BID PO 03/05/20 21:00 03/05/20 20:58 I have reviewed the current psychotropics carefully including drug interactions. Risk benefit ratio favors no change other than as noted in my dictated progress note. Diagnosis: Problems: (1) Impulse control disorder, unspecified (2) Anxiety disorder, unspecified (3) Dementia, vascular, with depression (4) Dementia, vascular, with delusions (5) Dementia in Alzheimer's disease with depression (6) Dementia in Alzheimer's disease with delusions (7) Major neurocognitive disorder, due to vascular disease, with behavioral disturbance, mild KISHAN BECK MD Mar 06, 2020 07:44
[2020-03-06] MEDS: metFORMIN 500 MG TABLET PO SCH ×2 (09:37→17:00)
[2020-03-06] MEDS: POTASSIUM CHLORIDE 20 MEQ TABLET.ER. PO SCH ×2 (09:37→20:12)
[2020-03-06] MEDS: VALPROATE ACID 250 MG/5 ML ORAL SOLUTION PO SCH ×2 (09:37→20:13)
[2020-03-06] MEDS: GABAPENTIN 250 MG/5 ML ORAL SOLUTION. PO SCH (09:38)
[2020-03-06] MEDS: FAMOTIDINE 20 MG TABLET PO SCH (09:38)
[2020-03-06] MEDS: LISINOPRIL 10 MG TABLET PO SCH (09:38)
[2020-03-06] MEDS: QUEtiapine 25 MG TABLET. PO SCH ×2 (09:38→13:00)
[2020-03-06] MEDS: buPROPion 100 MG TABLET PO SCH ×2 (09:39→13:00)
[2020-03-06] MEDS: NYSTATIN 100,000 UNIT/GM TOPICAL CREAM 15GM TUBE. TP SCH ×2 (09:39→20:13)
--- NOTE | 2020-03-06 13:02 | NUR ---
Pt is calm, cooperative, compliant, confused and drowsy. She is easily arousable to stimuli. VSS. No agitation or aggression. Pt is compliant with medication and assessment.
[2020-03-06 16:03] VITALS: BP 103/73
--- NOTE | 2020-03-06 17:33 | NUR ---
Afternoon and dinner meds held d/t drowsiness. Pt is arousable to stimuli. VSS. Dr. Nash mccray.
[2020-03-06] MEDS ORDERED: ZINC OXIDE 20% TOPICAL OINTMENT 28GM TUBE. TP PRN (19:00)
[2020-03-06] MEDS: MELATONIN 3 MG TABLET PO SCH (20:12)
[2020-03-06] MEDS: traZODone 50 MG TABLET. PO SCH (20:12)
[2020-03-06] MEDS: ATORVASTATIN CALCIUM 20 MG TABLET PO SCH (20:12)
--- NOTE | 2020-03-06 22:17 | PDOC ---
Exam Note: Gary Note: Please also refer to the separate dictated note~for this date of service dictated separately.~Patient seen individually. Discussed the patient with Nursing staff reviewed the chart.~Reviewed interim history and current functioning. Reviewed vital signs,~Labs/ Radiology~and current medications noted below. Continue current treatment with the changes noted in the dictated addendum note Assessment: Vital Signs/I&O: Vital Signs Date Time Temp Pulse Resp B/P (MAP) Pulse Ox O2 Delivery O2 Flow Rate FiO2 03/06/20 16:03 98.7 78 18 103/73 (83) 95 03/05/20 06:24 Room Air I & O 03/05/20 03/05/20 03/06/20 15:00 23:00 07:00 Intake Total 240 ml 340 ml Output Total 250 ml 125 ml Balance 240 ml 90 ml -125 ml Labs: Laboratory Tests Test 03/06/20 08:19 03/06/20 11:58 03/06/20 19:50 Glucose (Fingerstick) 91 mg/dL (70-99) 89 mg/dL (70-99) 77 mg/dL (70-99) Current Medications: I have reviewed the current psychotropics carefully including drug interactions. Risk benefit ratio favors no change other than as noted in my dictated progress note. Diagnosis: Problems: (1) Impulse control disorder, unspecified (2) Anxiety disorder, unspecified (3) Dementia, vascular, with depression (4) Dementia, vascular, with delusions (5) Dementia in Alzheimer's disease with depression (6) Dementia in Alzheimer's disease with delusions (7) Major neurocognitive disorder, due to vascular disease, with behavioral disturbance, mild KISHAN BECK MD Mar 06, 2020 22:17
--- NOTE | 2020-03-06 23:55 | NUR ---
Pt awake in broda chair in dayroom this evening. Tearful and restless. Compliant with medications. Consumed Ensure and juice during snack time.
[2020-03-07] MEDS: LEVOTHYROXINE 25 MCG TABLET. PO SCH (05:10)
[2020-03-07 06:41] VITALS: BP 103/71
--- NOTE | 2020-03-07 07:18 | PDOC ---
Exam Note: Gary Note: This note is a late entry for 03/05/2020 covers elements not covered in my initial note. Subjective: The patient was seen individually in the evening of 03/05/2020. Per Radha DUTTA, she slept 4-3/4 hours previous night and 5 hours next morning, total of about 10 hours. She is less tearful, less verbal, confused. Review of Systems: Ambulation impaired in Broda chair. No CV, , pulmonary, eye, ENT system symptoms on review. Mental Status Exam: Oriented to herself. Insight and judgment, recent and remote memory, attention and concentration, fund of knowledge is poor consistent with her diagnoses. Laboratory Data: Reviewed. Impression: Major neurocognitive disorder, Alzheimer, vascular with delusions, depression and behavioral disturbance. Anxiety disorder unspecified. Impulse control disorder unspecified. Plan: No change from initial note. Assessment: Vital Signs/I&O: Vital Signs Date Time Temp Pulse Resp B/P (MAP) Pulse Ox O2 Delivery O2 Flow Rate FiO2 03/07/20 06:41 97.9 90 22 103/71 (82) 100 03/05/20 06:24 Room Air I & O 03/06/20 03/06/20 03/07/20 15:00 23:00 07:00 Intake Total 0 ml 0 ml 420 ml Output Total 200 ml 350 ml Balance 0 ml -200 ml 70 ml Labs: Laboratory Tests Test 03/06/20 08:19 03/06/20 11:58 03/06/20 19:50 Glucose (Fingerstick) 91 mg/dL (70-99) 89 mg/dL (70-99) 77 mg/dL (70-99) Current Medications: I have reviewed the current psychotropics carefully including drug interactions. Risk benefit ratio favors no change other than as noted in my dictated progress note. Diagnosis: Problems: (1) Impulse control disorder, unspecified (2) Anxiety disorder, unspecified (3) Dementia, vascular, with depression (4) Dementia, vascular, with delusions (5) Dementia in Alzheimer's disease with depression (6) Dementia in Alzheimer's disease with delusions (7) Major neurocognitive disorder, due to vascular disease, with behavioral disturbance, mild KISHAN BECK MD Mar 07, 2020 07:18
--- NOTE | 2020-03-07 07:39 | PDOC ---
Exam Note: Gary Note: This note is a late entry for 03/06/2020 covers elements not covered in my initial note. Subjective: The patient was seen individually in the evening of 03/06/2020. Per Arlene DUTTA, she slept 6-3/4 hours previous night. She is somewhat anxious, crying at times. Urine has reflex to culture, somewhat sedated at times. Wellbutrin and Seroquel at 1 p.m. was held due to sedation. Review of Systems: Ambulation impaired in Broda chair. No CV, , pulmonary, eye, ENT system symptoms on review. Reliability poor. Mental Status Exam: Oriented to herself. Insight and judgment, recent and remote memory, attention and concentration, fund of knowledge is poor consistent with her diagnoses. Laboratory Data: Reviewed. Impression: Major neurocognitive disorder, Alzheimer, vascular with delusions, depression and behavioral disturbance. Anxiety disorder unspecified. Impulse control disorder unspecified. Plan: We will await the urine C&S and treat it once positive since this could be worsening her agitation. Psychotropics are being stabilized. Assessment: Vital Signs/I&O: Vital Signs Date Time Temp Pulse Resp B/P (MAP) Pulse Ox O2 Delivery O2 Flow Rate FiO2 03/07/20 06:41 97.9 90 22 103/71 (82) 100 03/05/20 06:24 Room Air I & O 03/06/20 03/06/20 03/07/20 15:00 23:00 07:00 Intake Total 0 ml 0 ml 420 ml Output Total 200 ml 350 ml Balance 0 ml -200 ml 70 ml Labs: Laboratory Tests Test 03/06/20 08:19 03/06/20 11:58 03/06/20 19:50 Glucose (Fingerstick) 91 mg/dL (70-99) 89 mg/dL (70-99) 77 mg/dL (70-99) Current Medications: I have reviewed the current psychotropics carefully including drug interactions. Risk benefit ratio favors no change other than as noted in my dictated progress note. Diagnosis: Problems: (1) Impulse control disorder, unspecified (2) Anxiety disorder, unspecified (3) Dementia, vascular, with depression (4) Dementia, vascular, with delusions (5) Dementia in Alzheimer's disease with depression (6) Dementia in Alzheimer's disease with delusions (7) Major neurocognitive disorder, due to vascular disease, with behavioral disturbance, mild KISHAN BECK MD Mar 07, 2020 07:39
[2020-03-07] MEDS: metFORMIN 500 MG TABLET PO SCH ×2 (10:00→17:00)
[2020-03-07] MEDS: POTASSIUM CHLORIDE 20 MEQ TABLET.ER. PO SCH ×2 (10:02→20:46)
[2020-03-07] MEDS: VALPROATE ACID 250 MG/5 ML ORAL SOLUTION PO SCH ×2 (10:02→20:46)
[2020-03-07] MEDS: buPROPion 100 MG TABLET PO SCH ×2 (10:03→12:22)
[2020-03-07] MEDS: LISINOPRIL 10 MG TABLET PO SCH (10:03)
[2020-03-07] MEDS: FAMOTIDINE 20 MG TABLET PO SCH (10:03)
[2020-03-07] MEDS: NYSTATIN 100,000 UNIT/GM TOPICAL CREAM 15GM TUBE. TP SCH ×2 (10:03→20:48)
[2020-03-07] MEDS: QUEtiapine 25 MG TABLET. PO SCH ×2 (10:03→12:22)
[2020-03-07] MEDS: GABAPENTIN 250 MG/5 ML ORAL SOLUTION. PO SCH (10:03)
--- NOTE | 2020-03-07 11:32 | NUR ---
Pt is calm, cooperative, compliant, confused. No agitation or aggression. Pt is compliant with medication and assessment.
[2020-03-07 16:34] VITALS: BP 115/75
[2020-03-07] MEDS: traZODone 50 MG TABLET. PO SCH (20:46)
[2020-03-07] MEDS: LACTOBACILLUS RHAMNOSUS GG 1 CAPSULE. PO SCH (20:46)
[2020-03-07] MEDS: MELATONIN 3 MG TABLET PO SCH (20:46)
[2020-03-07] MEDS: ATORVASTATIN CALCIUM 20 MG TABLET PO SCH (20:46)
[2020-03-07] MEDS: AMOXICILLIN/K CLAV 875/125MG TABLET. PO SCH (20:46)
--- NOTE | 2020-03-07 22:01 | RAD ---
Exam: Chest one view INDICATION: Possible aspiration TECHNIQUE: Frontal view of the chest Comparisons: None FINDINGS: The cardiomediastinal silhouette and pulmonary vessels are within normal limits. The lung and pleural spaces are clear. IMPRESSION: No acute cardiopulmonary process. Electronically signed by: Myles Quintero MD (03/07/2020 9:58 PM) [id number]
--- NOTE | 2020-03-07 22:22 | PDOC ---
Exam Note: Gary Note: Please also refer to the separate dictated note~for this date of service dictated separately.~Patient seen individually. Discussed the patient with Nursing staff reviewed the chart.~Reviewed interim history and current functioning. Reviewed vital signs,~Labs/ Radiology~and current medications noted below. Continue current treatment with the changes noted in the dictated addendum note Assessment: Vital Signs/I&O: Vital Signs Date Time Temp Pulse Resp B/P (MAP) Pulse Ox O2 Delivery O2 Flow Rate FiO2 03/07/20 16:34 98.5 93 20 115/75 (88) 95 03/05/20 06:24 Room Air I & O 03/06/20 03/06/20 03/07/20 15:00 23:00 07:00 Intake Total 0 ml 0 ml 420 ml Output Total 200 ml 350 ml Balance 0 ml -200 ml 70 ml Labs: Laboratory Tests Test 03/07/20 08:11 03/07/20 19:10 Glucose (Fingerstick) 82 mg/dL (70-99) 165 mg/dL (70-99) H Current Medications: Meds: Current Medications Medications (Trade) Dose Ordered Sig/Britta Route PRN Reason Start Time Stop Time Status Last Admin Dose Admin Amoxicillin/ Clavulanate Potassium (Augmentin 875/ 125mg) 1 tab BID PO 03/07/20 21:00 03/07/20 20:46 Lactobacillus Rhamnosus (Culturelle) 1 cap BID PO 03/07/20 21:00 03/07/20 20:46 I have reviewed the current psychotropics carefully including drug interactions. Risk benefit ratio favors no change other than as noted in my dictated progress note. Diagnosis: Problems: (1) Impulse control disorder, unspecified (2) Anxiety disorder, unspecified (3) Dementia, vascular, with depression (4) Dementia, vascular, with delusions (5) Dementia in Alzheimer's disease with depression (6) Dementia in Alzheimer's disease with delusions (7) Major neurocognitive disorder, due to vascular disease, with behavioral disturbance, mild KISHAN BECK MD Mar 07, 2020 22:22
--- NOTE | 2020-03-07 23:57 | NUR ---
Pt restless in broda chair. After medication administration, pt began coughing and choking. Pt vomited x1. Suction performed. Stat CXR ordered r/t possible aspiration. CXR negative. Pt currently resting in bed.
[2020-03-08] MEDS: LEVOTHYROXINE 25 MCG TABLET. PO SCH (05:02)
[2020-03-08 05:04] VITALS: BP 109/78
[2020-03-08] MEDS: LISINOPRIL 10 MG TABLET PO SCH (09:00)
[2020-03-08] MEDS: NYSTATIN 100,000 UNIT/GM TOPICAL CREAM 15GM TUBE. TP SCH ×2 (09:00→20:52)
[2020-03-08] MEDS: metFORMIN 500 MG TABLET PO SCH ×2 (09:29→17:00)
[2020-03-08] MEDS: QUEtiapine 25 MG TABLET. PO SCH ×2 (09:29→13:00)
[2020-03-08] MEDS: AMOXICILLIN/K CLAV 875/125MG TABLET. PO SCH ×2 (09:29→20:50)
[2020-03-08] MEDS: VALPROATE ACID 250 MG/5 ML ORAL SOLUTION PO SCH ×2 (09:29→20:50)
[2020-03-08] MEDS: LACTOBACILLUS RHAMNOSUS GG 1 CAPSULE. PO SCH ×2 (09:29→20:49)
[2020-03-08] MEDS: buPROPion 100 MG TABLET PO SCH ×2 (09:29→13:00)
[2020-03-08] MEDS: POTASSIUM CHLORIDE 20 MEQ TABLET.ER. PO SCH ×2 (09:29→20:51)
[2020-03-08] MEDS: FAMOTIDINE 20 MG TABLET PO SCH (09:29)
[2020-03-08] MEDS: GABAPENTIN 250 MG/5 ML ORAL SOLUTION. PO SCH (09:38)
[2020-03-08] MEDS: NYSTATIN TOPICAL POWDER 15GM BOTTLE. TP SCH (09:45)
--- NOTE | 2020-03-08 09:58 | PDOC ---
Exam Note: Gary Note: This note is a late entry for 03/07/2020 covers elements not covered in my initial note. Subjective: The patient was seen individually in the evening of 03/07/2020. Per Arlene DUTTA, the patient has been more alert during the day, but extremely labile in her mood, crying, whimpering. Urine C&S is greater than 100,000 Gram negative. Organism started on antibiotics per Dr. Salinas. She slept 7-3/4 hours previous night. Review of Systems: Ambulation impaired in Broda chair. No CV, , pulmonary, eye, ENT system symptoms on review. Reliability poor. Mental Status Exam: Oriented to herself. Insight and judgment, recent and remote memory, attention and concentration, fund of knowledge is poor consistent with her diagnoses. Laboratory Data: Reviewed. Impression: Major neurocognitive disorder, Alzheimer, vascular with delusions, depression and behavioral disturbance. Anxiety disorder unspecified. Impulse control disorder unspecified. Plan: No change from initial note. Assessment: Vital Signs/I&O: Vital Signs Date Time Temp Pulse Resp B/P (MAP) Pulse Ox O2 Delivery O2 Flow Rate FiO2 03/08/20 05:04 98.6 93 18 109/78 (88) 94 03/05/20 06:24 Room Air I & O 03/07/20 03/07/20 03/08/20 15:00 23:00 07:00 Intake Total 0 ml 40 ml Output Total 700 ml Balance 0 ml 40 ml -700 ml Labs: Laboratory Tests Test 03/07/20 19:10 03/08/20 07:29 Glucose (Fingerstick) 165 mg/dL (70-99) H 99 mg/dL (70-99) Current Medications: Meds: Current Medications Medications (Trade) Dose Ordered Sig/Britta Route PRN Reason Start Time Stop Time Status Last Admin Dose Admin Amoxicillin/ Clavulanate Potassium (Augmentin 875/ 125mg) 1 tab BID PO 03/07/20 21:00 03/08/20 09:29 Lactobacillus Rhamnosus (Culturelle) 1 cap BID PO 03/07/20 21:00 03/08/20 09:29 I have reviewed the current psychotropics carefully including drug interactions. Risk benefit ratio favors no change other than as noted in my dictated progress note. Diagnosis: Problems: (1) Impulse control disorder, unspecified (2) Anxiety disorder, unspecified (3) Dementia, vascular, with depression (4) Dementia, vascular, with delusions (5) Dementia in Alzheimer's disease with depression (6) Dementia in Alzheimer's disease with delusions (7) Major neurocognitive disorder, due to vascular disease, with behavioral disturbance, mild KISHAN BECK MD Mar 08, 2020 09:58
[2020-03-08 16:46] VITALS: BP 114/92
--- NOTE | 2020-03-08 18:30 | NUR ---
Pt up in broda chair for most of day. Difficult to administer meds. Pt will not open mouth enough to get bites of pudding in easily. Pt did not eat well today. Pt has been sleeping most of day. Dr Cao aware and decreasing meds. Pt is currently getting treated for UTI, urine still has a lot of sediment and has very foul odor. WCTM.
[2020-03-08 19:04] LABS: HEMATOCRIT 45.7 % (36.0-47.0); HEMOGLOBIN 15.2 g/dL (12.0-15.5); RED BLOOD COUNT 4.86 x10^6/uL (3.50-5.40); RED CELL DISTRIBUTION WIDTH 14.4 % (11.5-14.5); WHITE BLOOD COUNT 9.8 x10^3/uL (4.0-11.0)
[2020-03-08 19:12] LABS: ALBUMIN 2.9 g/dL (3.4-5.0); ALBUMIN/GLOBULIN RATIO 0.6 (1.0-1.7); CALCIUM 9.7 mg/dL (8.5-10.1); CREATININE 0.6 mg/dL (0.6-1.0); GFR 101.3; TOTAL BILIRUBIN 0.3 mg/dL (0.2-1.0); TOTAL PROTEIN 7.5 g/dL (6.4-8.2)
[2020-03-08] MEDS: MELATONIN 3 MG TABLET PO SCH (20:49)
[2020-03-08] MEDS: traZODone 50 MG TABLET. PO SCH (20:49)
[2020-03-08] MEDS: ATORVASTATIN CALCIUM 20 MG TABLET PO SCH (20:52)
--- NOTE | 2020-03-08 22:19 | PDOC ---
Exam Note: Gary Note: Please also refer to the separate dictated note~for this date of service dictated separately.~Patient seen individually. Discussed the patient with Nursing staff reviewed the chart.~Reviewed interim history and current functioning. Reviewed vital signs,~Labs/ Radiology~and current medications noted below. Continue current treatment with the changes noted in the dictated addendum note Assessment: Vital Signs/I&O: Vital Signs Date Time Temp Pulse Resp B/P (MAP) Pulse Ox O2 Delivery O2 Flow Rate FiO2 03/08/20 16:46 97.3 93 16 114/92 (99) 95 03/05/20 06:24 Room Air I & O 03/07/20 03/07/20 03/08/20 15:00 23:00 07:00 Intake Total 0 ml 40 ml Output Total 700 ml Balance 0 ml 40 ml -700 ml Labs: Laboratory Tests Test 03/08/20 07:29 03/08/20 18:45 03/08/20 19:15 Glucose (Fingerstick) 99 mg/dL (70-99) 98 mg/dL (70-99) White Blood Count 9.8 x10^3/uL (4.0-11.0) Red Blood Count 4.86 x10^6/uL (3.50-5.40) Hemoglobin 15.2 g/dL (12.0-15.5) Hematocrit 45.7 % (36.0-47.0) Mean Corpuscular Volume 94 fL (79-100) Mean Corpuscular Hemoglobin 31 pg (25-35) Mean Corpuscular Hemoglobin Concent 33 g/dL (31-37) Red Cell Distribution Width 14.4 % (11.5-14.5) Platelet Count 246 x10^3/uL (140-400) Sodium Level 142 mmol/L (136-145) Potassium Level 4.0 mmol/L (3.5-5.1) Chloride Level 108 mmol/L (98-107) H Carbon Dioxide Level 24 mmol/L (21-32) Anion Gap 10 (6-14) Blood Urea Nitrogen 17 mg/dL (7-20) Creatinine 0.6 mg/dL (0.6-1.0) Estimated GFR (Cockcroft-Gault) 101.3 BUN/Creatinine Ratio 28 (6-20) H Glucose Level 114 mg/dL (70-99) H Calcium Level 9.7 mg/dL (8.5-10.1) Total Bilirubin 0.3 mg/dL (0.2-1.0) Aspartate Amino Transferase (AST) 31 U/L (15-37) Alanine Aminotransferase (ALT) 38 U/L (14-59) Alkaline Phosphatase 71 U/L (46-116) Total Protein 7.5 g/dL (6.4-8.2) Albumin 2.9 g/dL (3.4-5.0) L Albumin/Globulin Ratio 0.6 (1.0-1.7) L Current Medications: Meds: Current Medications Medications (Trade) Dose Ordered Sig/Britta Route PRN Reason Start Time Stop Time Status Last Admin Dose Admin Valproic Acid (Depakene) 500 mg BID PO 03/08/20 21:00 03/08/20 20:50 I have reviewed the current psychotropics carefully including drug interactions. Risk benefit ratio favors no change other than as noted in my dictated progress note. Diagnosis: Problems: (1) Impulse control disorder, unspecified (2) Anxiety disorder, unspecified (3) Dementia, vascular, with depression (4) Dementia, vascular, with delusions (5) Dementia in Alzheimer's disease with depression (6) Dementia in Alzheimer's disease with delusions (7) Major neurocognitive disorder, due to vascular disease, with behavioral disturbance, mild KISHAN BECK MD Mar 08, 2020 22:19
--- NOTE | 2020-03-08 23:44 | NUR ---
Pt drowsy in her broda all evening. Compliant with crushed medications with several attempts. Attempted to administer Depakene in small amount of Boost. Pt swished the liquid around in her mouth and proceeded to spit it all back out. Pt currently sleeping in bed.
[2020-03-09] MEDS: LEVOTHYROXINE 25 MCG TABLET. PO SCH (05:05)
[2020-03-09 05:37] VITALS: BP 111/79
--- NOTE | 2020-03-09 07:28 | PDOC ---
Exam Note: Gary Note: This note is a late entry for 03/08/2020 covers elements not covered in my initial note. Subjective: The patient was seen individually in the evening of 03/08/2020. Per Radha DUTTA, she slept 6-3/4 hours previous night. She has been sleepy, sedated all of the day. She slept till 10 a.m., refusing medications. She is on Augmentin for UTI. Review of Systems: Ambulation impaired in Broda chair. No CV, , pulmonary, eye system symptoms on review. Reliability poor. Mental Status Exam: Oriented to herself. Insight and judgment, recent and remote memory, attention and concentration, fund of knowledge is poor consistent with her diagnoses. Laboratory Data: Reviewed. Impression: Major neurocognitive disorder, Alzheimer, vascular with delusions, depression and behavioral disturbance. Anxiety disorder unspecified. Impulse control disorder unspecified. Plan: No change from initial note but we will go ahead and stop the Seroquel 12 .5 mg 0900, 1300 due to sedation and reduce the Depakene 750 mg b.i.d. to 500 mg b.i.d. again due to sedation. Check CBC, CMP, and make sure she is not getting dehydrated. Continue rest psychotropics and adjust clinically as indicated. Assessment: Vital Signs/I&O: Vital Signs Date Time Temp Pulse Resp B/P (MAP) Pulse Ox O2 Delivery O2 Flow Rate FiO2 03/09/20 05:37 98.0 91 18 111/79 (90) 94 03/05/20 06:24 Room Air Labs: Laboratory Tests Test 03/08/20 07:29 03/08/20 18:45 03/08/20 19:15 03/09/20 07:20 Glucose (Fingerstick) 99 mg/dL (70-99) 98 mg/dL (70-99) 95 mg/dL (70-99) White Blood Count 9.8 x10^3/uL (4.0-11.0) Red Blood Count 4.86 x10^6/uL (3.50-5.40) Hemoglobin 15.2 g/dL (12.0-15.5) Hematocrit 45.7 % (36.0-47.0) Mean Corpuscular Volume 94 fL (79-100) Mean Corpuscular Hemoglobin 31 pg (25-35) Mean Corpuscular Hemoglobin Concent 33 g/dL (31-37) Red Cell Distribution Width 14.4 % (11.5-14.5) Platelet Count 246 x10^3/uL (140-400) Sodium Level 142 mmol/L (136-145) Potassium Level 4.0 mmol/L (3.5-5.1) Chloride Level 108 mmol/L (98-107) H Carbon Dioxide Level 24 mmol/L (21-32) Anion Gap 10 (6-14) Blood Urea Nitrogen 17 mg/dL (7-20) Creatinine 0.6 mg/dL (0.6-1.0) Estimated GFR (Cockcroft-Gault) 101.3 BUN/Creatinine Ratio 28 (6-20) H Glucose Level 114 mg/dL (70-99) H Calcium Level 9.7 mg/dL (8.5-10.1) Total Bilirubin 0.3 mg/dL (0.2-1.0) Aspartate Amino Transferase (AST) 31 U/L (15-37) Alanine Aminotransferase (ALT) 38 U/L (14-59) Alkaline Phosphatase 71 U/L (46-116) Total Protein 7.5 g/dL (6.4-8.2) Albumin 2.9 g/dL (3.4-5.0) L Albumin/Globulin Ratio 0.6 (1.0-1.7) L Current Medications: Meds: Current Medications Medications (Trade) Dose Ordered Sig/Britta Route PRN Reason Start Time Stop Time Status Last Admin Dose Admin Valproic Acid (Depakene) 500 mg BID PO 03/08/20 21:00 03/08/20 20:50 I have reviewed the current psychotropics carefully including drug interactions. Risk benefit ratio favors no change other than as noted in my dictated progress note. Diagnosis: Problems: (1) Impulse control disorder, unspecified (2) Anxiety disorder, unspecified (3) Dementia, vascular, with depression (4) Dementia, vascular, with delusions (5) Dementia in Alzheimer's disease with depression (6) Dementia in Alzheimer's disease with delusions (7) Major neurocognitive disorder, due to vascular disease, with behavioral disturbance, mild KISHAN BECK MD Mar 09, 2020 07:28
[2020-03-09] MEDS: NYSTATIN 100,000 UNIT/GM TOPICAL CREAM 15GM TUBE. TP SCH ×2 (09:00→21:00)
--- NOTE | 2020-03-09 09:51 | NUR ---
ODALYS left a message for ODALYS Lagos at [facility] to contact ODALYS re: an update on pt.
--- NOTE | 2020-03-09 10:02 | NUR ---
ODALYS contacted pt dtr, Asia, to follow up on the conversation had with pt nurse today. Asia questioned if pt would qualify for Hospice. ODALYS explained that it would be on the fence. Pt is not able to form complete sentences, nor is she eating as she has lost a total of 8 lbs since admission. Pt does need assistance with all ADL's; however, she does not have a comorbidity that would qualify her (e.g. COPD, CHF) as diabetes and high blood pressure is not enough. ODALYS explained that the referral could be sent and we could see if pt qualifies for hospice. They may say she does not; however, she could qualify for palliative care services. ODALYS went over the different and Asia figured they would determine best services based of the notes and phone calls to all parties, in which ODALYS agreed that was the case. Asia questioned pt DNR as she has family who feels like she is giving up on pt. Her brother has asked about a feeding tube but pt felt under the DNR, that would be inappropriate. ODALYS agreed as a pt DNR stops any preventative measures to be taken to "save her life"; which Asia said is a mute point if she can't walk or talk again like she did before her decline. ODALYS encouraged Asia to talk about the with the hospice team once time comes to see what is appropriate under a DNR status.
[2020-03-09] MEDS: LACTOBACILLUS RHAMNOSUS GG 1 CAPSULE. PO SCH ×2 (11:19→21:00)
[2020-03-09] MEDS: FAMOTIDINE 20 MG TABLET PO SCH (11:19)
--- NOTE | 2020-03-09 11:19 | NUR ---
ODALYS received a call from Yolis. ODALYS went over pt situation and discussed wanting to get a hospice consult completed to see if she qualifies. Yolis reports that they use [facility]. And ODALYS went over in the event that hospice was not an option, maybe they could do palliative care. Yolis reports that [facility] could do palliative care and they would prefer to go ahead and get pt back sooner than later. ODALYS will make sure to keep Yolis up to date on the referral and where things are at.
[2020-03-09] MEDS: metFORMIN 500 MG TABLET PO SCH ×2 (11:20→17:00)
[2020-03-09] MEDS: POTASSIUM CHLORIDE 20 MEQ TABLET.ER. PO SCH ×2 (11:20→21:00)
[2020-03-09] MEDS: LISINOPRIL 10 MG TABLET PO SCH (11:21)
[2020-03-09] MEDS: AMOXICILLIN/K CLAV 875/125MG TABLET. PO SCH ×2 (11:21→21:00)
[2020-03-09] MEDS: GABAPENTIN 250 MG/5 ML ORAL SOLUTION. PO SCH (11:21)
[2020-03-09] MEDS: buPROPion 100 MG TABLET PO SCH ×2 (11:21→13:00)
[2020-03-09] MEDS: VALPROATE ACID 250 MG/5 ML ORAL SOLUTION PO SCH ×2 (11:21→21:00)
[2020-03-09 15:47] VITALS: BP 72/54
--- NOTE | 2020-03-09 18:24 | NUR ---
Patient has been lethargic all day. Afternoon meds held. Pt is holding food/drink in her mouth and it takes a bit for her to swallow. Appears that patient does not know what to do with it. RN spoke with daughter today, informed daughter of patients current condition. RN suggested hospice, daughter feels that this is the best answer for patients condition. Frank notified. [facility].
[2020-03-09 19:26] VITALS: BP 110/74
[2020-03-09] MEDS: MELATONIN 3 MG TABLET PO SCH (21:00)
[2020-03-09] MEDS: traZODone 50 MG TABLET. PO SCH (21:00)
[2020-03-09] MEDS: ATORVASTATIN CALCIUM 20 MG TABLET PO SCH (21:00)
--- NOTE | 2020-03-09 22:09 | PDOC ---
Exam Note: Gary Note: Please also refer to the separate dictated note~for this date of service dictated separately.~Patient seen individually. Discussed the patient with Nursing staff reviewed the chart.~Reviewed interim history and current functioning. Reviewed vital signs,~Labs/ Radiology~and current medications noted below. Continue current treatment with the changes noted in the dictated addendum note Assessment: Vital Signs/I&O: Vital Signs Date Time Temp Pulse Resp B/P (MAP) Pulse Ox O2 Delivery O2 Flow Rate FiO2 03/09/20 19:26 98 110/74 (86) 92 Room Air 03/09/20 15:47 98.7 24 Labs: Laboratory Tests Test 03/09/20 07:20 03/09/20 20:01 Glucose (Fingerstick) 95 mg/dL (70-99) 97 mg/dL (70-99) Current Medications: I have reviewed the current psychotropics carefully including drug interactions. Risk benefit ratio favors no change other than as noted in my dictated progress note. Diagnosis: Problems: (1) Impulse control disorder, unspecified (2) Anxiety disorder, unspecified (3) Dementia, vascular, with depression (4) Dementia, vascular, with delusions (5) Dementia in Alzheimer's disease with depression (6) Dementia in Alzheimer's disease with delusions (7) Major neurocognitive disorder, due to vascular disease, with behavioral disturbance, mild KISHAN BECK MD Mar 09, 2020 22:09
--- NOTE | 2020-03-09 22:28 | NUR ---
Pt lethargic this HS. Pt open eyes when this RN says her name, but immediately closes her eyes again. Vitals assessed and stable. Evening medications held.
[2020-03-10] MEDS: ACETAMINOPHEN 325 MG TABLET PO PRN ×3 (05:06→18:33)
[2020-03-10] MEDS: LEVOTHYROXINE 25 MCG TABLET. PO SCH (05:06)
[2020-03-10 05:37] VITALS: BP 140/94
--- NOTE | 2020-03-10 07:14 | PDOC ---
Exam Note: Gary Note: This note is a late entry for 03/09/2020 covers elements not covered in my initial note. Subjective: The patient was seen individually in the evening of 03/09/2020. Per Radha DUTTA, she slept 7 hours previous night. She has been somewhat lethargic, does not know how to drink, quite confused. Review of Systems: Ambulation impaired in Broda chair. No CV, , pulmonary, eye system symptoms on review. Reliability poor. Mental Status Exam: Oriented to herself. Insight and judgment, recent and remote memory, attention and concentration, fund of knowledge is poor consistent with her diagnoses. Laboratory Data: Reviewed. Chemistry profile unremarkable. Impression: Major neurocognitive disorder, Alzheimer, vascular with delusions, depression and behavioral disturbance. Anxiety disorder unspecified. Impulse control disorder unspecified. Plan: No change from initial note. Assessment: Vital Signs/I&O: Vital Signs Date Time Temp Pulse Resp B/P (MAP) Pulse Ox O2 Delivery O2 Flow Rate FiO2 03/10/20 05:37 97.5 90 22 140/94 (109) 96 Room Air I & O 03/09/20 03/09/20 03/10/20 15:00 23:00 07:00 Intake Total 0 ml 240 ml Output Total 450 ml Balance 0 ml 240 ml -450 ml Labs: Laboratory Tests Test 03/09/20 07:20 03/09/20 20:01 Glucose (Fingerstick) 95 mg/dL (70-99) 97 mg/dL (70-99) Current Medications: I have reviewed the current psychotropics carefully including drug interactions. Risk benefit ratio favors no change other than as noted in my dictated progress note. Diagnosis: Problems: (1) Impulse control disorder, unspecified (2) Anxiety disorder, unspecified (3) Dementia, vascular, with depression (4) Dementia, vascular, with delusions (5) Dementia in Alzheimer's disease with depression (6) Dementia in Alzheimer's disease with delusions (7) Major neurocognitive disorder, due to vascular disease, with behavioral disturbance, mild KISHAN BECK MD Mar 10, 2020 07:14
[2020-03-10] MEDS: metFORMIN 500 MG TABLET PO SCH ×2 (08:00→12:32)
[2020-03-10] MEDS: NYSTATIN 100,000 UNIT/GM TOPICAL CREAM 15GM TUBE. TP SCH ×2 (08:24→20:42)
[2020-03-10] MEDS: AMOXICILLIN/K CLAV 875/125MG TABLET. PO SCH ×2 (08:30→20:51)
[2020-03-10] MEDS: LACTOBACILLUS RHAMNOSUS GG 1 CAPSULE. PO SCH ×2 (08:30→20:43)
[2020-03-10] MEDS: FAMOTIDINE 20 MG TABLET PO SCH (08:30)
[2020-03-10] MEDS: buPROPion 100 MG TABLET PO SCH ×2 (08:30→12:30)
[2020-03-10] MEDS: VALPROATE ACID 250 MG/5 ML ORAL SOLUTION PO SCH ×2 (08:31→20:44)
[2020-03-10] MEDS: POTASSIUM CHLORIDE 20 MEQ TABLET.ER. PO SCH ×2 (08:31→20:42)
[2020-03-10] MEDS: LISINOPRIL 10 MG TABLET PO SCH (08:37)
[2020-03-10] MEDS: GABAPENTIN 250 MG/5 ML ORAL SOLUTION. PO SCH (08:48)
--- NOTE | 2020-03-10 13:48 | NUR ---
NURSING NOTE PT WAS IN HER BED THIS AM UPON ASSESSMENT AND MEDICATION ADMINISTRATION. PT WAS NON VERBAL THIS AM AND DID NOT ANSWER ANY QUESTIONS. PT DID TAKE HER MEDS CRUSHED IN STRAWBERRY ENSURE, METFORMIN HELD D/T PT NOT EATING. PT IS RESTLESS IN THE BED, REPOSITIONED FOR COMFORT. ORDERED ZHONG BOOTS FOR PT, APPLIED. PT HAS NYSTATIN ORDERED FOR SKIN FOLDS, APPLIED THIS AM. AFTER LUNCH, PT WAS MOANING. PRN TYLENOL GIVEN TO PT. PT TOOK CRUSHED WITH STRAWBERRY ENSURE WITH ENCOURAGEMENT. PT WAS ABLE TO SWALLOW FINE WHILE DRINKING ENSURE. WILL CONTINUE TO MONITOR. TRA JOHNSON
--- NOTE | 2020-03-10 14:07 | NUR ---
ODALYS returned call to Drea at [facility] to discuss pt case and mentioned that she would be able to discharge home whenever all parties were ready. Drea reports that she would prefer tomorrow if possible. For them the sooner the better as with the holiday coming up, they can see her and get everything taken care of before the holiday. ODALYS will plan to follow up with Yolis on this and will call Drea back with the final decision.
--- NOTE | 2020-03-10 14:31 | NUR ---
ODALYS contacted ODALYS Lagos at [facility] to discuss discharge plans. Hospice is on board and requested [facility], in which [facility] agreed. In looking at the schedule, [facility] initially requested Sunday but saw that they moved the morning admission to afternoon. So if transport for pt could be at the facility as early in the morning as possible, that would be just fine. ODALYS will attempt to get pt to the facility no later than 1030. If anything comes up or changes, ODALYS will let Yolis know.
--- NOTE | 2020-03-10 15:12 | NUR ---
ODALYS returned call to Asia to inform her that SW has everything set up for pt to return tomorrow per request of the hospice agency and the facility. ODALYS informed pt that pt continues to not eat or eat very less in which her weight loss has reached roughly 10lbs since admit. Pt dtr would like to be informed as to when pt leaves so she can time things enough to potentially be at the facility to sign everything for hospice. Asia was very thankful for staff and all the work and concerns put into pt case.
[2020-03-10 16:51] VITALS: BP 140/85
[2020-03-10] MEDS ORDERED: ACET325T21 PO (17:09)
[2020-03-10] MEDS ORDERED: AMOX1TAB11 PO (17:11)
[2020-03-10] MEDS ORDERED: BISA10SU4 RC (17:13)
[2020-03-10] MEDS ORDERED: CHOL500021 PO (17:15)
[2020-03-10] MEDS ORDERED: GABA-586 PO (17:17)
[2020-03-10] MEDS ORDERED: GABA300S PO (17:18)
[2020-03-10] MEDS ORDERED: LACT1CAP19 PO (17:19)
[2020-03-10] MEDS ORDERED: MAG30ORA2 PO (17:21)
[2020-03-10] MEDS ORDERED: MAGN24003 PO (17:21)
[2020-03-10] MEDS ORDERED: METH28OI2 TP (17:23)
[2020-03-10] MEDS ORDERED: NYST15CR TP (17:24)
[2020-03-10] MEDS ORDERED: POTA20TA4 PO (17:25)
[2020-03-10] MEDS ORDERED: NYST15PO9 TP (17:25)
[2020-03-10] MEDS ORDERED: VALP500S PO (17:30)
[2020-03-10] MEDS ORDERED: ZINC56CR2 TP (17:31)
[2020-03-10] MEDS ORDERED: BUPR100T7 PO (17:35)
[2020-03-10] MEDS ORDERED: OXYC5TAB88 PO (17:36)
[2020-03-10] MEDS ORDERED: TRAZ-120 PO ×2 (17:37→17:38)
--- NOTE | 2020-03-10 17:50 | NUR ---
[facility] Social Work Discharge Planning Form Patient Name MARVIN GALDAMEZ Admit Date: 11 February 2020 DISCHARGE PLAN Discharge Destination: Back to [facility] on 11 March 2020 Care Assessment: N/A Level II Assessment: N/A Transportation: [facility] will provide non-emergency transport at 0730AM Special Instructions/Notes: Please fax the medication list and discharge orders to the fax numbers listed below. DISCHARGE TO FACILITY Facility: [facility] Address: [address] [place] [address] [place] [address] Contact Name: [facility] SW: Contact Name: Please ask for nurse caring for pt upon admission. PCP: Dr. Jose Yang Hospice: [facility] (Attn: Drea) Contact Information: [address] [place] [address] Appointment: Will meet with pt tomorrow as she arrives to the facility.
[2020-03-10] MEDS: traZODone 50 MG TABLET. PO SCH (20:44)
[2020-03-10] MEDS: ATORVASTATIN CALCIUM 20 MG TABLET PO SCH (20:44)
[2020-03-10] MEDS: MELATONIN 3 MG TABLET PO SCH (20:44)
[2020-03-10] MEDS: oxyCODONE IR 5 MG TABLET PO PRN (20:51)
--- NOTE | 2020-03-10 22:19 | PDOC ---
Exam Note: Gary Note: Please also refer to the separate dictated note~for this date of service dictated separately.~Patient seen individually. Discussed the patient with Nursing staff reviewed the chart.~Reviewed interim history and current functioning. Reviewed vital signs,~Labs/ Radiology~and current medications noted below. Continue current treatment with the changes noted in the dictated addendum note Assessment: Vital Signs/I&O: Vital Signs Date Time Temp Pulse Resp B/P (MAP) Pulse Ox O2 Delivery O2 Flow Rate FiO2 03/10/20 20:51 22 Room Air 03/10/20 18:28 100.0 03/10/20 16:51 105 140/85 (103) 93 I & O 03/09/20 03/09/20 03/10/20 15:00 23:00 07:00 Intake Total 0 ml 240 ml Output Total 450 ml Balance 0 ml 240 ml -450 ml Labs: Laboratory Tests Test 03/10/20 07:50 03/10/20 19:20 Glucose (Fingerstick) 115 mg/dL (70-99) H 172 mg/dL (70-99) H Current Medications: I have reviewed the current psychotropics carefully including drug interactions. Risk benefit ratio favors no change other than as noted in my dictated progress note. Diagnosis: Problems: (1) Impulse control disorder, unspecified (2) Anxiety disorder, unspecified (3) Dementia, vascular, with depression (4) Dementia, vascular, with delusions (5) Dementia in Alzheimer's disease with depression (6) Dementia in Alzheimer's disease with delusions (7) Major neurocognitive disorder, due to vascular disease, with behavioral dis turbance, mild EBONYKISHAN MD Mar 10, 2020 22:19
--- NOTE | 2020-03-10 23:31 | NUR ---
On assessment pt is restless in bed. Pt is moaning and crying. Pt unable to verbalize needs to RN. Pt given augmentin and PRN Roxicodone as ordered in small bite of pudding, all other medications held. Pt cleaned and repositioned in the bed. Pt resting comfortably at this time.
[2020-03-11] MEDS: oxyCODONE IR 5 MG TABLET PO PRN (03:48)
[2020-03-11 05:40] VITALS: BP 132/79
[2020-03-11] MEDS: LEVOTHYROXINE 25 MCG TABLET. PO SCH (06:00)
--- NOTE | 2020-03-11 06:10 | NUR ---
Report given to TRA May at [facility].
--- NOTE | 2020-03-11 07:25 | PDOC ---
Exam Note: Gary Note: This note is a late entry for 03/10/2020 covers elements not covered in my initial note. Subjective: The patient was seen individually in the evening of 03/10/2020. Per Yadira RN, the patient has been screened for possible discharge tomorrow for hospice care and she will be transitioning to [facility]. The patient has been withdrawn, isolative, confused. She slept 9-3/4 hours previous night. She does have UTI, on Augmentin. Review of Systems: Ambulation impaired in Broda chair. No CV, , pulmonary, eye system symptoms on review. Reliability poor. Mental Status Exam: Oriented to herself. Insight and judgment, recent and remote memory, attention and concentration, fund of knowledge is poor consistent with her diagnoses. Laboratory Data: Reviewed. Impression: Major neurocognitive disorder, Alzheimer, vascular with delusions, depression and behavioral disturbance. Anxiety disorder unspecified. Impulse control disorder unspecified. Current UTI being treated. Plan: No change from initial note. Transition to intermediate on hospice care tomorrow. We will make further adjustments post return to intermediate. Assessment: Vital Signs/I&O: Vital Signs Date Time Temp Pulse Resp B/P (MAP) Pulse Ox O2 Delivery O2 Flow Rate FiO2 03/11/20 05:40 98.1 86 22 132/79 (96) 94 Room Air I & O 03/10/20 03/10/20 03/11/20 15:00 23:00 07:00 Intake Total 360 ml 20 ml Balance 360 ml 20 ml Labs: Laboratory Tests Test 03/10/20 07:50 03/10/20 19:20 Glucose (Fingerstick) 115 mg/dL (70-99) H 172 mg/dL (70-99) H Current Medications: I have reviewed the current psychotropics carefully including drug interactions. Risk benefit ratio favors no change other than as noted in my dictated progress note. Diagnosis: Problems: (1) Impulse control disorder, unspecified (2) Anxiety disorder, unspecified (3) Dementia, vascular, with depression (4) Dementia, vascular, with delusions (5) Dementia in Alzheimer's disease with depression (6) Dementia in Alzheimer's disease with delusions (7) Major neurocognitive disorder, due to vascular disease, with behavioral disturbance, mild KISHAN BECK MD Mar 11, 2020 07:25
[2020-03-11] MEDS: ACETAMINOPHEN 325 MG TABLET PO PRN (07:40)
--- NOTE | 2020-03-11 07:43 | NUR ---
PRN tylenol given prior to d/c.
--- NOTE | 2020-03-11 07:44 | NUR ---
Transition Record was faxed to follow-up provider with the following elements: Reason for admission, procedures, tests, principal diagnosis, pending studies, patient instructions, 02/04 contact information for unit, phone number to obtain pending test results, plan for follow-up care, physician follow-up, advanced directive information, and medication list with dose, duration and instructions. This information was included in the following documents: History and physical, lab results, study results, progress notes, social work planning form, DC instruction form, patient visit summary, and medication reconciliation form. Date & time record faxed: 03/11/2020 @ 0053 Record faxed to: Shilpi Robledo @ [phone] Record discussed with/ report given to: EMS
--- NOTE | 2020-03-11 22:15 | PDOC ---
Exam Note: Gary Note: Please also refer to the separate dictated note~for this date of service dictated separately.~Patient seen individually. Discussed the patient with Nursing staff reviewed the chart.~Reviewed interim history and current functioning. Reviewed vital signs,~Labs/ Radiology~and current medications noted below. Continue current treatment with the changes noted in the dictated addendum note Assessment: Vital Signs/I&O: Vital Signs Date Time Temp Pulse Resp B/P (MAP) Pulse Ox O2 Delivery O2 Flow Rate FiO2 03/11/20 05:40 98.1 86 22 132/79 (96) 94 Room Air I & O 03/10/20 03/10/20 03/11/20 15:00 23:00 07:00 Intake Total 360 ml 20 ml Balance 360 ml 20 ml Current Medications: I have reviewed the current psychotropics carefully including drug interactions. Risk benefit ratio favors no change other than as noted in my dictated progress note. Diagnosis: Problems: (1) Impulse control disorder, unspecified (2) Anxiety disorder, unspecified (3) Dementia, vascular, with depression (4) Dementia, vascular, with delusions (5) Dementia in Alzheimer's disease with depression (6) Dementia in Alzheimer's disease with delusions (7) Major neurocognitive disorder, due to vascular disease, with behavioral disturbance, mild KISHAN BECK MD Mar 11, 2020 22:14
--- NOTE | 2020-03-13 23:29 | DS ---
DATE OF DISCHARGE: 03/11/2020 DISCHARGE SUMMARY/PSYCHIATRIC PROGRESS NOTE This late entry 03/11/2020 covers elements not covered in my initial note. REASON FOR ADMISSION: Please refer to the admission history for details. Briefly, the patient is a 60-year-old female referred to us from [facility] on account of worsening confusion with a diagnosis of major neurocognitive disorder, Alzheimer, vascular with delusion, depression, behavioral disturbance; anxiety disorder and a prior history of bipolar disorder after I reviewed at length the patient's past history of mood swings and erratic behaviors and rather bizarre, manic behaviors. The patient had been agitated, aggressive, restless, unable to settle down and was scared, was picking on her skin. She had [facility] the [facility], prompting this admission. SIGNIFICANT FINDINGS AND CLINICAL COURSE: Following admission, the patient was seen daily individually by myself from a psychiatric standpoint, medical followup with Dr. Hedrick/Dr. Salinas. We reviewed the patient's history at length with the daughter and she seemed to stabilize on a combination of Depakene 500 mg b.i.d. for the bipolar disorder with a level therapeutic at 68. Ativan 0.5 mg q. 6 hours p.r.n., melatonin 9 mg at bedtime, gabapentin 300 mg daily, Wellbutrin 100 mg twice a day, trazodone 50 mg at bedtime, may repeat x 1 for insomnia. The patient also had a UTI and was on Augmentin shortly prior to discharge. She remained confused, but gradually mood lability, agitation, the crying spells, all appeared to improve prior to discharge, 03/11/2019, REVIEW OF SYSTEMS: Ambulation impaired, in wheelchair. No CV, , pulmonary, eye, ENT system symptoms on review. MENTAL STATUS EXAM: Oriented to herself. Insight, judgment, recent and remote memory, attention, concentration, fund of knowledge poor, consistent with her diagnoses. FINAL DIAGNOSES: Major neurocognitive disorder, Alzheimer, vascular with delusion, depression, behavioral disturbance; anxiety disorder, unspecified; impulse control disorder, unspecified; bipolar 1 disorder, mixed with psychotic features, urinary tract infection. Rest unchanged from admission. DISCHARGE MEDICATIONS: Please refer to the [facility]. DISCHARGE INSTRUCTIONS: Outpatient psychiatric and medical followup at the prison. Time for discharge today management is greater than 30 minutes. MAN Zenobia BECK MD DR: Andreea JOB#: [id number] / [id number]
== END 2020-03-11 07:48 | DRG 57 ==
LOC: GEROPSY 15:47
PROVIDERS: ADMIT Psychiatry & Neurology Psychiatry; ATTEND Psychiatry & Neurology Psychiatry
DX: G30.9 Alzheimer's disease, unspecified (principal); F31.64 Bipolar disorder, current episode mixed, severe, with psychotic features; F01.51 Vascular dementia, unspecified severity, with behavioral disturbance; N39.0 Urinary tract infection, site not specified; R19.7 Diarrhea, unspecified; Z66 Do not resuscitate; R45.1 Restlessness and agitation; E11.9 Type 2 diabetes mellitus without complications; E55.9 Vitamin D deficiency, unspecified; E87.6 Hypokalemia; F41.9 Anxiety disorder, unspecified; K21.9 Gastro-esophageal reflux disease without esophagitis; I10 Essential (primary) hypertension; G89.29 Other chronic pain; G47.00 Insomnia, unspecified; M54.9 Dorsalgia, unspecified; M54.2 Cervicalgia; F63.9 Impulse disorder, unspecified; G56.00 Carpal tunnel syndrome, unspecified upper limb; R29.6 Repeated falls; Z91.81 History of falling; Z82.0 Family history of epilepsy and other diseases of the nervous system; Z79.899 Other long term (current) drug therapy
CPT/HCPCS: 36415; 70450; 71045; 72125; 74176; 78306; 80048; 80053; 80061; 80164; 81001; 82140; 82306; 82607; 82947; 83036; 83540; 83550; 83735; 84436; 84443; 84480; 85007; 85025; 85027; 85610; 86140; 86592; 87077; 87086; 87186; 93005; A9503